=== PATIENT | female | born 1955 | race African-American/Black ===

== ENCOUNTER 2019-01-17 03:26 | Inpatient (IN) | payer MEDICARE, MEDICAID ==
[~2019-01-17] VITALS: Ht 154.9 cm; Wt 86.8 kg
[~2019-01-17 03:26] MED LIST: ATOR-2 PO; CALC667C4 PO; CATATTS2 TD; CINA60 PO; HYDR-4134 PO; ISOS20TA8 PO; METO25TA6 PO; NIFE90TA43 PO; REN400 PO
[2019-01-17] MEDS ORDERED: ONDANSETRON HCL 4MG/2ML INJ IV STA (03:36)
[2019-01-17] MEDS ORDERED: NITROGLYCERIN OINT 1GM/INCH UDPKT TD ONE (03:45)
[2019-01-17] MEDS ORDERED: LABETALOL HCL 20MG/4ML CARPUJECT IV ONE (03:45)
[2019-01-17 04:10] LABS: HEMATOCRIT. 50.3 % (36.0-48.0); HEMOGLOBIN. 15.4 g/dL (12.0-16.0); MEAN CORPUSCULAR HEMOGLOBIN 24.1 pg (28.0-32.0); MEAN CORPUSCULAR VOLUME 78.7 fL (81.0-99.0); MEAN PLATELET VOLUME 8.7 fl (7.4-10.4); PLATELET 201 x1000/uL (130-400); RED BLOOD CELL COUNT 6.39 mill/uL (4.2-5.4); RED CELL DISTRIBUTION WIDTH 19.5 % (11.6-14.6)
[2019-01-17 04:15] LABS: CHLORIDE 96 mEq/L (98-107)
[2019-01-17] MEDS ORDERED: AZITHROMYCIN 500 MG in DEXT 5% WATER 250 ML IV ONE (04:30)
[2019-01-17] MEDS ORDERED: SODIUM BICARBONATE 8.4% 1 MEQ/ML 50ML SYR IV ONE ×2 (04:30→17:00)
[2019-01-17] MEDS ORDERED: CEFTRIAXONE 1 G PREMIX 50 ML IV ONE (04:30)
[2019-01-17] MEDS ORDERED: INSULIN REGULAR (HUMULIN R) 300UNITS/3ML IV ONE (04:30)
[2019-01-17] MEDS ORDERED: ALBUTEROL (0.083%) 2.5MG/3ML NEB HHN ONE (04:30)
[2019-01-17] MEDS ORDERED: DEXTROSE 50% WATER 50ML SYRINGE IV ONE (04:30)
[2019-01-17 04:39] LABS: ATYPICAL LYMPHOCYTES 2; NUCLEATED RED BLOOD CELLS 1 /100 WBC
[2019-01-17 04:40] LABS: PLATELET ESTIMATE NORMAL
[2019-01-17] MEDS ORDERED: ALBUTEROL (0.5%) 2.5MG/0.5ML NEB HHN ONE (06:03)
[2019-01-17] MEDS ORDERED: CLONIDINE 0.1MG TABLET PO PRN ×2 (12:45→17:00)
[2019-01-17] MEDS ORDERED: ACETAMINOPHEN 325MG TABLET PO PRN (12:45)
[2019-01-17] MEDS ORDERED: LABETALOL 5MG/ML SYR 20 MG/4 ML SYRINGE IV NR (12:45)
[2019-01-17] MEDS ORDERED: IPRATROPIUM/ALBUTEROL 0.5-3(2.5)MG/3ML NEB HHN PRN (12:45)
[2019-01-17] MEDS ORDERED: CEFTRIAXONE 1 G PREMIX 50 ML IV SCH (13:00)
[2019-01-17] MEDS: BLOOD SUGAR DIAGNOSTIC STRIP TEST SCH ×3 (13:00→21:00)
[2019-01-17] MEDS: INSULIN LISPRO 100 UNITS/ML SUBCUT SCH ×3 (13:20→21:00)
[2019-01-17 14:34] LABS: HEMATOCRIT. 46.4 % (36.0-48.0); HEMOGLOBIN. 14.1 g/dL (12.0-16.0); MEAN CORPUSCULAR HEMOGLOBIN 24.2 pg (28.0-32.0); MEAN CORPUSCULAR VOLUME 79.5 fL (81.0-99.0); MEAN PLATELET VOLUME 7.8 fl (7.4-10.4); PLATELET 167 x1000/uL (130-400); RED BLOOD CELL COUNT 5.83 mill/uL (4.2-5.4); RED CELL DISTRIBUTION WIDTH 19.3 % (11.6-14.6)
[2019-01-17 14:43] LABS: CHLORIDE 99 mEq/L (98-107)
[2019-01-17 16:15] LABS: PLATELET ESTIMATE NORMAL
[2019-01-17] MEDS ORDERED: DEXTROSE 50% WATER 50ML SYRINGE IV NR (17:26)
[2019-01-17] MEDS ORDERED: INSULIN REGULAR (HUMULIN R) 300UNITS/3ML IV SCH (17:28)
[2019-01-17] MEDS ORDERED: SODIUM POLYSTYRENE SULFONATE 15 G/60 ML BOT PO NR (17:30)
[2019-01-17 20:00] VITALS: BP_SYST 111; BP_DIAS 73; BP_DIAS 77
[2019-01-17] MEDS ORDERED: FAMOTIDINE 20MG TABLET PO SCH (21:00)
[2019-01-17 22:00] VITALS: BP 117/80
[2019-01-17] MEDS: DIVALPROEX SODIUM 250MG DR TABLET PO SCH (23:53)
[2019-01-17] MEDS: LEVETIRACETAM 500MG TABLET PO SCH (23:53)
[2019-01-17] MEDS: ATORVASTATIN CALCIUM 40MG TABLET PO SCH (23:53)
[2019-01-17] MEDS: GABAPENTIN 300MG CAPSULE PO SCH (23:53)
[2019-01-18] VITALS (13 sets, daily range): BP systolic 93–138; BP diastolic 54–85
[2019-01-18] MEDS ORDERED: CEFTRIAXONE 1 G PREMIX 50 ML IV SCH (05:00)
[2019-01-18] MEDS ORDERED: AZITHROMYCIN 500 MG in DEXT 5% WATER 250 ML IV SCH (06:00)
[2019-01-18 07:00] LABS: BASOPHILS % 0.5 % (0.0-2.0); EOSINOPHILS % 0.4 % (0.0-5.0); HEMATOCRIT. 46.3 % (36.0-48.0); HEMOGLOBIN. 13.7 g/dL (12.0-16.0); LYMPHOCYTES % 18.1 % (20.0-50.0); MEAN CORPUSCULAR VOLUME 80.9 fL (81.0-99.0); MEAN PLATELET VOLUME 7.9 fl (7.4-10.4); MONOCYTES % 13.2 % (2.0-8.0); NEUTROPHILS % 67.8 % (40.0-76.0); PLATELET 157 x1000/uL (130-400); RED BLOOD CELL COUNT 5.72 mill/uL (4.2-5.4); RED CELL DISTRIBUTION WIDTH 19.3 % (11.6-14.6)
[2019-01-18] MEDS: DIVALPROEX SODIUM 250MG DR TABLET PO SCH ×3 (07:39→16:05)
[2019-01-18] MEDS: BLOOD SUGAR DIAGNOSTIC STRIP TEST SCH ×4 (07:46→20:19)
[2019-01-18] MEDS: INSULIN LISPRO 100 UNITS/ML SUBCUT SCH ×4 (07:47→20:20)
[2019-01-18] MEDS: ENOXAPARIN 40MG/0.4ML SYR SUBCUT SCH (09:00)
[2019-01-18] MEDS: PREDNISOLONE ACETATE 1% OPHTH DROPS 1ML LEFTEYE SCH ×4 (09:14→20:40)
[2019-01-18] MEDS: ASPIRIN 325MG EC TABLET PO SCH (09:15)
[2019-01-18] MEDS: CALCIUM ACETATE 667MG CAPSULE PO SCH ×3 (09:25→18:00)
[2019-01-18] MEDS: METHIMAZOLE 5MG TABLET PO SCH (09:25)
[2019-01-18] MEDS: LEVETIRACETAM 500MG TABLET PO SCH ×2 (09:25→20:41)
[2019-01-18] MEDS: CINACALCET HCL 30MG TABLET PO SCH (09:25)
[2019-01-18] MEDS ORDERED: METHYLPREDNISOLONE SOD SUCC 40 MG/ML VIAL IV SCH (11:00)
[2019-01-18] MEDS: IPRATROPIUM/ALBUTEROL 0.5-3(2.5)MG/3ML NEB HHN SCH ×2 (12:00→21:45)
[2019-01-18] MEDS ORDERED: TERBUTALINE SULFATE 1MG/ML VIAL SUBCUT NR (13:00)
[2019-01-18] MEDS ORDERED: DIPHENHYDRAMINE 50MG/ML VIAL IV PRN (13:00)
[2019-01-18 14:19] LABS: T4 FREE 0.77 ng/dL (0.76-1.46)
[2019-01-18] MEDS ORDERED: LEVOFLOXACIN 500MG PREMIX 100 ML IV NR (15:00)
[2019-01-18] MEDS ORDERED: SODIUM CHLORIDE 10% FOR INH 15ML VIAL NEB INH NR (15:00)
[2019-01-18] MEDS: MONTELUKAST SODIUM 10MG TABLET PO SCH (16:05)
[2019-01-18] MEDS: METHYLPREDNISOLONE SOD SUCC 125 MG/2 ML VIAL IV SCH ×2 (16:06→20:40)
[2019-01-18] MEDS: FAMOTIDINE 20MG/2ML VIAL IV SCH (16:06)
[2019-01-18] MEDS: ATORVASTATIN CALCIUM 40MG TABLET PO SCH (20:40)
[2019-01-18] MEDS: GABAPENTIN 300MG CAPSULE PO SCH (20:41)
[2019-01-18] MEDS: LORATADINE 10MG TABLET PO SCH (20:41)
[2019-01-18] MEDS ORDERED: CLONIDINE 0.2MG TABLET PO PRN (21:45)
[2019-01-18] MEDS ORDERED: HYDRALAZINE HCL 50MG TABLET GT SCH (22:00)
[2019-01-18 22:28] LABS: BG BASE EXCESS -1.4 mmol/L (-2.0-2.0); BG CARBOXYHEMOGLOBIN 1.3 % (0.5-1.5); BG DEOXYHEMOGLOBIN 2.4 % (0.0-5.0); BG FRACTION INSPIRED OXYGEN 36; BG METHEMOGLOBIN 0.4 % (0.0-1.5); BG OXYGEN SATURATION 97.6 % (92.0-98.5); BG OXYHEMOGLOBIN 95.9 % (94.0-97.0); BG PCO2 60.8 mmHg (35.0-45.0); BG PH 7.265 (7.350-7.450); BG PO2 107.8 mmHg (75.0-100.0); BG SAMPLE SITE RIGHT RADIAL; BG VENT MODE NASAL CANNULA
[2019-01-18] MEDS ORDERED: CLONIDINE 0.1MG TABLET GT PRN (23:00)
[2019-01-19] VITALS (12 sets, daily range): BP systolic 97–162; BP diastolic 47–98
[2019-01-19] MEDS: METHYLPREDNISOLONE SOD SUCC 125 MG/2 ML VIAL IV SCH ×3 (00:31→13:13)
[2019-01-19] MEDS: IPRATROPIUM/ALBUTEROL 0.5-3(2.5)MG/3ML NEB HHN SCH ×3 (01:05→20:29)
[2019-01-19] MEDS: DIVALPROEX SODIUM 250MG DR TABLET PO SCH ×3 (06:02→22:10)
[2019-01-19] MEDS: AZITHROMYCIN 500 MG in DEXT 5% WATER 250 ML IV SCH (06:03)
[2019-01-19 07:16] LABS: HEMATOCRIT. 48.1 % (36.0-48.0); HEMOGLOBIN. 14.4 g/dL (12.0-16.0); MEAN CORPUSCULAR HEMOGLOBIN 24.2 pg (28.0-32.0); MEAN CORPUSCULAR VOLUME 80.7 fL (81.0-99.0); MEAN PLATELET VOLUME 8.2 fl (7.4-10.4); PLATELET 163 x1000/uL (130-400); RED BLOOD CELL COUNT 5.95 mill/uL (4.2-5.4); RED CELL DISTRIBUTION WIDTH 18.8 % (11.6-14.6)
[2019-01-19] MEDS: BLOOD SUGAR DIAGNOSTIC STRIP TEST SCH ×4 (08:25→20:58)
[2019-01-19] MEDS: ENOXAPARIN 40MG/0.4ML SYR SUBCUT SCH (08:46)
[2019-01-19] MEDS: ASPIRIN 325MG EC TABLET PO SCH (08:46)
[2019-01-19] MEDS: CALCIUM ACETATE 667MG CAPSULE PO SCH ×3 (08:46→17:48)
[2019-01-19] MEDS: LEVETIRACETAM 500MG TABLET PO SCH ×2 (08:46→21:14)
[2019-01-19] MEDS: CINACALCET HCL 30MG TABLET PO SCH (08:46)
[2019-01-19] MEDS: METHIMAZOLE 5MG TABLET PO SCH (08:46)
[2019-01-19] MEDS: FAMOTIDINE 20MG/2ML VIAL IV SCH (08:57)
[2019-01-19] MEDS: PREDNISOLONE ACETATE 1% OPHTH DROPS 1ML LEFTEYE SCH ×4 (08:58→21:13)
[2019-01-19] MEDS: INSULIN LISPRO 100 UNITS/ML SUBCUT SCH ×4 (08:59→21:19)
[2019-01-19 10:40] LABS: PLATELET ESTIMATE NORMAL
[2019-01-19 14:44] LABS: BG BASE EXCESS -3.9 mmol/L (-2.0-2.0); BG CARBOXYHEMOGLOBIN 1.2 % (0.5-1.5); BG DEOXYHEMOGLOBIN 2.7 % (0.0-5.0); BG FRACTION INSPIRED OXYGEN 28; BG HCO3 ACT 25.2 mmol/L (22.0-26.0); BG METHEMOGLOBIN 0.3 % (0.0-1.5); BG OXYGEN SATURATION 97.3 % (92.0-98.5); BG OXYHEMOGLOBIN 95.8 % (94.0-97.0); BG PCO2 63.3 mmHg (35.0-45.0); BG PH 7.217 (7.350-7.450); BG PO2 111.5 mmHg (75.0-100.0); BG SAMPLE SITE RIGHT RADIAL; BG TOTAL HEMOGLOBIN 14.9 g/dL (12.0-18.0); BG VENT MODE NASAL CANNULA
[2019-01-19] MEDS: MONTELUKAST SODIUM 10MG TABLET PO SCH (17:48)
[2019-01-19] MEDS: LORATADINE 10MG TABLET PO SCH (21:13)
[2019-01-19] MEDS: ATORVASTATIN CALCIUM 40MG TABLET PO SCH (21:14)
[2019-01-19] MEDS: GABAPENTIN 300MG CAPSULE PO SCH (21:15)
[2019-01-19] MEDS: METHYLPREDNISOLONE SOD SUCC 40 MG/ML VIAL IV SCH (22:11)
[2019-01-20] VITALS (12 sets, daily range): BP systolic 90–135; BP diastolic 51–83
[2019-01-20] MEDS: IPRATROPIUM/ALBUTEROL 0.5-3(2.5)MG/3ML NEB HHN SCH ×4 (01:44→21:10)
[2019-01-20 06:14] LABS: HEMATOCRIT. 47.5 % (36.0-48.0); HEMOGLOBIN. 14.5 g/dL (12.0-16.0); MEAN CORPUSCULAR HEMOGLOBIN 24.3 pg (28.0-32.0); MEAN CORPUSCULAR VOLUME 79.6 fL (81.0-99.0); MEAN PLATELET VOLUME 8.1 fl (7.4-10.4); PLATELET 209 x1000/uL (130-400); RED BLOOD CELL COUNT 5.96 mill/uL (4.2-5.4); RED CELL DISTRIBUTION WIDTH 18.8 % (11.6-14.6)
[2019-01-20] MEDS: METHYLPREDNISOLONE SOD SUCC 40 MG/ML VIAL IV SCH ×2 (06:14→21:08)
[2019-01-20] MEDS: DIVALPROEX SODIUM 250MG DR TABLET PO SCH ×3 (06:15→22:47)
[2019-01-20] MEDS: AZITHROMYCIN 500 MG in DEXT 5% WATER 250 ML IV SCH (06:18)
[2019-01-20] MEDS: BLOOD SUGAR DIAGNOSTIC STRIP TEST SCH ×4 (07:30→20:52)
[2019-01-20] MEDS: CALCIUM ACETATE 667MG CAPSULE PO SCH ×3 (08:45→18:31)
[2019-01-20] MEDS: ASPIRIN 325MG EC TABLET PO SCH (08:45)
[2019-01-20] MEDS: LEVETIRACETAM 500MG TABLET PO SCH ×2 (08:46→21:12)
[2019-01-20] MEDS: CINACALCET HCL 30MG TABLET PO SCH (08:46)
[2019-01-20] MEDS: FAMOTIDINE 20MG/2ML VIAL IV SCH (08:46)
[2019-01-20] MEDS: METHIMAZOLE 5MG TABLET PO SCH (08:46)
[2019-01-20] MEDS: ENOXAPARIN 40MG/0.4ML SYR SUBCUT SCH (08:46)
[2019-01-20] MEDS: PREDNISOLONE ACETATE 1% OPHTH DROPS 1ML LEFTEYE SCH ×4 (08:47→21:17)
[2019-01-20] MEDS: INSULIN LISPRO 100 UNITS/ML SUBCUT SCH ×4 (08:48→21:16)
[2019-01-20 10:27] LABS: BG BASE EXCESS -7.4 mmol/L (-2.0-2.0); BG CARBOXYHEMOGLOBIN 1.1 % (0.5-1.5); BG DEOXYHEMOGLOBIN 2.7 % (0.0-5.0); BG FRACTION INSPIRED OXYGEN 28; BG HCO3 ACT 21.5 mmol/L (22.0-26.0); BG METHEMOGLOBIN 0.3 % (0.0-1.5); BG OXYGEN SATURATION 97.3 % (92.0-98.5); BG OXYHEMOGLOBIN 95.9 % (94.0-97.0); BG PCO2 57.2 mmHg (35.0-45.0); BG PH 7.192 (7.350-7.450); BG PO2 108.2 mmHg (75.0-100.0); BG SAMPLE SITE RIGHT BRACHIAL; BG TOTAL HEMOGLOBIN 14.8 g/dL (12.0-18.0); BG VENT MODE NASAL CANNULA
[2019-01-20 14:14] LABS: PLATELET ESTIMATE NORMAL
[2019-01-20] MEDS ORDERED: LEVOFLOXACIN 250MG PREMIX 50 ML IV SCH (15:00)
[2019-01-20] MEDS: MONTELUKAST SODIUM 10MG TABLET PO SCH (16:19)
[2019-01-20] MEDS: LEVOFLOXACIN 250MG PREMIX 50 ML IV SCH (16:20)
[2019-01-20] MEDS: LORATADINE 10MG TABLET PO SCH (21:11)
[2019-01-20] MEDS: ATORVASTATIN CALCIUM 40MG TABLET PO SCH (21:13)
[2019-01-20] MEDS: GABAPENTIN 300MG CAPSULE PO SCH (21:13)
[2019-01-21] VITALS (20 sets, daily range): BP systolic 76–148; BP diastolic 30–80
[2019-01-21] MEDS: IPRATROPIUM/ALBUTEROL 0.5-3(2.5)MG/3ML NEB HHN SCH ×4 (02:17→21:30)
[2019-01-21] MEDS: AZITHROMYCIN 500 MG in DEXT 5% WATER 250 ML IV SCH (05:33)
[2019-01-21 06:05] LABS: HEMATOCRIT. 46.8 % (36.0-48.0); HEMOGLOBIN. 14.3 g/dL (12.0-16.0); MEAN CORPUSCULAR VOLUME 78.9 fL (81.0-99.0); MEAN PLATELET VOLUME 7.8 fl (7.4-10.4); PLATELET 203 x1000/uL (130-400); RED BLOOD CELL COUNT 5.94 mill/uL (4.2-5.4); RED CELL DISTRIBUTION WIDTH 18.9 % (11.6-14.6)
[2019-01-21] MEDS: DIVALPROEX SODIUM 250MG DR TABLET PO SCH ×3 (06:19→21:33)
[2019-01-21] MEDS: BLOOD SUGAR DIAGNOSTIC STRIP TEST SCH ×4 (07:30→21:33)
[2019-01-21] MEDS: INSULIN LISPRO 100 UNITS/ML SUBCUT SCH ×4 (08:00→21:43)
[2019-01-21 08:43] LABS: BG BASE EXCESS -2.7 mmol/L (-2.0-2.0); BG BILEVEL POS AIRWAY PRESSURE ST=20/5; BG CARBOXYHEMOGLOBIN 0.9 % (0.5-1.5); BG DEOXYHEMOGLOBIN 3.1 % (0.0-5.0); BG FRACTION INSPIRED OXYGEN 30; BG HCO3 ACT 25.7 mmol/L (22.0-26.0); BG METHEMOGLOBIN 0.2 % (0.0-1.5); BG OXYGEN SATURATION 96.9 % (92.0-98.5); BG OXYHEMOGLOBIN 95.8 % (94.0-97.0); BG PRESSURE SUPPORT 15; BG SAMPLE SITE RIGHT BRACHIAL; BG TOTAL HEMOGLOBIN 14.8 g/dL (12.0-18.0); BG VENT MODE MASK - BIPAP; BG VENT RATE 18 set
[2019-01-21] MEDS: CALCIUM ACETATE 667MG CAPSULE PO SCH ×3 (09:09→18:00)
[2019-01-21] MEDS: ENOXAPARIN 40MG/0.4ML SYR SUBCUT SCH (09:09)
[2019-01-21] MEDS: LEVETIRACETAM 500MG TABLET PO SCH ×2 (09:09→21:32)
[2019-01-21] MEDS: CINACALCET HCL 30MG TABLET PO SCH (09:09)
[2019-01-21] MEDS: METHYLPREDNISOLONE SOD SUCC 40 MG/ML VIAL IV SCH ×2 (09:09→21:33)
[2019-01-21] MEDS: FAMOTIDINE 20MG/2ML VIAL IV SCH (09:09)
[2019-01-21] MEDS: METHIMAZOLE 5MG TABLET PO SCH (09:09)
[2019-01-21] MEDS: ASPIRIN 325MG EC TABLET PO SCH (09:09)
[2019-01-21] MEDS: PREDNISOLONE ACETATE 1% OPHTH DROPS 1ML LEFTEYE SCH ×4 (09:10→21:33)
[2019-01-21 13:44] LABS: PLATELET ESTIMATE NORMAL
[2019-01-21] MEDS ORDERED: SODIUM CHLORIDE 10% FOR INH 15ML VIAL NEB INH SCH (14:00)
[2019-01-21] MEDS: MONTELUKAST SODIUM 10MG TABLET PO SCH (17:00)
[2019-01-21] MEDS: ATORVASTATIN CALCIUM 40MG TABLET PO SCH (21:32)
[2019-01-21] MEDS: GABAPENTIN 300MG CAPSULE PO SCH (21:33)
[2019-01-21] MEDS: LORATADINE 10MG TABLET PO SCH (21:33)
[2019-01-22] VITALS (23 sets, daily range): BP systolic 87–169; BP diastolic 61–94
[2019-01-22] MEDS: IPRATROPIUM/ALBUTEROL 0.5-3(2.5)MG/3ML NEB HHN SCH ×5 (02:09→23:58)
[2019-01-22] MEDS: AZITHROMYCIN 500 MG in DEXT 5% WATER 250 ML IV SCH (06:36)
[2019-01-22] MEDS: BLOOD SUGAR DIAGNOSTIC STRIP TEST SCH ×4 (06:36→20:19)
[2019-01-22] MEDS: DIVALPROEX SODIUM 250MG DR TABLET PO SCH ×3 (06:39→22:09)
[2019-01-22] MEDS: INSULIN LISPRO 100 UNITS/ML SUBCUT SCH ×4 (08:00→20:32)
[2019-01-22] MEDS: ENOXAPARIN 40MG/0.4ML SYR SUBCUT SCH (09:23)
[2019-01-22] MEDS: METHIMAZOLE 5MG TABLET PO SCH (09:24)
[2019-01-22] MEDS: FAMOTIDINE 20MG/2ML VIAL IV SCH (09:24)
[2019-01-22] MEDS: PREDNISOLONE ACETATE 1% OPHTH DROPS 1ML LEFTEYE SCH ×4 (09:24→20:19)
[2019-01-22] MEDS: CALCIUM ACETATE 667MG CAPSULE PO SCH ×3 (09:24→18:26)
[2019-01-22] MEDS: METHYLPREDNISOLONE SOD SUCC 40 MG/ML VIAL IV SCH (09:24)
[2019-01-22] MEDS: CINACALCET HCL 30MG TABLET PO SCH (09:25)
[2019-01-22] MEDS: LEVETIRACETAM 500MG TABLET PO SCH ×2 (09:25→20:19)
[2019-01-22] MEDS: ASPIRIN 325MG EC TABLET PO SCH (09:25)
[2019-01-22] MEDS: LEVOFLOXACIN 250MG PREMIX 50 ML IV SCH (13:57)
[2019-01-22] MEDS: ACETYLCYSTEINE 100MG/ML 10% VIAL 4ML INH SCH ×2 (15:36→23:58)
[2019-01-22] MEDS: PREDNISONE 20MG TABLET PO SCH (17:20)
[2019-01-22] MEDS: MONTELUKAST SODIUM 10MG TABLET PO SCH (17:21)
[2019-01-22] MEDS: ATORVASTATIN CALCIUM 40MG TABLET PO SCH (20:19)
[2019-01-22] MEDS: LORATADINE 10MG TABLET PO SCH (20:19)
[2019-01-22] MEDS: GABAPENTIN 300MG CAPSULE PO SCH (20:19)
[2019-01-23] VITALS (10 sets, daily range): BP systolic 97–142; BP diastolic 49–89
[2019-01-23] MEDS: IPRATROPIUM/ALBUTEROL 0.5-3(2.5)MG/3ML NEB HHN SCH ×5 (04:07→20:57)
[2019-01-23] MEDS: DIVALPROEX SODIUM 250MG DR TABLET PO SCH ×3 (06:12→21:03)
[2019-01-23] MEDS: BLOOD SUGAR DIAGNOSTIC STRIP TEST SCH ×4 (07:30→21:00)
[2019-01-23] MEDS: ASPIRIN 325MG EC TABLET PO SCH (08:03)
[2019-01-23] MEDS: CINACALCET HCL 30MG TABLET PO SCH (08:03)
[2019-01-23] MEDS: ENOXAPARIN 40MG/0.4ML SYR SUBCUT SCH (08:03)
[2019-01-23] MEDS: CALCIUM ACETATE 667MG CAPSULE PO SCH ×3 (08:04→17:30)
[2019-01-23] MEDS: LEVETIRACETAM 500MG TABLET PO SCH ×2 (08:04→21:02)
[2019-01-23] MEDS: AZITHROMYCIN 500 MG TABLET PO SCH (08:04)
[2019-01-23] MEDS: METHIMAZOLE 5MG TABLET PO SCH (08:04)
[2019-01-23] MEDS: INSULIN LISPRO 100 UNITS/ML SUBCUT SCH ×4 (08:21→21:00)
[2019-01-23] MEDS: PREDNISONE 20MG TABLET PO SCH ×2 (09:00→17:05)
[2019-01-23] MEDS: FAMOTIDINE 20MG/2ML VIAL IV SCH (09:00)
[2019-01-23] MEDS: PREDNISOLONE ACETATE 1% OPHTH DROPS 1ML LEFTEYE SCH ×4 (09:00→21:19)
[2019-01-23] MEDS: ACETYLCYSTEINE 100MG/ML 10% VIAL 4ML INH SCH ×2 (09:11→17:06)
[2019-01-23] MEDS: MONTELUKAST SODIUM 10MG TABLET PO SCH (17:28)
[2019-01-23] MEDS: ONDANSETRON HCL 4MG/2ML INJ IV PRN (19:49)
[2019-01-23] MEDS: LORATADINE 10MG TABLET PO SCH (21:02)
[2019-01-23] MEDS: ATORVASTATIN CALCIUM 40MG TABLET PO SCH (21:02)
[2019-01-23] MEDS: GABAPENTIN 300MG CAPSULE PO SCH (21:03)
[2019-01-24] VITALS (13 sets, daily range): BP systolic 119–141; BP diastolic 62–79
[2019-01-24] MEDS: IPRATROPIUM/ALBUTEROL 0.5-3(2.5)MG/3ML NEB HHN SCH ×6 (00:34→20:57)
[2019-01-24] MEDS: ACETYLCYSTEINE 100MG/ML 10% VIAL 4ML INH SCH ×2 (00:34→07:31)
[2019-01-24] MEDS: DIVALPROEX SODIUM 250MG DR TABLET PO SCH ×3 (06:02→21:36)
[2019-01-24 06:09] LABS: HEMATOCRIT. 44.6 % (36.0-48.0); HEMOGLOBIN. 13.8 g/dL (12.0-16.0); MEAN CORPUSCULAR HEMOGLOBIN 24.5 pg (28.0-32.0); MEAN PLATELET VOLUME 7.4 fl (7.4-10.4); PLATELET 182 x1000/uL (130-400); RED BLOOD CELL COUNT 5.65 mill/uL (4.2-5.4); RED CELL DISTRIBUTION WIDTH 18.9 % (11.6-14.6)
[2019-01-24] MEDS: BLOOD SUGAR DIAGNOSTIC STRIP TEST SCH ×4 (07:30→21:38)
[2019-01-24] MEDS: INSULIN LISPRO 100 UNITS/ML SUBCUT SCH ×4 (08:00→21:38)
[2019-01-24] MEDS: CALCIUM ACETATE 667MG CAPSULE PO SCH ×3 (08:00→17:46)
[2019-01-24] MEDS: ASPIRIN 325MG EC TABLET PO SCH ×2 (09:00→10:30)
[2019-01-24] MEDS: AZITHROMYCIN 500 MG TABLET PO SCH (10:30)
[2019-01-24] MEDS: FAMOTIDINE 20MG/2ML VIAL IV SCH (10:30)
[2019-01-24] MEDS: METHIMAZOLE 5MG TABLET PO SCH (10:30)
[2019-01-24] MEDS: LEVETIRACETAM 500MG TABLET PO SCH ×2 (10:31→21:36)
[2019-01-24] MEDS: PREDNISONE 20MG TABLET PO SCH (10:31)
[2019-01-24] MEDS: CINACALCET HCL 30MG TABLET PO SCH (10:31)
[2019-01-24] MEDS: ENOXAPARIN 40MG/0.4ML SYR SUBCUT SCH (10:32)
[2019-01-24] MEDS: PREDNISOLONE ACETATE 1% OPHTH DROPS 1ML LEFTEYE SCH ×4 (10:35→21:00)
[2019-01-24 10:48] LABS: NUCLEATED RED BLOOD CELLS 1 /100 WBC
[2019-01-24 10:49] LABS: PLATELET ESTIMATE NORMAL
[2019-01-24] MEDS: LEVOFLOXACIN 250MG TABLET PO SCH (14:40)
[2019-01-24] MEDS: MONTELUKAST SODIUM 10MG TABLET PO SCH (17:50)
[2019-01-24] MEDS: GABAPENTIN 300MG CAPSULE PO SCH (21:36)
[2019-01-24] MEDS: ATORVASTATIN CALCIUM 40MG TABLET PO SCH (21:36)
[2019-01-24] MEDS: LORATADINE 10MG TABLET PO SCH (21:36)
[2019-01-25] VITALS (12 sets, daily range): BP systolic 119–176; BP diastolic 53–111
[2019-01-25] MEDS: IPRATROPIUM/ALBUTEROL 0.5-3(2.5)MG/3ML NEB HHN SCH ×6 (00:42→21:06)
[2019-01-25] MEDS: DIVALPROEX SODIUM 250MG DR TABLET PO SCH ×3 (06:24→21:05)
[2019-01-25] MEDS: BLOOD SUGAR DIAGNOSTIC STRIP TEST SCH ×4 (06:25→21:00)
[2019-01-25] MEDS: INSULIN LISPRO 100 UNITS/ML SUBCUT SCH ×4 (06:25→21:43)
[2019-01-25 08:16] LABS: CANCER ANTIGEN 125 6.1 U/mL (0.0-38.1)
[2019-01-25] MEDS: CALCIUM ACETATE 667MG CAPSULE PO SCH ×3 (09:10→17:59)
[2019-01-25] MEDS: FAMOTIDINE 20MG/2ML VIAL IV SCH (09:11)
[2019-01-25] MEDS: ENOXAPARIN 40MG/0.4ML SYR SUBCUT SCH (09:11)
[2019-01-25] MEDS: PREDNISONE 20MG TABLET PO SCH (09:11)
[2019-01-25] MEDS: ASPIRIN 325MG EC TABLET PO SCH (09:12)
[2019-01-25] MEDS: LEVETIRACETAM 500MG TABLET PO SCH ×2 (09:12→21:05)
[2019-01-25] MEDS: METHIMAZOLE 5MG TABLET PO SCH (09:12)
[2019-01-25] MEDS: AZITHROMYCIN 500 MG TABLET PO SCH (09:12)
[2019-01-25] MEDS: CINACALCET HCL 30MG TABLET PO SCH (09:12)
[2019-01-25] MEDS: PREDNISOLONE ACETATE 1% OPHTH DROPS 1ML LEFTEYE SCH ×4 (09:14→21:16)
[2019-01-25] MEDS: MONTELUKAST SODIUM 10MG TABLET PO SCH (17:59)
[2019-01-25] MEDS ORDERED: LACTULOSE 20G/30ML UDC PO PRN (19:00)
[2019-01-25] MEDS: ATORVASTATIN CALCIUM 40MG TABLET PO SCH (21:05)
[2019-01-25] MEDS: LORATADINE 10MG TABLET PO SCH (21:05)
[2019-01-25] MEDS: GABAPENTIN 300MG CAPSULE PO SCH (21:05)
[2019-01-26] VITALS (11 sets, daily range): BP systolic 127–174; BP diastolic 69–94
[2019-01-26] MEDS: IPRATROPIUM/ALBUTEROL 0.5-3(2.5)MG/3ML NEB HHN SCH ×7 (00:22→23:47)
[2019-01-26] MEDS: DIVALPROEX SODIUM 250MG DR TABLET PO SCH ×3 (06:37→21:51)
[2019-01-26] MEDS: BLOOD SUGAR DIAGNOSTIC STRIP TEST SCH ×4 (07:30→21:51)
[2019-01-26] MEDS: INSULIN LISPRO 100 UNITS/ML SUBCUT SCH ×4 (08:00→21:52)
[2019-01-26] MEDS: FAMOTIDINE 20MG/2ML VIAL IV SCH (08:41)
[2019-01-26] MEDS: PREDNISONE 20MG TABLET PO SCH (08:41)
[2019-01-26] MEDS: LEVETIRACETAM 500MG TABLET PO SCH ×2 (08:41→21:51)
[2019-01-26] MEDS: METHIMAZOLE 5MG TABLET PO SCH (08:41)
[2019-01-26] MEDS: CALCIUM ACETATE 667MG CAPSULE PO SCH ×3 (08:41→17:17)
[2019-01-26] MEDS: CINACALCET HCL 30MG TABLET PO SCH (08:41)
[2019-01-26] MEDS: ENOXAPARIN 40MG/0.4ML SYR SUBCUT SCH (08:52)
[2019-01-26] MEDS: PREDNISOLONE ACETATE 1% OPHTH DROPS 1ML LEFTEYE SCH ×4 (08:53→21:51)
[2019-01-26] MEDS: LEVOFLOXACIN 250MG TABLET PO SCH (14:29)
[2019-01-26] MEDS: MONTELUKAST SODIUM 10MG TABLET PO SCH (17:17)
[2019-01-26] MEDS: ATORVASTATIN CALCIUM 40MG TABLET PO SCH (21:51)
[2019-01-26] MEDS: LORATADINE 10MG TABLET PO SCH (21:51)
[2019-01-26] MEDS: GABAPENTIN 300MG CAPSULE PO SCH (21:51)
[2019-01-27] VITALS (15 sets, daily range): BP systolic 130–191; BP diastolic 65–128
[2019-01-27] MEDS: IPRATROPIUM/ALBUTEROL 0.5-3(2.5)MG/3ML NEB HHN SCH ×5 (04:02→21:19)
[2019-01-27] MEDS: DIVALPROEX SODIUM 250MG DR TABLET PO SCH (05:45)
[2019-01-27] MEDS: INSULIN LISPRO 100 UNITS/ML SUBCUT SCH ×4 (08:00→20:38)
[2019-01-27] MEDS: BLOOD SUGAR DIAGNOSTIC STRIP TEST SCH ×4 (08:32→20:38)
[2019-01-27] MEDS: FAMOTIDINE 20MG/2ML VIAL IV SCH (08:32)
[2019-01-27] MEDS: METHIMAZOLE 5MG TABLET PO SCH (08:33)
[2019-01-27] MEDS: ENOXAPARIN 40MG/0.4ML SYR SUBCUT SCH (08:33)
[2019-01-27] MEDS: CINACALCET HCL 30MG TABLET PO SCH (08:33)
[2019-01-27] MEDS: PREDNISONE 20MG TABLET PO SCH (08:33)
[2019-01-27] MEDS: CALCIUM ACETATE 667MG CAPSULE PO SCH ×3 (08:33→17:37)
[2019-01-27] MEDS: ASPIRIN 325MG EC TABLET PO SCH (08:33)
[2019-01-27] MEDS: LEVETIRACETAM 500MG TABLET PO SCH (08:35)
[2019-01-27] MEDS: PREDNISOLONE ACETATE 1% OPHTH DROPS 1ML LEFTEYE SCH ×4 (08:53→20:38)
[2019-01-27 11:25] LABS: BG BASE EXCESS -5.5 mmol/L (-2.0-2.0); BG CARBOXYHEMOGLOBIN 1.1 % (0.5-1.5); BG DEOXYHEMOGLOBIN 10.2 % (0.0-5.0); BG HCO3 ACT 23.2 mmol/L (22.0-26.0); BG METHEMOGLOBIN 0.3 % (0.0-1.5); BG OXYGEN SATURATION 89.7 % (92.0-98.5); BG OXYHEMOGLOBIN 88.4 % (94.0-97.0); BG PH 7.213 (7.350-7.450); BG PO2 67.5 mmHg (75.0-100.0); BG SAMPLE SITE RIGHT RADIAL; BG TOTAL HEMOGLOBIN 14.2 g/dL (12.0-18.0); BG VENT MODE ROOM AIR
[2019-01-27] MEDS ORDERED: ASPI-986 PO (12:57)
[2019-01-27] MEDS ORDERED: CINA30 MT (12:57)
[2019-01-27] MEDS ORDERED: TAP5 MT (12:57)
[2019-01-27] MEDS ORDERED: GABA-531 MT (12:57)
[2019-01-27] MEDS ORDERED: ONDA8TAB59 MT (12:57)
[2019-01-27] MEDS ORDERED: FAMO-135 MT (12:57)
[2019-01-27] MEDS ORDERED: DOCU250C69 MT (12:57)
[2019-01-27] MEDS ORDERED: HYDR-4135 MT (12:57)
[2019-01-27] MEDS ORDERED: KEPP500 MT (12:57)
[2019-01-27] MEDS ORDERED: SUCR500T PO (12:57)
[2019-01-27] MEDS ORDERED: HYDR-4001 PO (12:57)
[2019-01-27] MEDS ORDERED: SENN-170 MT (12:57)
[2019-01-27] MEDS: CLONIDINE 0.1MG TABLET PO PRN (14:29)
[2019-01-27] MEDS ORDERED: SODIUM CHLORIDE 0.9% 10ML VIAL ONE (16:22)
[2019-01-27] MEDS ORDERED: VECURONIUM BROMIDE 10 MG/VIAL IV ONE (16:22)
[2019-01-27] MEDS ORDERED: ETOMIDATE 2MG/ML 10ML VIAL IV ONE (16:22)
[2019-01-27] MEDS: MONTELUKAST SODIUM 10MG TABLET PO SCH (17:37)
[2019-01-27] MEDS: HYDRALAZINE HCL 50MG TABLET PO SCH (18:50)
[2019-01-27] MEDS: LORATADINE 10MG TABLET PO SCH (20:38)
[2019-01-27] MEDS: ATORVASTATIN CALCIUM 40MG TABLET PO SCH (20:38)
[2019-01-27] MEDS: GABAPENTIN 300MG CAPSULE PO SCH (20:38)
[2019-01-28] VITALS (68 sets, daily range): BP systolic 61–226; BP diastolic 34–116
[2019-01-28] MEDS: IPRATROPIUM/ALBUTEROL 0.5-3(2.5)MG/3ML NEB HHN SCH ×3 (01:52→16:50)
[2019-01-28] MEDS: BLOOD SUGAR DIAGNOSTIC STRIP TEST SCH ×4 (06:24→21:36)
[2019-01-28] MEDS: INSULIN LISPRO 100 UNITS/ML SUBCUT SCH ×4 (08:00→21:36)
[2019-01-28] MEDS: ONDANSETRON HCL 4MG/2ML INJ IV PRN (08:30)
[2019-01-28 08:49] LABS: BG BASE EXCESS -9.6 mmol/L (-2.0-2.0); BG CARBOXYHEMOGLOBIN 0.8 % (0.5-1.5); BG DEOXYHEMOGLOBIN 2.6 % (0.0-5.0); BG FRACTION INSPIRED OXYGEN 28; BG HCO3 ACT 19.9 mmol/L (22.0-26.0); BG METHEMOGLOBIN 0.5 % (0.0-1.5); BG OXYGEN SATURATION 97.4 % (92.0-98.5); BG OXYHEMOGLOBIN 96.1 % (94.0-97.0); BG PCO2 58.1 mmHg (35.0-45.0); BG PH 7.153 (7.350-7.450); BG PO2 117.5 mmHg (75.0-100.0); BG SAMPLE SITE RIGHT RADIAL; BG TOTAL HEMOGLOBIN 15.2 g/dL (12.0-18.0); BG VENT MODE NASAL CANNULA
[2019-01-28] MEDS: METHIMAZOLE 5MG TABLET PO SCH ×2 (09:00→13:09)
[2019-01-28] MEDS: HYDRALAZINE HCL 50MG TABLET PO SCH ×2 (09:00→21:00)
[2019-01-28] MEDS: LEVETIRACETAM 500MG TABLET PO SCH ×2 (10:00→13:08)
[2019-01-28] MEDS: CINACALCET HCL 30MG TABLET PO SCH (10:00)
[2019-01-28] MEDS: ASPIRIN 325MG EC TABLET PO SCH (10:00)
[2019-01-28] MEDS: CALCIUM ACETATE 667MG CAPSULE PO SCH ×5 (10:00→18:22)
[2019-01-28] MEDS: PROPOFOL 10MG/ML 100ML 100 ML IV PRN ×2 (11:01→17:39)
[2019-01-28 11:23] LABS: BG BASE EXCESS -6.7 mmol/L (-2.0-2.0); BG CARBOXYHEMOGLOBIN 0.9 % (0.5-1.5); BG DEOXYHEMOGLOBIN 1.8 % (0.0-5.0); BG FRACTION INSPIRED OXYGEN 50; BG HCO3 ACT 17.7 mmol/L (22.0-26.0); BG METHEMOGLOBIN 0.4 % (0.0-1.5); BG OXYGEN SATURATION 98.2 % (92.0-98.5); BG OXYHEMOGLOBIN 96.9 % (94.0-97.0); BG PCO2 32.6 mmHg (35.0-45.0); BG PH 7.353 (7.350-7.450); BG PO2 117.8 mmHg (75.0-100.0); BG SAMPLE SITE RIGHT RADIAL; BG TIDAL VOLUME(mL) 500 mL; BG TOTAL HEMOGLOBIN 15.3 g/dL (12.0-18.0); BG VENT MODE VENT - A/C; BG VENT RATE 18 set
[2019-01-28] MEDS: DEXTROSE 50% WATER 50ML SYRINGE IV PRN ×2 (12:27→19:19)
[2019-01-28] MEDS: PREDNISOLONE ACETATE 1% OPHTH DROPS 1ML LEFTEYE SCH ×3 (13:00→21:38)
[2019-01-28] MEDS: FAMOTIDINE 20MG/2ML VIAL IV SCH (13:08)
[2019-01-28] MEDS: METHYLPREDNISOLONE SOD SUCC 40 MG/ML VIAL IV SCH ×2 (13:08→18:22)
[2019-01-28] MEDS: ENOXAPARIN 40MG/0.4ML SYR SUBCUT SCH (13:09)
[2019-01-28 13:23] LABS: BASOPHILS % 0.1 % (0.0-2.0); EOSINOPHILS % 1.2 % (0.0-5.0); HEMATOCRIT. 42.6 % (36.0-48.0); HEMOGLOBIN. 13.4 g/dL (12.0-16.0); LYMPHOCYTES % 8.4 % (20.0-50.0); MEAN CORPUSCULAR HEMOGLOBIN 24.2 pg (28.0-32.0); MEAN PLATELET VOLUME 7.6 fl (7.4-10.4); MONOCYTES % 4.9 % (2.0-8.0); NEUTROPHILS % 85.4 % (40.0-76.0); PLATELET 138 x1000/uL (130-400); RED BLOOD CELL COUNT 5.53 mill/uL (4.2-5.4); RED CELL DISTRIBUTION WIDTH 18.8 % (11.6-14.6)
[2019-01-28] MEDS ORDERED: ALBUMIN HUMAN 25GM/100ML (25%) IV NR (16:45)
[2019-01-28] MEDS ORDERED: NOREPINEPHRINE 32 MG in DEXT 5% WATER 468 ML IV PRN (16:45)
[2019-01-28] MEDS: MONTELUKAST SODIUM 10MG TABLET PO SCH ×2 (18:00→18:22)
[2019-01-28] MEDS ORDERED: DEXTROSE 50% WATER 50ML SYRINGE IV ONE (18:52)
[2019-01-28] MEDS ORDERED: EPINEPHRINE 0.1MG/ML (1:10,000) 10ML SYR ONE (18:52)
[2019-01-28 20:07] LABS: BG CARBOXYHEMOGLOBIN 1.1 % (0.5-1.5); BG DEOXYHEMOGLOBIN 0.6 % (0.0-5.0); BG FRACTION INSPIRED OXYGEN 100; BG HCO3 ACT 19.7 mmol/L (22.0-26.0); BG METHEMOGLOBIN 0.4 % (0.0-1.5); BG OXYGEN SATURATION 99.4 % (92.0-98.5); BG OXYHEMOGLOBIN 97.9 % (94.0-97.0); BG PCO2 32.3 mmHg (35.0-45.0); BG PH 7.403 (7.350-7.450); BG PO2 259.9 mmHg (75.0-100.0); BG SAMPLE SITE RIGHT RADIAL; BG TIDAL VOLUME(mL) 500 mL; BG TOTAL HEMOGLOBIN 14.7 g/dL (12.0-18.0); BG VENT MODE VENT - A/C; BG VENT RATE 16 set
[2019-01-28 20:35] LABS: HEMOGLOBIN. 14.1 g/dL (12.0-16.0); MEAN CORPUSCULAR VOLUME 76.4 fL (81.0-99.0); MEAN PLATELET VOLUME 7.4 fl (7.4-10.4); PLATELET 163 x1000/uL (130-400); RED BLOOD CELL COUNT 5.89 mill/uL (4.2-5.4); RED CELL DISTRIBUTION WIDTH 19.2 % (11.6-14.6)
[2019-01-28] MEDS: LORATADINE 10MG TABLET PO SCH (21:00)
[2019-01-28] MEDS: ATORVASTATIN CALCIUM 40MG TABLET PO SCH (21:00)
[2019-01-28] MEDS: GABAPENTIN 300MG CAPSULE PO SCH (21:00)
[2019-01-28 22:15] LABS: NUCLEATED RED BLOOD CELLS 3 /100 WBC
[2019-01-28 22:16] LABS: PLATELET ESTIMATE NORMAL
[2019-01-29] VITALS (96 sets, daily range): BP systolic 65–165; BP diastolic 33–99
[2019-01-29] MEDS: IPRATROPIUM/ALBUTEROL 0.5-3(2.5)MG/3ML NEB HHN SCH ×7 (00:37→23:47)
[2019-01-29] MEDS: METHYLPREDNISOLONE SOD SUCC 40 MG/ML VIAL IV SCH ×3 (03:21→18:45)
[2019-01-29] MEDS: BLOOD SUGAR DIAGNOSTIC STRIP TEST SCH ×4 (06:02→20:58)
[2019-01-29] MEDS: INSULIN LISPRO 100 UNITS/ML SUBCUT SCH ×4 (06:07→21:10)
[2019-01-29] MEDS: CALCIUM ACETATE 667MG CAPSULE PO SCH ×3 (06:08→17:00)
[2019-01-29 07:44] LABS: BG BASE EXCESS -2.6 mmol/L (-2.0-2.0); BG DEOXYHEMOGLOBIN 0.4 % (0.0-5.0); BG METHEMOGLOBIN 0.6 % (0.0-1.5); BG OXYGEN SATURATION 99.6 % (92.0-98.5); BG PCO2 33.5 mmHg (35.0-45.0); BG PH 7.416 (7.350-7.450); BG PO2 339.2 mmHg (75.0-100.0); BG SAMPLE SITE RIGHT RADIAL; BG TIDAL VOLUME(mL) 500 mL; BG TOTAL HEMOGLOBIN 14.7 g/dL (12.0-18.0); BG VENT MODE VENT - A/C; BG VENT RATE 16 set
[2019-01-29 08:30] LABS: HEMOGLOBIN. 13.8 g/dL (12.0-16.0); MEAN CORPUSCULAR HEMOGLOBIN 23.9 pg (28.0-32.0); MEAN CORPUSCULAR VOLUME 76.2 fL (81.0-99.0); MEAN PLATELET VOLUME 8.5 fl (7.4-10.4); PLATELET 147 x1000/uL (130-400); RED BLOOD CELL COUNT 5.77 mill/uL (4.2-5.4); RED CELL DISTRIBUTION WIDTH 19.3 % (11.6-14.6)
[2019-01-29 08:34] LABS: PHOSPHORUS 5.9 mg/dL (2.5-4.9)
[2019-01-29] MEDS: ASPIRIN 325MG EC TABLET PO SCH (09:00)
[2019-01-29] MEDS: ENOXAPARIN 40MG/0.4ML SYR SUBCUT SCH (09:00)
[2019-01-29] MEDS: METHIMAZOLE 5MG TABLET PO SCH (09:00)
[2019-01-29] MEDS: CINACALCET HCL 30MG TABLET PO SCH (09:00)
[2019-01-29] MEDS: HYDRALAZINE HCL 50MG TABLET PO SCH ×2 (09:00→20:57)
[2019-01-29 09:34] LABS: PLATELET ESTIMATE NORMAL
[2019-01-29] MEDS: FAMOTIDINE 20MG/2ML VIAL IV SCH (09:44)
[2019-01-29] MEDS: PREDNISOLONE ACETATE 1% OPHTH DROPS 1ML LEFTEYE SCH ×4 (09:44→20:56)
[2019-01-29] MEDS ORDERED: PIPERACILLIN/TAZ 3.375G PREMIX 50 ML IV SCH (14:30)
[2019-01-29] MEDS: LEVETIRACETAM 500 MG in SODIUM CHLORIDE 0.9% 100 ML IV SCH (14:49)
[2019-01-29] MEDS ORDERED: VANCOMYCIN 1500MG in DEXTROSE 5% WATER 250ML IV NR (16:00)
[2019-01-29] MEDS: PROPOFOL 10MG/ML 100ML 100 ML IV PRN (16:02)
[2019-01-29] MEDS: PIPERACILLIN/TAZ 2.25G PREMIX 50 ML IV SCH ×2 (16:22→21:00)
[2019-01-29] MEDS: MONTELUKAST SODIUM 10MG TABLET PO SCH (17:00)
[2019-01-29] MEDS: GABAPENTIN 300MG CAPSULE PO SCH (20:57)
[2019-01-29] MEDS: LORATADINE 10MG TABLET PO SCH (20:57)
[2019-01-29] MEDS: ATORVASTATIN CALCIUM 40MG TABLET PO SCH (20:57)
[2019-01-30] VITALS (93 sets, daily range): BP systolic 82–162; BP diastolic 47–121
[2019-01-30] MEDS: PROPOFOL 10MG/ML 100ML 100 ML IV PRN ×3 (01:15→18:31)
[2019-01-30] MEDS: METHYLPREDNISOLONE SOD SUCC 40 MG/ML VIAL IV SCH ×3 (02:50→18:35)
[2019-01-30] MEDS: IPRATROPIUM/ALBUTEROL 0.5-3(2.5)MG/3ML NEB HHN SCH ×5 (03:50→20:40)
[2019-01-30] MEDS: CALCIUM ACETATE 667MG CAPSULE PO SCH ×3 (06:20→16:42)
[2019-01-30] MEDS: BLOOD SUGAR DIAGNOSTIC STRIP TEST SCH ×4 (06:21→21:59)
[2019-01-30] MEDS: PIPERACILLIN/TAZ 2.25G PREMIX 50 ML IV SCH ×3 (06:21→21:59)
[2019-01-30] MEDS: INSULIN LISPRO 100 UNITS/ML SUBCUT SCH ×4 (06:21→21:00)
[2019-01-30 07:21] LABS: BG BASE EXCESS -4.3 mmol/L (-2.0-2.0); BG CARBOXYHEMOGLOBIN 0.2 % (0.5-1.5); BG DEOXYHEMOGLOBIN 1.3 % (0.0-5.0); BG HCO3 ACT 18.4 mmol/L (22.0-26.0); BG METHEMOGLOBIN 0.3 % (0.0-1.5); BG OXYGEN SATURATION 98.7 % (92.0-98.5); BG OXYHEMOGLOBIN 98.2 % (94.0-97.0); BG PCO2 27.9 mmHg (35.0-45.0); BG PH 7.438 (7.350-7.450); BG PO2 150.2 mmHg (75.0-100.0); BG SAMPLE SITE RIGHT BRACHIAL; BG TIDAL VOLUME(mL) 500 mL; BG VENT MODE VENT - A/C; BG VENT RATE 16 set
[2019-01-30] MEDS: LEVETIRACETAM 500 MG in SODIUM CHLORIDE 0.9% 100 ML IV SCH (08:55)
[2019-01-30] MEDS: ENOXAPARIN 40MG/0.4ML SYR SUBCUT SCH (08:55)
[2019-01-30] MEDS: FAMOTIDINE 20MG/2ML VIAL IV SCH (08:56)
[2019-01-30] MEDS: PREDNISOLONE ACETATE 1% OPHTH DROPS 1ML LEFTEYE SCH ×4 (08:56→21:59)
[2019-01-30] MEDS: CINACALCET HCL 30MG TABLET PO SCH (09:00)
[2019-01-30] MEDS: ASPIRIN 325MG EC TABLET PO SCH (09:00)
[2019-01-30] MEDS: HYDRALAZINE HCL 50MG TABLET PO SCH ×2 (09:00→20:44)
[2019-01-30] MEDS: METHIMAZOLE 5MG TABLET PO SCH (09:00)
[2019-01-30 12:49] LABS: HEMATOCRIT. 40.6 % (36.0-48.0); HEMOGLOBIN. 12.8 g/dL (12.0-16.0); MEAN CORPUSCULAR HEMOGLOBIN 23.9 pg (28.0-32.0); MEAN CORPUSCULAR VOLUME 76.2 fL (81.0-99.0); PLATELET 106 x1000/uL (130-400); RED BLOOD CELL COUNT 5.33 mill/uL (4.2-5.4); RED CELL DISTRIBUTION WIDTH 19.5 % (11.6-14.6)
[2019-01-30 13:21] LABS: PLATELET ESTIMATE DECREASED
[2019-01-30] MEDS: MONTELUKAST SODIUM 10MG TABLET PO SCH (16:41)
[2019-01-30] MEDS: GABAPENTIN 300MG CAPSULE PO SCH (20:44)
[2019-01-30] MEDS: LORATADINE 10MG TABLET PO SCH (20:44)
[2019-01-30] MEDS: ATORVASTATIN CALCIUM 40MG TABLET PO SCH (20:44)
[2019-01-31] VITALS (102 sets, daily range): BP systolic 79–155; BP diastolic 41–92
[2019-01-31] MEDS: IPRATROPIUM/ALBUTEROL 0.5-3(2.5)MG/3ML NEB HHN SCH ×6 (00:27→21:08)
[2019-01-31] MEDS: METHYLPREDNISOLONE SOD SUCC 40 MG/ML VIAL IV SCH ×3 (03:23→21:51)
[2019-01-31] MEDS: PROPOFOL 10MG/ML 100ML 100 ML IV PRN ×3 (04:45→19:47)
[2019-01-31 05:30] LABS: HEMATOCRIT. 39.1 % (36.0-48.0); HEMOGLOBIN. 12.2 g/dL (12.0-16.0); MEAN CORPUSCULAR HEMOGLOBIN 23.7 pg (28.0-32.0); PLATELET 112 x1000/uL (130-400); RED BLOOD CELL COUNT 5.15 mill/uL (4.2-5.4)
[2019-01-31] MEDS: PIPERACILLIN/TAZ 2.25G PREMIX 50 ML IV SCH ×3 (06:41→22:33)
[2019-01-31] MEDS: CALCIUM ACETATE 667MG CAPSULE PO SCH ×3 (07:00→17:00)
[2019-01-31 07:50] LABS: NUCLEATED RED BLOOD CELLS 1 /100 WBC; PLATELET ESTIMATE DECREASED
[2019-01-31] MEDS ORDERED: LIDOCAINE HCL 1% 20ML VIAL (Pyxis) INJ ONE (08:23)
[2019-01-31] MEDS ORDERED: IODIXANOL 320MG/ML 100 ML BOTTLE IV ONE (08:23)
[2019-01-31 08:37] LABS: BG BASE EXCESS -3.6 mmol/L (-2.0-2.0); BG CARBOXYHEMOGLOBIN 0.2 % (0.5-1.5); BG DEOXYHEMOGLOBIN 0.8 % (0.0-5.0); BG FRACTION INSPIRED OXYGEN 60; BG HCO3 ACT 18.6 mmol/L (22.0-26.0); BG METHEMOGLOBIN 0.1 % (0.0-1.5); BG OXYGEN SATURATION 99.2 % (92.0-98.5); BG OXYHEMOGLOBIN 98.9 % (94.0-97.0); BG PCO2 26.3 mmHg (35.0-45.0); BG PH 7.468 (7.350-7.450); BG PO2 213.4 mmHg (75.0-100.0); BG SAMPLE SITE RIGHT RADIAL; BG TIDAL VOLUME(mL) 500 mL; BG TOTAL HEMOGLOBIN 12.8 g/dL (12.0-18.0); BG VENT MODE VENT - A/C; BG VENT RATE 16 set
[2019-01-31] MEDS: PREDNISOLONE ACETATE 1% OPHTH DROPS 1ML LEFTEYE SCH ×4 (08:44→21:52)
[2019-01-31] MEDS: HYDRALAZINE HCL 50MG TABLET PO SCH ×2 (08:44→21:00)
[2019-01-31] MEDS: FAMOTIDINE 20MG/2ML VIAL IV SCH (08:44)
[2019-01-31] MEDS: ENOXAPARIN 40MG/0.4ML SYR SUBCUT SCH (08:45)
[2019-01-31] MEDS: METHIMAZOLE 5MG TABLET PO SCH (08:45)
[2019-01-31] MEDS: ASPIRIN 325MG EC TABLET PO SCH (08:45)
[2019-01-31] MEDS: CINACALCET HCL 30MG TABLET PO SCH (08:45)
[2019-01-31] MEDS ORDERED: ATROPINE SULFATE 1MG/10ML SYR IV PRN (09:00)
[2019-01-31] MEDS ORDERED: ACETAMINOPHEN 325MG TABLET PO PRN (09:00)
[2019-01-31] MEDS: LEVETIRACETAM 500 MG in SODIUM CHLORIDE 0.9% 100 ML IV SCH (09:52)
[2019-01-31] MEDS: INSULIN LISPRO 100 UNITS/ML SUBCUT SCH ×3 (12:00→23:17)
[2019-01-31] MEDS: BLOOD SUGAR DIAGNOSTIC STRIP TEST SCH ×3 (12:26→23:13)
[2019-01-31] MEDS ORDERED: VANCOMYCIN 1 G PREMIX 200 ML IV SCH (14:00)
[2019-01-31] MEDS: MONTELUKAST SODIUM 10MG TABLET PO SCH (17:00)
[2019-01-31] MEDS: LORATADINE 10MG TABLET PO SCH (21:00)
[2019-01-31] MEDS: GABAPENTIN 300MG CAPSULE PO SCH (21:00)
[2019-01-31] MEDS: ATORVASTATIN CALCIUM 40MG TABLET PO SCH (21:00)
[2019-02-01] VITALS (79 sets, daily range): BP systolic 99–146; BP diastolic 51–86
[2019-02-01] MEDS: IPRATROPIUM/ALBUTEROL 0.5-3(2.5)MG/3ML NEB HHN SCH ×6 (00:45→20:40)
[2019-02-01] MEDS: PIPERACILLIN/TAZ 2.25G PREMIX 50 ML IV SCH ×3 (05:32→22:01)
[2019-02-01] MEDS: BLOOD SUGAR DIAGNOSTIC STRIP TEST SCH ×4 (05:37→23:37)
[2019-02-01] MEDS: INSULIN LISPRO 100 UNITS/ML SUBCUT SCH ×4 (05:37→23:38)
[2019-02-01 05:51] LABS: HEMATOCRIT. 38.9 % (36.0-48.0); HEMOGLOBIN. 12.3 g/dL (12.0-16.0); MEAN CORPUSCULAR VOLUME 75.9 fL (81.0-99.0); MEAN PLATELET VOLUME 9.2 fl (7.4-10.4); PLATELET 99 x1000/uL (130-400); RED BLOOD CELL COUNT 5.12 mill/uL (4.2-5.4); RED CELL DISTRIBUTION WIDTH 18.9 % (11.6-14.6)
[2019-02-01] MEDS: CALCIUM ACETATE 667MG CAPSULE PO SCH ×3 (06:26→17:53)
[2019-02-01] MEDS: PROPOFOL 10MG/ML 100ML 100 ML IV PRN (06:35)
[2019-02-01] MEDS: CINACALCET HCL 30MG TABLET PO SCH (09:00)
[2019-02-01] MEDS: LEVETIRACETAM 500 MG in SODIUM CHLORIDE 0.9% 100 ML IV SCH (09:34)
[2019-02-01] MEDS: METHIMAZOLE 5MG TABLET PO SCH (09:35)
[2019-02-01] MEDS: FAMOTIDINE 20MG/2ML VIAL IV SCH (09:35)
[2019-02-01] MEDS: METHYLPREDNISOLONE SOD SUCC 40 MG/ML VIAL IV SCH ×2 (09:35→20:58)
[2019-02-01] MEDS: PREDNISOLONE ACETATE 1% OPHTH DROPS 1ML LEFTEYE SCH ×4 (09:35→20:58)
[2019-02-01] MEDS: HYDRALAZINE HCL 50MG TABLET PO SCH ×2 (09:35→20:57)
[2019-02-01] MEDS: ASPIRIN 325MG EC TABLET PO SCH (09:35)
[2019-02-01] MEDS: ENOXAPARIN 40MG/0.4ML SYR SUBCUT SCH (09:36)
[2019-02-01] MEDS: FENTANYL CITRATE/PF 500 MCG in SODIUM CHLORIDE 0.9% 40 ML IV PRN (11:56)
[2019-02-01 12:16] LABS: PLATELET ESTIMATE SLIGHTLY DECREASED
[2019-02-01] MEDS: MONTELUKAST SODIUM 10MG TABLET PO SCH (17:53)
[2019-02-01] MEDS: GABAPENTIN 300MG CAPSULE PO SCH (20:57)
[2019-02-01] MEDS: ATORVASTATIN CALCIUM 40MG TABLET PO SCH (20:57)
[2019-02-01] MEDS: LORATADINE 10MG TABLET PO SCH (20:58)
[2019-02-02] VITALS (91 sets, daily range): BP systolic 92–145; BP diastolic 45–83
[2019-02-02] MEDS: IPRATROPIUM/ALBUTEROL 0.5-3(2.5)MG/3ML NEB HHN SCH ×6 (00:30→20:45)
[2019-02-02] MEDS: BLOOD SUGAR DIAGNOSTIC STRIP TEST SCH ×4 (05:23→23:26)
[2019-02-02] MEDS: INSULIN LISPRO 100 UNITS/ML SUBCUT SCH ×4 (05:23→23:57)
[2019-02-02] MEDS: FENTANYL CITRATE/PF 500 MCG in SODIUM CHLORIDE 0.9% 40 ML IV PRN (05:28)
[2019-02-02] MEDS: PIPERACILLIN/TAZ 2.25G PREMIX 50 ML IV SCH ×3 (05:28→21:02)
[2019-02-02] MEDS: CALCIUM ACETATE 667MG CAPSULE PO SCH ×3 (06:31→18:24)
[2019-02-02] MEDS: HYDRALAZINE HCL 50MG TABLET PO SCH ×2 (08:16→21:02)
[2019-02-02] MEDS: METHYLPREDNISOLONE SOD SUCC 40 MG/ML VIAL IV SCH ×2 (08:16→21:04)
[2019-02-02] MEDS: CINACALCET HCL 30MG TABLET PO SCH (08:17)
[2019-02-02] MEDS: ASPIRIN 325MG EC TABLET PO SCH (08:17)
[2019-02-02] MEDS: METHIMAZOLE 5MG TABLET PO SCH (08:17)
[2019-02-02] MEDS: PREDNISOLONE ACETATE 1% OPHTH DROPS 1ML LEFTEYE SCH ×4 (08:59→21:02)
[2019-02-02] MEDS: FAMOTIDINE 20MG/2ML VIAL IV SCH (08:59)
[2019-02-02] MEDS: LEVETIRACETAM 500 MG in SODIUM CHLORIDE 0.9% 100 ML IV SCH (09:34)
[2019-02-02 12:01] LABS: HEMATOCRIT 38.1 % (36.0-48.0); HEMOGLOBIN 11.8 g/dL (12.0-16.0); MEAN CORPUSCULAR HEMOGLOBIN 23.8 pg (28.0-32.0); MEAN CORPUSCULAR VOLUME 77.1 fL (81.0-99.0); RED BLOOD CELL COUNT 4.95 mill/uL (4.2-5.4); RED CELL DISTRIBUTION WIDTH 19.5 % (11.6-14.6)
[2019-02-02 12:06] LABS: CHLORIDE 95 mEq/L (98-107)
[2019-02-02 12:20] LABS: PHOSPHORUS 8.1 mg/dL (2.5-4.9)
[2019-02-02 12:35] LABS: PLATELET 86 x1000/uL (130-400)
[2019-02-02 15:41] LABS: BG BASE EXCESS 0.8 mmol/L (-2.0-2.0); BG CARBOXYHEMOGLOBIN 1.2 % (0.5-1.5); BG FRACTION INSPIRED OXYGEN 40; BG HCO3 ACT 26.2 mmol/L (22.0-26.0); BG METHEMOGLOBIN 0.5 % (0.0-1.5); BG OXYHEMOGLOBIN 96.3 % (94.0-97.0); BG PH 7.383 (7.350-7.450); BG PO2 118.1 mmHg (75.0-100.0); BG PRESSURE SUPPORT 8; BG SAMPLE SITE RIGHT RADIAL; BG TOTAL HEMOGLOBIN 13.8 g/dL (12.0-18.0); BG VENT MODE VENT - CPAP
[2019-02-02] MEDS ORDERED: VANCOMYCIN 1 G PREMIX 200 ML IV NR (16:00)
[2019-02-02] MEDS: MONTELUKAST SODIUM 10MG TABLET PO SCH (18:24)
[2019-02-02] MEDS: GABAPENTIN 300MG CAPSULE PO SCH (21:02)
[2019-02-02] MEDS: LORATADINE 10MG TABLET PO SCH (21:04)
[2019-02-02] MEDS: ATORVASTATIN CALCIUM 40MG TABLET PO SCH (21:04)
[2019-02-03] VITALS (92 sets, daily range): BP systolic 86–140; BP diastolic 35–78
[2019-02-03] MEDS: IPRATROPIUM/ALBUTEROL 0.5-3(2.5)MG/3ML NEB HHN SCH ×6 (00:21→20:24)
[2019-02-03] MEDS: BLOOD SUGAR DIAGNOSTIC STRIP TEST SCH ×2 (05:57→12:00)
[2019-02-03] MEDS: CALCIUM ACETATE 667MG CAPSULE PO SCH ×3 (05:58→16:58)
[2019-02-03] MEDS: INSULIN LISPRO 100 UNITS/ML SUBCUT SCH ×2 (05:59→12:00)
[2019-02-03] MEDS: PIPERACILLIN/TAZ 2.25G PREMIX 50 ML IV SCH ×3 (06:05→22:17)
[2019-02-03] MEDS: HYDRALAZINE HCL 50MG TABLET PO SCH ×2 (09:00→21:00)
[2019-02-03] MEDS: FAMOTIDINE 20MG/2ML VIAL IV SCH (09:00)
[2019-02-03] MEDS: METHIMAZOLE 5MG TABLET PO SCH (09:00)
[2019-02-03] MEDS: CINACALCET HCL 30MG TABLET PO SCH (09:00)
[2019-02-03] MEDS: METHYLPREDNISOLONE SOD SUCC 40 MG/ML VIAL IV SCH ×2 (09:42→22:17)
[2019-02-03] MEDS: LEVETIRACETAM 500 MG in SODIUM CHLORIDE 0.9% 100 ML IV SCH (09:43)
[2019-02-03] MEDS: PREDNISOLONE ACETATE 1% OPHTH DROPS 1ML LEFTEYE SCH ×4 (09:44→21:00)
[2019-02-03 10:46] LABS: HEMATOCRIT. 38.9 % (36.0-48.0); HEMOGLOBIN. 11.8 g/dL (12.0-16.0); MEAN CORPUSCULAR HEMOGLOBIN 23.8 pg (28.0-32.0); MEAN CORPUSCULAR VOLUME 78.5 fL (81.0-99.0); MEAN PLATELET VOLUME 9.5 fl (7.4-10.4); PLATELET 138 x1000/uL (130-400); RED BLOOD CELL COUNT 4.95 mill/uL (4.2-5.4)
[2019-02-03 10:53] LABS: PARTIAL THROMBOPLASTIN TIME 25.4 sec (23.4-31.0); PROTHROMBIN TIME 10.6 sec (9.6-11.0)
[2019-02-03 11:11] LABS: PHOSPHORUS 7.7 mg/dL (2.5-4.9)
[2019-02-03 11:12] LABS: NUCLEATED RED BLOOD CELLS 1 /100 WBC; PLATELET ESTIMATE NORMAL
[2019-02-03] MEDS ORDERED: IOHEXOL-300 100 ML BOTTLE ONE (12:35)
[2019-02-03] MEDS ORDERED: CEFAZOLIN 1000MG PREMIX 50 ML IV ONE ×2 (12:40→13:00)
[2019-02-03] MEDS ORDERED: LIDOCAINE HCL 1% 20ML VIAL (Pyxis) INJ ONE (12:54)
[2019-02-03] MEDS ORDERED: DIPHENHYDRAMINE 50MG/ML VIAL ONE (13:24)
[2019-02-03] MEDS ORDERED: FENTANYL CITRATE/PF 50MCG/ML 2ML VIAL ONE (13:24)
[2019-02-03] MEDS ORDERED: GENTAMICIN SULF 40MG/ML 2ML VIAL ONE (14:49)
[2019-02-03] MEDS ORDERED: SODIUM CHLORIDE 0.9% 1000ML BAG (SEPSIS BOLUS) IV ONE (16:15)
[2019-02-03] MEDS ORDERED: SODIUM CHLORIDE 0.9% 500ML IV NR (16:45)
[2019-02-03] MEDS: MONTELUKAST SODIUM 10MG TABLET PO SCH (16:58)
[2019-02-03] MEDS: PHENYLEPHRINE 20 MG in DEXT 5% WATER 248 ML IV PRN ×2 (17:30→22:17)
[2019-02-03] MEDS: GABAPENTIN 300MG CAPSULE PO SCH (22:17)
[2019-02-03] MEDS: ATORVASTATIN CALCIUM 40MG TABLET PO SCH (22:17)
[2019-02-03] MEDS: LORATADINE 10MG TABLET PO SCH (22:17)
[2019-02-04] VITALS (90 sets, daily range): BP systolic 68–138; BP diastolic 33–77
[2019-02-04] MEDS: IPRATROPIUM/ALBUTEROL 0.5-3(2.5)MG/3ML NEB HHN SCH ×6 (00:11→20:33)
[2019-02-04] MEDS: BLOOD SUGAR DIAGNOSTIC STRIP TEST SCH ×5 (00:21→23:52)
[2019-02-04] MEDS: INSULIN LISPRO 100 UNITS/ML SUBCUT SCH ×5 (05:11→23:52)
[2019-02-04 05:23] LABS: HEMOGLOBIN. 11.1 g/dL (12.0-16.0); MEAN CORPUSCULAR HEMOGLOBIN 24.1 pg (28.0-32.0); MEAN CORPUSCULAR VOLUME 76.2 fL (81.0-99.0); MEAN PLATELET VOLUME 9.2 fl (7.4-10.4); PLATELET 192 x1000/uL (130-400); RED BLOOD CELL COUNT 4.59 mill/uL (4.2-5.4); RED CELL DISTRIBUTION WIDTH 19.6 % (11.6-14.6)
[2019-02-04] MEDS: PIPERACILLIN/TAZ 2.25G PREMIX 50 ML IV SCH ×3 (06:26→20:56)
[2019-02-04] MEDS: CALCIUM ACETATE 667MG CAPSULE PO SCH ×3 (06:26→17:00)
[2019-02-04 07:32] LABS: PLATELET ESTIMATE NORMAL
[2019-02-04] MEDS: FAMOTIDINE 20MG/2ML VIAL IV SCH (08:48)
[2019-02-04] MEDS: CINACALCET HCL 30MG TABLET PO SCH (08:48)
[2019-02-04] MEDS: METHIMAZOLE 5MG TABLET PO SCH (08:48)
[2019-02-04] MEDS: METHYLPREDNISOLONE SOD SUCC 40 MG/ML VIAL IV SCH ×2 (08:48→15:02)
[2019-02-04] MEDS: LEVETIRACETAM 500 MG in SODIUM CHLORIDE 0.9% 100 ML IV SCH ×2 (08:48→12:13)
[2019-02-04] MEDS: HYDRALAZINE HCL 50MG TABLET PO SCH ×2 (08:48→20:50)
[2019-02-04] MEDS: PHENYLEPHRINE 20 MG in DEXT 5% WATER 248 ML IV PRN ×2 (08:54→22:09)
[2019-02-04] MEDS: PREDNISOLONE ACETATE 1% OPHTH DROPS 1ML LEFTEYE SCH ×4 (08:54→20:55)
[2019-02-04] MEDS: ASPIRIN 325MG EC TABLET PO SCH (09:00)
[2019-02-04 12:36] LABS: BG BASE EXCESS 1.3 mmol/L (-2.0-2.0); BG CARBOXYHEMOGLOBIN 0.7 % (0.5-1.5); BG CPAP (cmH2O) 0 cm(H2O); BG DEOXYHEMOGLOBIN 4.4 % (0.0-5.0); BG HCO3 ACT 26.5 mmol/L (22.0-26.0); BG METHEMOGLOBIN 0.3 % (0.0-1.5); BG OXYGEN SATURATION 95.6 % (92.0-98.5); BG OXYHEMOGLOBIN 94.6 % (94.0-97.0); BG PH 7.397 (7.350-7.450); BG PO2 84.9 mmHg (75.0-100.0); BG SAMPLE SITE RIGHT RADIAL; BG VENT MODE VENT - CPAP
[2019-02-04] MEDS ORDERED: RACEPINEPHRINE 2.25% 0.5ML NEB VIAL HHN NR (13:15)
[2019-02-04] MEDS: MONTELUKAST SODIUM 10MG TABLET PO SCH (17:00)
[2019-02-04] MEDS: LORATADINE 10MG TABLET PO SCH (20:51)
[2019-02-04] MEDS: GABAPENTIN 300MG CAPSULE PO SCH (20:51)
[2019-02-04] MEDS: ATORVASTATIN CALCIUM 40MG TABLET PO SCH (20:51)
[2019-02-05] VITALS (90 sets, daily range): BP systolic 74–157; BP diastolic 36–86
[2019-02-05] MEDS: IPRATROPIUM/ALBUTEROL 0.5-3(2.5)MG/3ML NEB HHN SCH ×6 (00:59→20:50)
[2019-02-05] MEDS: PHENYLEPHRINE 40 MG in DEXT 5% WATER 246 ML IV PRN ×3 (02:28→19:42)
[2019-02-05] MEDS: INSULIN LISPRO 100 UNITS/ML SUBCUT SCH ×3 (06:00→17:17)
[2019-02-05] MEDS: BLOOD SUGAR DIAGNOSTIC STRIP TEST SCH ×4 (06:02→23:24)
[2019-02-05] MEDS: CALCIUM ACETATE 667MG CAPSULE PO SCH ×3 (06:02→17:16)
[2019-02-05] MEDS: PIPERACILLIN/TAZ 2.25G PREMIX 50 ML IV SCH ×2 (06:13→14:43)
[2019-02-05 07:49] LABS: BG BASE EXCESS 0.1 mmol/L (-2.0-2.0); BG BILEVEL POS AIRWAY PRESSURE 15/5; BG CARBOXYHEMOGLOBIN 0.5 % (0.5-1.5); BG DEOXYHEMOGLOBIN 1.4 % (0.0-5.0); BG FRACTION INSPIRED OXYGEN 40; BG HCO3 ACT 27.3 mmol/L (22.0-26.0); BG METHEMOGLOBIN 0.2 % (0.0-1.5); BG OXYGEN SATURATION 98.6 % (92.0-98.5); BG OXYHEMOGLOBIN 97.9 % (94.0-97.0); BG PCO2 55.4 mmHg (35.0-45.0); BG PO2 141.4 mmHg (75.0-100.0); BG SAMPLE SITE RIGHT BRACHIAL; BG TOTAL HEMOGLOBIN 12.4 g/dL (12.0-18.0); BG VENT MODE MASK - BIPAP
[2019-02-05] MEDS ORDERED: ONDANSETRON HCL 4MG/2ML INJ IV PRN (08:00)
[2019-02-05] MEDS ORDERED: METHYLPREDNISOLONE SOD SUCC 40 MG/ML VIAL IV SCH (09:00)
[2019-02-05] MEDS: HYDRALAZINE HCL 50MG TABLET PO SCH ×2 (09:00→20:53)
[2019-02-05] MEDS: PREDNISOLONE ACETATE 1% OPHTH DROPS 1ML LEFTEYE SCH ×4 (09:10→20:58)
[2019-02-05] MEDS: LEVETIRACETAM 500 MG in SODIUM CHLORIDE 0.9% 100 ML IV SCH (09:11)
[2019-02-05] MEDS: FAMOTIDINE 20MG/2ML VIAL IV SCH (09:11)
[2019-02-05] MEDS: METHYLPREDNISOLONE SOD SUCC 40 MG/ML VIAL IV SCH (09:11)
[2019-02-05] MEDS: ASPIRIN 81MG EC TABLET PO SCH (11:47)
[2019-02-05] MEDS: CINACALCET HCL 30MG TABLET PO SCH (11:47)
[2019-02-05] MEDS: METHIMAZOLE 5MG TABLET PO SCH (11:47)
[2019-02-05] MEDS: ENOXAPARIN 40MG/0.4ML SYR SUBCUT SCH (11:48)
[2019-02-05] MEDS: THIAMINE HCL 100MG TABLET PO SCH (11:50)
[2019-02-05 15:37] LABS: CREATINE KINASE MB FRACTION 1.3 ng/mL (0.5-3.6)
[2019-02-05] MEDS: MONTELUKAST SODIUM 10MG TABLET PO SCH (17:16)
[2019-02-05] MEDS: ATORVASTATIN CALCIUM 40MG TABLET PO SCH (20:57)
[2019-02-05] MEDS: LORATADINE 10MG TABLET PO SCH (20:57)
[2019-02-05] MEDS: GABAPENTIN 300MG CAPSULE PO SCH (20:57)
[2019-02-05 23:32] LABS: CREATINE KINASE MB FRACTION 1.2 ng/mL (0.5-3.6)
[2019-02-06] VITALS (89 sets, daily range): BP systolic 85–147; BP diastolic 41–79
[2019-02-06] MEDS: IPRATROPIUM/ALBUTEROL 0.5-3(2.5)MG/3ML NEB HHN SCH ×6 (01:02→20:23)
[2019-02-06 04:45] LABS: HEMOGLOBIN. 11.4 g/dL (12.0-16.0); MEAN CORPUSCULAR HEMOGLOBIN 24.2 pg (28.0-32.0); MEAN CORPUSCULAR VOLUME 78.4 fL (81.0-99.0); MEAN PLATELET VOLUME 7.9 fl (7.4-10.4); PLATELET 196 x1000/uL (130-400); RED BLOOD CELL COUNT 4.72 mill/uL (4.2-5.4); RED CELL DISTRIBUTION WIDTH 19.7 % (11.6-14.6)
[2019-02-06] MEDS: PHENYLEPHRINE 40 MG in DEXT 5% WATER 246 ML IV PRN ×3 (04:55→18:45)
[2019-02-06] MEDS: BLOOD SUGAR DIAGNOSTIC STRIP TEST SCH ×3 (05:01→18:15)
[2019-02-06] MEDS: INSULIN LISPRO 100 UNITS/ML SUBCUT SCH ×4 (05:04→18:15)
[2019-02-06] MEDS: CALCIUM ACETATE 667MG CAPSULE PO SCH ×3 (06:24→18:15)
[2019-02-06 08:09] LABS: BG BASE EXCESS -2.4 mmol/L (-2.0-2.0); BG CARBOXYHEMOGLOBIN 0.3 % (0.5-1.5); BG FRACTION INSPIRED OXYGEN 30; BG HCO3 ACT 24.8 mmol/L (22.0-26.0); BG METHEMOGLOBIN 0.5 % (0.0-1.5); BG OXYHEMOGLOBIN 96.2 % (94.0-97.0); BG PCO2 53.6 mmHg (35.0-45.0); BG PH 7.284 (7.350-7.450); BG PO2 115.3 mmHg (75.0-100.0); BG SAMPLE SITE RIGHT BRACHIAL; BG TOTAL HEMOGLOBIN 12.1 g/dL (12.0-18.0); BG VENT MODE NASAL CANNULA
[2019-02-06] MEDS: FAMOTIDINE 20MG/2ML VIAL IV SCH (09:00)
[2019-02-06] MEDS: HYDRALAZINE HCL 50MG TABLET PO SCH ×2 (09:00→21:47)
[2019-02-06] MEDS: METHYLPREDNISOLONE SOD SUCC 40 MG/ML VIAL IV SCH (09:00)
[2019-02-06] MEDS: LEVETIRACETAM 500 MG in SODIUM CHLORIDE 0.9% 100 ML IV SCH (09:00)
[2019-02-06] MEDS: PREDNISOLONE ACETATE 1% OPHTH DROPS 1ML LEFTEYE SCH ×4 (09:00→21:47)
[2019-02-06] MEDS: ENOXAPARIN 40MG/0.4ML SYR SUBCUT SCH (09:45)
[2019-02-06] MEDS: CINACALCET HCL 30MG TABLET PO SCH (09:45)
[2019-02-06] MEDS: THIAMINE HCL 100MG TABLET PO SCH (09:45)
[2019-02-06] MEDS: ASPIRIN 81MG EC TABLET PO SCH (09:45)
[2019-02-06 14:22] LABS: PLATELET ESTIMATE NORMAL
[2019-02-06] MEDS: METHIMAZOLE 5MG TABLET PO SCH (15:03)
[2019-02-06] MEDS: MONTELUKAST SODIUM 10MG TABLET PO SCH (18:14)
[2019-02-06] MEDS: LORATADINE 10MG TABLET PO SCH (21:46)
[2019-02-06] MEDS: GABAPENTIN 300MG CAPSULE PO SCH (21:46)
[2019-02-06] MEDS: ATORVASTATIN CALCIUM 40MG TABLET PO SCH (21:46)
[2019-02-07] VITALS (95 sets, daily range): BP systolic 76–196; BP diastolic 32–137
[2019-02-07] MEDS: IPRATROPIUM/ALBUTEROL 0.5-3(2.5)MG/3ML NEB HHN SCH ×6 (00:19→20:01)
[2019-02-07] MEDS: PHENYLEPHRINE 40 MG in DEXT 5% WATER 246 ML IV PRN ×3 (02:56→17:44)
[2019-02-07] MEDS: BLOOD SUGAR DIAGNOSTIC STRIP TEST SCH ×5 (05:22→23:47)
[2019-02-07] MEDS: INSULIN LISPRO 100 UNITS/ML SUBCUT SCH ×5 (05:23→23:47)
[2019-02-07 05:48] LABS: HEMATOCRIT. 37.6 % (36.0-48.0); HEMOGLOBIN. 11.5 g/dL (12.0-16.0); MEAN CORPUSCULAR VOLUME 78.1 fL (81.0-99.0); PLATELET 182 x1000/uL (130-400); RED BLOOD CELL COUNT 4.81 mill/uL (4.2-5.4)
[2019-02-07] MEDS: LEVETIRACETAM 500 MG in SODIUM CHLORIDE 0.9% 100 ML IV SCH (08:52)
[2019-02-07] MEDS: FAMOTIDINE 20MG/2ML VIAL IV SCH (08:52)
[2019-02-07] MEDS: PREDNISOLONE ACETATE 1% OPHTH DROPS 1ML LEFTEYE SCH ×4 (08:52→20:28)
[2019-02-07] MEDS: CALCIUM ACETATE 667MG CAPSULE PO SCH ×3 (08:53→17:41)
[2019-02-07] MEDS: THIAMINE HCL 100MG TABLET PO SCH (08:53)
[2019-02-07] MEDS: ASPIRIN 81MG EC TABLET PO SCH (08:53)
[2019-02-07] MEDS: METHYLPREDNISOLONE SOD SUCC 40 MG/ML VIAL IV SCH (08:53)
[2019-02-07] MEDS: CINACALCET HCL 30MG TABLET PO SCH (08:53)
[2019-02-07] MEDS: METHIMAZOLE 5MG TABLET PO SCH (08:54)
[2019-02-07] MEDS: ENOXAPARIN 40MG/0.4ML SYR SUBCUT SCH (08:55)
[2019-02-07] MEDS: HYDRALAZINE HCL 50MG TABLET PO SCH (09:00)
[2019-02-07 09:06] LABS: NUCLEATED RED BLOOD CELLS 1 /100 WBC
[2019-02-07 09:08] LABS: PLATELET ESTIMATE NORMAL
[2019-02-07] MEDS: MIDODRINE HCL 5MG TABLET PO SCH ×3 (10:25→17:41)
[2019-02-07] MEDS: ACETYLCYSTEINE 100MG/ML 10% VIAL 4ML INH SCH (15:15)
[2019-02-07] MEDS: MONTELUKAST SODIUM 10MG TABLET PO SCH (17:41)
[2019-02-07] MEDS: ATORVASTATIN CALCIUM 40MG TABLET PO SCH (20:28)
[2019-02-07] MEDS: LORATADINE 10MG TABLET PO SCH (20:28)
[2019-02-07] MEDS: GABAPENTIN 300MG CAPSULE PO SCH (20:28)
[2019-02-08] VITALS (97 sets, daily range): BP systolic 77–135; BP diastolic 42–70
[2019-02-08] MEDS: ACETYLCYSTEINE 100MG/ML 10% VIAL 4ML INH SCH ×4 (01:20→16:02)
[2019-02-08] MEDS: IPRATROPIUM/ALBUTEROL 0.5-3(2.5)MG/3ML NEB HHN SCH ×6 (01:20→20:28)
[2019-02-08 05:23] LABS: BASOPHILS % 0.3 % (0.0-2.0); EOSINOPHILS % 3.7 % (0.0-5.0); HEMATOCRIT. 34.7 % (36.0-48.0); HEMOGLOBIN. 10.6 g/dL (12.0-16.0); LYMPHOCYTES % 12.5 % (20.0-50.0); MEAN CORPUSCULAR HEMOGLOBIN 24.3 pg (28.0-32.0); MEAN CORPUSCULAR VOLUME 79.2 fL (81.0-99.0); MEAN PLATELET VOLUME 8.1 fl (7.4-10.4); MONOCYTES % 10.7 % (2.0-8.0); NEUTROPHILS % 72.8 % (40.0-76.0); PLATELET 140 x1000/uL (130-400); RED BLOOD CELL COUNT 4.38 mill/uL (4.2-5.4); RED CELL DISTRIBUTION WIDTH 19.7 % (11.6-14.6)
[2019-02-08] MEDS: INSULIN LISPRO 100 UNITS/ML SUBCUT SCH ×4 (06:00→23:25)
[2019-02-08] MEDS: BLOOD SUGAR DIAGNOSTIC STRIP TEST SCH ×4 (06:35→23:25)
[2019-02-08] MEDS: CALCIUM ACETATE 667MG CAPSULE PO SCH ×3 (06:38→17:42)
[2019-02-08] MEDS: LEVETIRACETAM 500 MG in SODIUM CHLORIDE 0.9% 100 ML IV SCH (08:57)
[2019-02-08] MEDS: FAMOTIDINE 20MG/2ML VIAL IV SCH (08:57)
[2019-02-08] MEDS: METHYLPREDNISOLONE SOD SUCC 40 MG/ML VIAL IV SCH (08:57)
[2019-02-08] MEDS: ASPIRIN 81MG EC TABLET PO SCH (08:58)
[2019-02-08] MEDS: METHIMAZOLE 5MG TABLET PO SCH (08:58)
[2019-02-08] MEDS: ENOXAPARIN 40MG/0.4ML SYR SUBCUT SCH (08:58)
[2019-02-08] MEDS: THIAMINE HCL 100MG TABLET PO SCH (08:58)
[2019-02-08] MEDS: PREDNISOLONE ACETATE 1% OPHTH DROPS 1ML LEFTEYE SCH ×4 (08:58→20:32)
[2019-02-08] MEDS: CINACALCET HCL 30MG TABLET PO SCH (08:58)
[2019-02-08] MEDS: MIDODRINE HCL 5MG TABLET PO SCH ×3 (08:58→17:43)
[2019-02-08] MEDS: MONTELUKAST SODIUM 10MG TABLET PO SCH (17:42)
[2019-02-08] MEDS: GABAPENTIN 300MG CAPSULE PO SCH (20:32)
[2019-02-08] MEDS: LORATADINE 10MG TABLET PO SCH (20:32)
[2019-02-08] MEDS: ATORVASTATIN CALCIUM 40MG TABLET PO SCH (20:32)
[2019-02-09] VITALS (52 sets, daily range): BP systolic 88–141; BP diastolic 47–81
[2019-02-09] MEDS: ACETYLCYSTEINE 100MG/ML 10% VIAL 4ML INH SCH ×3 (00:02→15:40)
[2019-02-09] MEDS: IPRATROPIUM/ALBUTEROL 0.5-3(2.5)MG/3ML NEB HHN SCH ×6 (00:03→20:45)
[2019-02-09] MEDS: INSULIN LISPRO 100 UNITS/ML SUBCUT SCH ×3 (05:50→18:05)
[2019-02-09] MEDS: BLOOD SUGAR DIAGNOSTIC STRIP TEST SCH ×3 (05:50→18:06)
[2019-02-09] MEDS: CALCIUM ACETATE 667MG CAPSULE PO SCH ×3 (06:09→18:03)
[2019-02-09 08:46] LABS: BG BASE EXCESS -3.1 mmol/L (-2.0-2.0); BG CARBOXYHEMOGLOBIN 0.3 % (0.5-1.5); BG DEOXYHEMOGLOBIN 2.3 % (0.0-5.0); BG FRACTION INSPIRED OXYGEN 28; BG HCO3 ACT 24.3 mmol/L (22.0-26.0); BG METHEMOGLOBIN 0.2 % (0.0-1.5); BG OXYGEN SATURATION 97.7 % (92.0-98.5); BG OXYHEMOGLOBIN 97.2 % (94.0-97.0); BG PCO2 54.2 mmHg (35.0-45.0); BG PH 7.269 (7.350-7.450); BG PO2 115.2 mmHg (75.0-100.0); BG SAMPLE SITE RIGHT BRACHIAL; BG TOTAL HEMOGLOBIN 11.4 g/dL (12.0-18.0); BG VENT MODE NASAL CANNULA
[2019-02-09] MEDS: LEVETIRACETAM 500 MG in SODIUM CHLORIDE 0.9% 100 ML IV SCH (09:26)
[2019-02-09] MEDS: PREDNISOLONE ACETATE 1% OPHTH DROPS 1ML LEFTEYE SCH ×4 (09:26→20:59)
[2019-02-09] MEDS: ENOXAPARIN 40MG/0.4ML SYR SUBCUT SCH (09:28)
[2019-02-09] MEDS: FAMOTIDINE 20MG/2ML VIAL IV SCH (09:29)
[2019-02-09] MEDS: METHYLPREDNISOLONE SOD SUCC 40 MG/ML VIAL IV SCH (09:29)
[2019-02-09] MEDS: MIDODRINE HCL 5MG TABLET PO SCH ×3 (09:30→18:03)
[2019-02-09] MEDS: CINACALCET HCL 30MG TABLET PO SCH (09:30)
[2019-02-09] MEDS: THIAMINE HCL 100MG TABLET PO SCH (09:31)
[2019-02-09] MEDS: METHIMAZOLE 5MG TABLET PO SCH (09:31)
[2019-02-09] MEDS: ASPIRIN 81MG EC TABLET PO SCH (09:31)
[2019-02-09] MEDS: MONTELUKAST SODIUM 10MG TABLET PO SCH (18:03)
[2019-02-09] MEDS: ATORVASTATIN CALCIUM 40MG TABLET PO SCH (20:59)
[2019-02-09] MEDS: LORATADINE 10MG TABLET PO SCH (20:59)
[2019-02-09] MEDS: GABAPENTIN 300MG CAPSULE PO SCH (20:59)
[2019-02-10] VITALS (14 sets, daily range): BP systolic 103–180; BP diastolic 52–98
[2019-02-10] MEDS: IPRATROPIUM/ALBUTEROL 0.5-3(2.5)MG/3ML NEB HHN SCH ×6 (00:14→20:53)
[2019-02-10] MEDS: INSULIN LISPRO 100 UNITS/ML SUBCUT SCH ×4 (06:00→17:34)
[2019-02-10] MEDS: BLOOD SUGAR DIAGNOSTIC STRIP TEST SCH ×4 (06:05→17:25)
[2019-02-10] MEDS: CALCIUM ACETATE 667MG CAPSULE PO SCH ×3 (06:29→17:24)
[2019-02-10] MEDS: METHIMAZOLE 5MG TABLET PO SCH (08:23)
[2019-02-10] MEDS: ASPIRIN 81MG EC TABLET PO SCH (08:23)
[2019-02-10] MEDS: PREDNISONE 20MG TABLET PO SCH ×2 (08:24→17:24)
[2019-02-10] MEDS: CINACALCET HCL 30MG TABLET PO SCH (08:24)
[2019-02-10] MEDS: FAMOTIDINE 20MG/2ML VIAL IV SCH (08:24)
[2019-02-10] MEDS: MIDODRINE HCL 5MG TABLET PO SCH ×3 (08:24→17:00)
[2019-02-10] MEDS: THIAMINE HCL 100MG TABLET PO SCH (08:24)
[2019-02-10] MEDS: ENOXAPARIN 40MG/0.4ML SYR SUBCUT SCH (08:25)
[2019-02-10] MEDS: PREDNISOLONE ACETATE 1% OPHTH DROPS 1ML LEFTEYE SCH ×4 (08:25→21:07)
[2019-02-10] MEDS: LEVETIRACETAM 500 MG in SODIUM CHLORIDE 0.9% 100 ML IV SCH (09:29)
[2019-02-10] MEDS: ACETYLCYSTEINE 100MG/ML 10% VIAL 4ML INH SCH ×2 (09:35→17:39)
[2019-02-10 11:41] LABS: BG BASE EXCESS -6.7 mmol/L (-2.0-2.0); BG CARBOXYHEMOGLOBIN 0.6 % (0.5-1.5); BG DEOXYHEMOGLOBIN 9.4 % (0.0-5.0); BG HCO3 ACT 20.1 mmol/L (22.0-26.0); BG METHEMOGLOBIN 0.3 % (0.0-1.5); BG OXYGEN SATURATION 90.5 % (92.0-98.5); BG OXYHEMOGLOBIN 89.7 % (94.0-97.0); BG PCO2 45.6 mmHg (35.0-45.0); BG PH 7.262 (7.350-7.450); BG PO2 66.1 mmHg (75.0-100.0); BG SAMPLE SITE RIGHT RADIAL; BG TOTAL HEMOGLOBIN 11.6 g/dL (12.0-18.0); BG VENT MODE ROOM AIR
[2019-02-10] MEDS: MONTELUKAST SODIUM 10MG TABLET PO SCH (17:24)
[2019-02-10] MEDS: GABAPENTIN 300MG CAPSULE PO SCH (21:06)
[2019-02-10] MEDS: LORATADINE 10MG TABLET PO SCH (21:06)
[2019-02-10] MEDS: ATORVASTATIN CALCIUM 40MG TABLET PO SCH (21:06)
[2019-02-10] MEDS: CLONIDINE 0.1MG TABLET PO PRN (22:14)
[2019-02-11] VITALS (18 sets, daily range): BP systolic 97–136; BP diastolic 52–96
[2019-02-11] MEDS: BLOOD SUGAR DIAGNOSTIC STRIP TEST SCH ×4 (00:14→17:41)
[2019-02-11] MEDS: INSULIN LISPRO 100 UNITS/ML SUBCUT SCH ×4 (00:16→17:49)
[2019-02-11] MEDS: IPRATROPIUM/ALBUTEROL 0.5-3(2.5)MG/3ML NEB HHN SCH ×6 (00:38→20:32)
[2019-02-11] MEDS: ACETYLCYSTEINE 100MG/ML 10% VIAL 4ML INH SCH ×3 (00:39→15:07)
[2019-02-11] MEDS: THIAMINE HCL 100MG TABLET PO SCH (08:56)
[2019-02-11] MEDS: CALCIUM ACETATE 667MG CAPSULE PO SCH ×3 (08:56→17:20)
[2019-02-11] MEDS: ASPIRIN 81MG EC TABLET PO SCH (08:56)
[2019-02-11] MEDS: MIDODRINE HCL 5MG TABLET PO SCH ×3 (08:57→21:04)
[2019-02-11] MEDS: METHIMAZOLE 5MG TABLET PO SCH (08:57)
[2019-02-11] MEDS: PREDNISONE 20MG TABLET PO SCH ×2 (08:57→17:00)
[2019-02-11] MEDS: ENOXAPARIN 40MG/0.4ML SYR SUBCUT SCH (08:58)
[2019-02-11] MEDS: LEVETIRACETAM 500 MG in SODIUM CHLORIDE 0.9% 100 ML IV SCH (08:58)
[2019-02-11] MEDS: CINACALCET HCL 30MG TABLET PO SCH (08:59)
[2019-02-11] MEDS: PREDNISOLONE ACETATE 1% OPHTH DROPS 1ML LEFTEYE SCH ×4 (09:12→21:05)
[2019-02-11] MEDS: FAMOTIDINE 20MG/2ML VIAL IV SCH (09:12)
[2019-02-11] MEDS: MONTELUKAST SODIUM 10MG TABLET PO SCH (17:00)
[2019-02-11] MEDS: GABAPENTIN 300MG CAPSULE PO SCH (21:02)
[2019-02-11] MEDS: ATORVASTATIN CALCIUM 40MG TABLET PO SCH (21:02)
[2019-02-11] MEDS: LORATADINE 10MG TABLET PO SCH (21:02)
[2019-02-12] VITALS (16 sets, daily range): BP systolic 94–135; BP diastolic 53–90
[2019-02-12] MEDS: IPRATROPIUM/ALBUTEROL 0.5-3(2.5)MG/3ML NEB HHN SCH ×6 (00:25→20:41)
[2019-02-12] MEDS: ACETYLCYSTEINE 100MG/ML 10% VIAL 4ML INH SCH ×3 (00:26→14:00)
[2019-02-12] MEDS: BLOOD SUGAR DIAGNOSTIC STRIP TEST SCH ×5 (00:41→21:26)
[2019-02-12] MEDS: INSULIN LISPRO 100 UNITS/ML SUBCUT SCH ×5 (00:46→21:24)
[2019-02-12] MEDS: MIDODRINE HCL 5MG TABLET PO SCH ×3 (05:17→21:25)
[2019-02-12] MEDS: PREDNISONE 20MG TABLET PO SCH ×2 (08:13→17:25)
[2019-02-12] MEDS: THIAMINE HCL 100MG TABLET PO SCH (08:13)
[2019-02-12] MEDS: CALCIUM ACETATE 667MG CAPSULE PO SCH ×3 (08:13→17:25)
[2019-02-12] MEDS: FAMOTIDINE 20MG/2ML VIAL IV SCH (08:14)
[2019-02-12] MEDS: ASPIRIN 81MG EC TABLET PO SCH (08:14)
[2019-02-12] MEDS: METHIMAZOLE 5MG TABLET PO SCH (08:14)
[2019-02-12] MEDS: PREDNISOLONE ACETATE 1% OPHTH DROPS 1ML LEFTEYE SCH ×4 (08:14→21:26)
[2019-02-12] MEDS: CINACALCET HCL 30MG TABLET PO SCH (08:14)
[2019-02-12] MEDS: LEVETIRACETAM 500 MG in SODIUM CHLORIDE 0.9% 100 ML IV SCH (11:17)
[2019-02-12 12:00] LABS: EOSINOPHILS % 3.1 % (0.0-5.0); HEMATOCRIT. 34.8 % (36.0-48.0); HEMOGLOBIN. 10.6 g/dL (12.0-16.0); LYMPHOCYTES % 9.3 % (20.0-50.0); MEAN CORPUSCULAR HEMOGLOBIN 24.4 pg (28.0-32.0); MEAN CORPUSCULAR VOLUME 80.3 fL (81.0-99.0); MEAN PLATELET VOLUME 7.8 fl (7.4-10.4); MONOCYTES % 5.4 % (2.0-8.0); NEUTROPHILS % 82.2 % (40.0-76.0); PLATELET 109 x1000/uL (130-400); RED BLOOD CELL COUNT 4.33 mill/uL (4.2-5.4); RED CELL DISTRIBUTION WIDTH 20.2 % (11.6-14.6)
[2019-02-12] MEDS: ENOXAPARIN 40MG/0.4ML SYR SUBCUT SCH (12:00)
[2019-02-12] MEDS: MONTELUKAST SODIUM 10MG TABLET PO SCH (17:25)
[2019-02-12] MEDS: LORATADINE 10MG TABLET PO SCH (21:25)
[2019-02-12] MEDS: GABAPENTIN 300MG CAPSULE PO SCH (21:25)
[2019-02-12] MEDS: ATORVASTATIN CALCIUM 40MG TABLET PO SCH (21:25)
[2019-02-13] VITALS (12 sets, daily range): BP systolic 100–149; BP diastolic 56–83
[2019-02-13] MEDS: IPRATROPIUM/ALBUTEROL 0.5-3(2.5)MG/3ML NEB HHN SCH ×6 (00:53→21:41)
[2019-02-13] MEDS: BLOOD SUGAR DIAGNOSTIC STRIP TEST SCH ×4 (06:02→21:00)
[2019-02-13] MEDS: INSULIN LISPRO 100 UNITS/ML SUBCUT SCH ×4 (06:06→21:05)
[2019-02-13] MEDS: MIDODRINE HCL 5MG TABLET PO SCH ×3 (06:07→21:06)
[2019-02-13] MEDS: PREDNISOLONE ACETATE 1% OPHTH DROPS 1ML LEFTEYE SCH ×4 (08:20→20:32)
[2019-02-13] MEDS: METHIMAZOLE 5MG TABLET PO SCH (08:21)
[2019-02-13] MEDS: CALCIUM ACETATE 667MG CAPSULE PO SCH ×3 (08:21→17:24)
[2019-02-13] MEDS: FAMOTIDINE 20MG/2ML VIAL IV SCH (08:21)
[2019-02-13] MEDS: PREDNISONE 20MG TABLET PO SCH (08:21)
[2019-02-13] MEDS: CINACALCET HCL 30MG TABLET PO SCH (08:21)
[2019-02-13] MEDS: THIAMINE HCL 100MG TABLET PO SCH (08:21)
[2019-02-13] MEDS: ASPIRIN 81MG EC TABLET PO SCH (08:21)
[2019-02-13] MEDS: LEVETIRACETAM 500 MG in SODIUM CHLORIDE 0.9% 100 ML IV SCH (10:10)
[2019-02-13 15:25] LABS: BASOPHILS % 0.7 % (0.0-2.0); EOSINOPHILS % 1.3 % (0.0-5.0); HEMATOCRIT. 34.1 % (36.0-48.0); HEMOGLOBIN. 10.2 g/dL (12.0-16.0); LYMPHOCYTES % 9.9 % (20.0-50.0); MEAN CORPUSCULAR HEMOGLOBIN 24.2 pg (28.0-32.0); MEAN CORPUSCULAR VOLUME 80.6 fL (81.0-99.0); MEAN PLATELET VOLUME 7.7 fl (7.4-10.4); MONOCYTES % 4.2 % (2.0-8.0); NEUTROPHILS % 83.9 % (40.0-76.0); PLATELET 99 x1000/uL (130-400); RED BLOOD CELL COUNT 4.23 mill/uL (4.2-5.4)
[2019-02-13] MEDS: MONTELUKAST SODIUM 10MG TABLET PO SCH (17:24)
[2019-02-13] MEDS: GABAPENTIN 300MG CAPSULE PO SCH (20:32)
[2019-02-13] MEDS: ATORVASTATIN CALCIUM 40MG TABLET PO SCH (20:32)
[2019-02-13] MEDS: LORATADINE 10MG TABLET PO SCH (20:32)
[2019-02-14] VITALS (13 sets, daily range): BP systolic 98–156; BP diastolic 57–92
[2019-02-14] MEDS: IPRATROPIUM/ALBUTEROL 0.5-3(2.5)MG/3ML NEB HHN SCH ×6 (00:46→20:32)
[2019-02-14] MEDS: INSULIN LISPRO 100 UNITS/ML SUBCUT SCH ×4 (06:16→20:50)
[2019-02-14] MEDS: BLOOD SUGAR DIAGNOSTIC STRIP TEST SCH ×4 (06:16→20:49)
[2019-02-14] MEDS: MIDODRINE HCL 5MG TABLET PO SCH (06:17)
[2019-02-14] MEDS: PREDNISOLONE ACETATE 1% OPHTH DROPS 1ML LEFTEYE SCH ×4 (09:00→20:52)
[2019-02-14] MEDS: CALCIUM ACETATE 667MG CAPSULE PO SCH ×3 (09:39→18:27)
[2019-02-14] MEDS: PREDNISONE 20MG TABLET PO SCH (09:39)
[2019-02-14] MEDS: THIAMINE HCL 100MG TABLET PO SCH (09:39)
[2019-02-14] MEDS: METHIMAZOLE 5MG TABLET PO SCH (09:39)
[2019-02-14] MEDS: ASPIRIN 81MG EC TABLET PO SCH (09:40)
[2019-02-14] MEDS: CINACALCET HCL 30MG TABLET PO SCH (09:40)
[2019-02-14] MEDS: ENOXAPARIN 30MG/0.3ML SYR SUBCUT SCH (09:40)
[2019-02-14] MEDS: MONTELUKAST SODIUM 10MG TABLET PO SCH (18:19)
[2019-02-14] MEDS: GABAPENTIN 300MG CAPSULE PO SCH (20:49)
[2019-02-14] MEDS: ATORVASTATIN CALCIUM 40MG TABLET PO SCH (20:49)
[2019-02-14] MEDS: LORATADINE 10MG TABLET PO SCH (20:49)
[2019-02-14] MEDS ORDERED: BLOOD SUGAR DIAGNOSTIC STRIP TEST SCH (21:00)
[2019-02-15] VITALS (12 sets, daily range): BP systolic 98–161; BP diastolic 48–81
[2019-02-15] MEDS: IPRATROPIUM/ALBUTEROL 0.5-3(2.5)MG/3ML NEB HHN SCH ×6 (00:27→20:21)
[2019-02-15] MEDS: ENOXAPARIN 30MG/0.3ML SYR SUBCUT SCH (08:56)
[2019-02-15] MEDS: THIAMINE HCL 100MG TABLET PO SCH (08:56)
[2019-02-15] MEDS: PREDNISOLONE ACETATE 1% OPHTH DROPS 1ML LEFTEYE SCH (08:56)
[2019-02-15] MEDS: METHIMAZOLE 5MG TABLET PO SCH (08:57)
[2019-02-15] MEDS: ASPIRIN 81MG EC TABLET PO SCH (08:57)
[2019-02-15] MEDS: CALCIUM ACETATE 667MG CAPSULE PO SCH (08:57)
[2019-02-15] MEDS: CINACALCET HCL 30MG TABLET PO SCH (08:57)
[2019-02-15] MEDS: PREDNISONE 20MG TABLET PO SCH (08:58)
[2019-02-15 11:47] LABS: BASOPHILS % 0.4 % (0.0-2.0); EOSINOPHILS % 0.5 % (0.0-5.0); HEMATOCRIT. 33.6 % (36.0-48.0); HEMOGLOBIN. 10.1 g/dL (12.0-16.0); MEAN CORPUSCULAR HEMOGLOBIN 24.5 pg (28.0-32.0); MEAN CORPUSCULAR VOLUME 81.9 fL (81.0-99.0); MEAN PLATELET VOLUME 7.1 fl (7.4-10.4); MONOCYTES % 7.3 % (2.0-8.0); NEUTROPHILS % 80.8 % (40.0-76.0); PLATELET 89 x1000/uL (130-400); RED CELL DISTRIBUTION WIDTH 21.6 % (11.6-14.6)
[2019-02-15] MEDS: MONTELUKAST SODIUM 10MG TABLET PO SCH (17:04)
[2019-02-15] MEDS: LORATADINE 10MG TABLET PO SCH (21:26)
[2019-02-15] MEDS: CLONIDINE 0.1MG TABLET PO PRN (21:37)
[2019-02-16] VITALS (9 sets, daily range): BP systolic 103–136; BP diastolic 56–74
[2019-02-16] MEDS: IPRATROPIUM/ALBUTEROL 0.5-3(2.5)MG/3ML NEB HHN SCH ×2 (01:15→04:52)
[2019-02-16] MEDS: ENOXAPARIN 30MG/0.3ML SYR SUBCUT SCH (09:00)
[2019-02-16] MEDS ORDERED: MUPIROCIN 2% OINT 22GM NS SCH (11:00)
[2019-02-16] MEDS: THIAMINE HCL 100MG TABLET PO SCH (11:37)
[2019-02-16] MEDS: PREDNISONE 20MG TABLET PO SCH (11:37)
[2019-02-16] MEDS: ASPIRIN 81MG EC TABLET PO SCH (11:37)
== END 2019-02-16 16:12 | DRG 710 ==
LOC: ER 04:05 → 5EST 05:07 → EDBEDREQTM 05:29 → EDBEDREQ 05:29 → EDBEDREQSVC 05:33 → ENRESERV 18:43 → MICUSO 01-28 09:54 → 3WST 02-09 12:52
PROVIDERS: ADMIT Internal Medicine Nephrology; ATTEND Internal Medicine Nephrology
PROC: 5A09357 Assistance with Respiratory Ventilation, Less than 24 Consecutive Hours, Continuous Positive Airway Pressure (ICD-10-PCS; 2019-01-17)
PROC: 5A1D70Z Performance of Urinary Filtration, Intermittent, Less than 6 Hours Per Day (ICD-10-PCS; 2019-01-17)
PROC: 5A09357 Assistance with Respiratory Ventilation, Less than 24 Consecutive Hours, Continuous Positive Airway Pressure (ICD-10-PCS; 2019-01-18)
PROC: 5A1D70Z Performance of Urinary Filtration, Intermittent, Less than 6 Hours Per Day (ICD-10-PCS; 2019-01-18)
PROC: 5A09357 Assistance with Respiratory Ventilation, Less than 24 Consecutive Hours, Continuous Positive Airway Pressure (ICD-10-PCS; 2019-01-19)
PROC: 5A09357 Assistance with Respiratory Ventilation, Less than 24 Consecutive Hours, Continuous Positive Airway Pressure (ICD-10-PCS; 2019-01-20)
PROC: 5A1D70Z Performance of Urinary Filtration, Intermittent, Less than 6 Hours Per Day (ICD-10-PCS; 2019-01-20)
PROC: 5A09357 Assistance with Respiratory Ventilation, Less than 24 Consecutive Hours, Continuous Positive Airway Pressure (ICD-10-PCS; 2019-01-21)
PROC: 5A1D70Z Performance of Urinary Filtration, Intermittent, Less than 6 Hours Per Day (ICD-10-PCS; 2019-01-21)
PROC: 5A09357 Assistance with Respiratory Ventilation, Less than 24 Consecutive Hours, Continuous Positive Airway Pressure (ICD-10-PCS; 2019-01-22)
PROC: 5A09357 Assistance with Respiratory Ventilation, Less than 24 Consecutive Hours, Continuous Positive Airway Pressure (ICD-10-PCS; 2019-01-23)
PROC: 5A1D70Z Performance of Urinary Filtration, Intermittent, Less than 6 Hours Per Day (ICD-10-PCS; 2019-01-23)
PROC: 5A09357 Assistance with Respiratory Ventilation, Less than 24 Consecutive Hours, Continuous Positive Airway Pressure (ICD-10-PCS; 2019-01-24)
PROC: 5A09357 Assistance with Respiratory Ventilation, Less than 24 Consecutive Hours, Continuous Positive Airway Pressure (ICD-10-PCS; 2019-01-25)
PROC: 5A1D70Z Performance of Urinary Filtration, Intermittent, Less than 6 Hours Per Day (ICD-10-PCS; 2019-01-25)
PROC: 5A09357 Assistance with Respiratory Ventilation, Less than 24 Consecutive Hours, Continuous Positive Airway Pressure (ICD-10-PCS; 2019-01-26)
PROC: 5A09357 Assistance with Respiratory Ventilation, Less than 24 Consecutive Hours, Continuous Positive Airway Pressure (ICD-10-PCS; 2019-01-27)
PROC: 5A1D70Z Performance of Urinary Filtration, Intermittent, Less than 6 Hours Per Day (ICD-10-PCS; 2019-01-27)
PROC: 5A1955Z Respiratory Ventilation, Greater than 96 Consecutive Hours (ICD-10-PCS; principal; 2019-01-28)
PROC: 0BH17EZ Insertion of Endotracheal Airway into Trachea, Via Natural or Artificial Opening (ICD-10-PCS; 2019-01-28)
PROC: 05H533Z Insertion of Infusion Device into Right Subclavian Vein, Percutaneous Approach (ICD-10-PCS; 2019-01-28)
PROC: B546ZZA Ultrasonography of Right Subclavian Vein, Guidance (ICD-10-PCS; 2019-01-28)
PROC: 5A12012 Performance of Cardiac Output, Single, Manual (ICD-10-PCS; 2019-01-28)
PROC: 5A09357 Assistance with Respiratory Ventilation, Less than 24 Consecutive Hours, Continuous Positive Airway Pressure (ICD-10-PCS; 2019-01-28)
PROC: 5A1D70Z Performance of Urinary Filtration, Intermittent, Less than 6 Hours Per Day (ICD-10-PCS; 2019-01-28)
PROC: 5A1D70Z Performance of Urinary Filtration, Intermittent, Less than 6 Hours Per Day (ICD-10-PCS; 2019-01-29)
PROC: 5A1D70Z Performance of Urinary Filtration, Intermittent, Less than 6 Hours Per Day (ICD-10-PCS; 2019-01-30)
PROC: 4A023N7 Measurement of Cardiac Sampling and Pressure, Left Heart, Percutaneous Approach (ICD-10-PCS; 2019-01-31)
PROC: B2111ZZ Fluoroscopy of Multiple Coronary Arteries using Low Osmolar Contrast (ICD-10-PCS; 2019-01-31)
PROC: B2151ZZ Fluoroscopy of Left Heart using Low Osmolar Contrast (ICD-10-PCS; 2019-01-31)
PROC: B41G1ZZ Fluoroscopy of Left Lower Extremity Arteries using Low Osmolar Contrast (ICD-10-PCS; 2019-01-31)
PROC: 5A1D70Z Performance of Urinary Filtration, Intermittent, Less than 6 Hours Per Day (ICD-10-PCS; 2019-02-01)
PROC: 5A1D70Z Performance of Urinary Filtration, Intermittent, Less than 6 Hours Per Day (ICD-10-PCS; 2019-02-03)
PROC: 0JH608Z Insertion of Defibrillator Generator into Chest Subcutaneous Tissue and Fascia, Open Approach (ICD-10-PCS; 2019-02-03)
PROC: 0JH60PZ Insertion of Cardiac Rhythm Related Device into Chest Subcutaneous Tissue and Fascia, Open Approach (ICD-10-PCS; 2019-02-03)
PROC: 5A09357 Assistance with Respiratory Ventilation, Less than 24 Consecutive Hours, Continuous Positive Airway Pressure (ICD-10-PCS; 2019-02-05)
PROC: 5A09357 Assistance with Respiratory Ventilation, Less than 24 Consecutive Hours, Continuous Positive Airway Pressure (ICD-10-PCS; 2019-02-06)
PROC: 5A1D70Z Performance of Urinary Filtration, Intermittent, Less than 6 Hours Per Day (ICD-10-PCS; 2019-02-06)
PROC: 5A09357 Assistance with Respiratory Ventilation, Less than 24 Consecutive Hours, Continuous Positive Airway Pressure (ICD-10-PCS; 2019-02-07)
PROC: 5A1D70Z Performance of Urinary Filtration, Intermittent, Less than 6 Hours Per Day (ICD-10-PCS; 2019-02-07)
PROC: 5A09357 Assistance with Respiratory Ventilation, Less than 24 Consecutive Hours, Continuous Positive Airway Pressure (ICD-10-PCS; 2019-02-08)
PROC: 5A09357 Assistance with Respiratory Ventilation, Less than 24 Consecutive Hours, Continuous Positive Airway Pressure (ICD-10-PCS; 2019-02-09)
PROC: 5A09357 Assistance with Respiratory Ventilation, Less than 24 Consecutive Hours, Continuous Positive Airway Pressure (ICD-10-PCS; 2019-02-10)
PROC: 5A1D70Z Performance of Urinary Filtration, Intermittent, Less than 6 Hours Per Day (ICD-10-PCS; 2019-02-10)
PROC: 5A09357 Assistance with Respiratory Ventilation, Less than 24 Consecutive Hours, Continuous Positive Airway Pressure (ICD-10-PCS; 2019-02-11)
PROC: 5A09357 Assistance with Respiratory Ventilation, Less than 24 Consecutive Hours, Continuous Positive Airway Pressure (ICD-10-PCS; 2019-02-12)
PROC: 5A09357 Assistance with Respiratory Ventilation, Less than 24 Consecutive Hours, Continuous Positive Airway Pressure (ICD-10-PCS; 2019-02-13)
PROC: 5A1D70Z Performance of Urinary Filtration, Intermittent, Less than 6 Hours Per Day (ICD-10-PCS; 2019-02-13)
PROC: 5A09357 Assistance with Respiratory Ventilation, Less than 24 Consecutive Hours, Continuous Positive Airway Pressure (ICD-10-PCS; 2019-02-14)
PROC: 5A09357 Assistance with Respiratory Ventilation, Less than 24 Consecutive Hours, Continuous Positive Airway Pressure (ICD-10-PCS; 2019-02-15)
PROC: 5A1D70Z Performance of Urinary Filtration, Intermittent, Less than 6 Hours Per Day (ICD-10-PCS; 2019-02-15)
PROC: 5A09357 Assistance with Respiratory Ventilation, Less than 24 Consecutive Hours, Continuous Positive Airway Pressure (ICD-10-PCS; 2019-02-16)
DX: A41.9 Sepsis, unspecified organism (principal); I49.01 Ventricular fibrillation; I21.9 Acute myocardial infarction, unspecified; J69.0 Pneumonitis due to inhalation of food and vomit; G92 Toxic encephalopathy; E43 Unspecified severe protein-calorie malnutrition; R65.21 Severe sepsis with septic shock; J96.01 Acute respiratory failure with hypoxia; J96.02 Acute respiratory failure with hypercapnia; J84.9 Interstitial pulmonary disease, unspecified; I13.2 Hypertensive heart and chronic kidney disease with heart failure and with stage 5 chronic kidney disease, or end stage renal disease; L89.219 Pressure ulcer of right hip, unspecified stage; L89.329 Pressure ulcer of left buttock, unspecified stage; J44.1 Chronic obstructive pulmonary disease with (acute) exacerbation; E87.2 Acidosis; N18.6 End stage renal disease; I50.43 Acute on chronic combined systolic (congestive) and diastolic (congestive) heart failure; E11.622 Type 2 diabetes mellitus with other skin ulcer; E11.40 Type 2 diabetes mellitus with diabetic neuropathy, unspecified; E87.5 Hyperkalemia; E87.8 Other disorders of electrolyte and fluid balance, not elsewhere classified; E78.5 Hyperlipidemia, unspecified; E44.1 Mild protein-calorie malnutrition; E05.00 Thyrotoxicosis with diffuse goiter without thyrotoxic crisis or storm; E11.21 Type 2 diabetes mellitus with diabetic nephropathy; E11.22 Type 2 diabetes mellitus with diabetic chronic kidney disease; E66.01 Morbid (severe) obesity due to excess calories; G89.29 Other chronic pain; I48.0 Paroxysmal atrial fibrillation; I46.2 Cardiac arrest due to underlying cardiac condition; T17.990A Other foreign object in respiratory tract, part unspecified in causing asphyxiation, initial encounter; I49.3 Ventricular premature depolarization; M48.061 Spinal stenosis, lumbar region without neurogenic claudication; M48.56XA Collapsed vertebra, not elsewhere classified, lumbar region, initial encounter for fracture; M51.26 Other intervertebral disc displacement, lumbar region; M85.88 Other specified disorders of bone density and structure, other site; I25.5 Ischemic cardiomyopathy; E87.70 Fluid overload, unspecified; L89.899 Pressure ulcer of other site, unspecified stage; X58.XXXA Exposure to other specified factors, initial encounter; G40.909 Epilepsy, unspecified, not intractable, without status epilepticus; I35.0 Nonrheumatic aortic (valve) stenosis; L97.919 Non-pressure chronic ulcer of unspecified part of right lower leg with unspecified severity; R47.01 Aphasia; Z99.2 Dependence on renal dialysis; Z22.322 Carrier or suspected carrier of Methicillin resistant Staphylococcus aureus; Z86.73 Personal history of transient ischemic attack (TIA), and cerebral infarction without residual deficits; Z95.810 Presence of automatic (implantable) cardiac defibrillator; Z68.36 Body mass index [BMI] 36.0-36.9, adult; Z79.899 Other long term (current) drug therapy; Z79.82 Long term (current) use of aspirin; Y93.89 Activity, other specified; Y92.89 Other specified places as the place of occurrence of the external cause; Y99.8 Other external cause status; I25.2 Old myocardial infarction; T38.0X5A Adverse effect of glucocorticoids and synthetic analogues, initial encounter; Z93.0 Tracheostomy status
CPT/HCPCS: 31500; 33249; 36415; 36569; 36600; 71045; 71250; 72141; 72148; 75820; 76937; 78580; 80048; 80202; 82105; 82375; 82378; 82550; 82553; 82805; 82962; 83605; 83735; 84100; 84134; 84145; 84439; 84443; 84478; 84481; 84484; 85027; 85379; 86300; 86301; 86304; 87070; 87804; 92610; 93005; 93306; 93454; 93640; 93970; 94003; 94640; 94660; 96365; 96366; 96375; 97110; 97162; 97164; 97166; 97168; 97530; 97535; 99291; A4565; A6261; C1722; C1725; C1760; C1769; C1887; C1892; C1893; C1899; J0456; J0690; J0696; J1200; J1580; J1644; J1650; J1815; J1953; J1956; J2370; J2405; J2543; J2704; J2920; J2930; J3010; J3105; J3370; J3490; J7050; J7060; J7131; J7512; J7608; J7611; J7620; P9047; Q9967

== ENCOUNTER → 2019-07-15 | Outpatient (CLI) | payer MEDICARE, MEDICAID ==
[~2019-07-15] MED LIST changes: +ASPI-986 PO; -ATOR-2 PO; -CATATTS2 TD; +CINA30 MT; -CINA60 PO; +DOCU250C69 MT; +FAMO-135 MT; +GABA-531 MT; +HYDR-4001 PO; -HYDR-4134 PO; +HYDR-4135 MT; -ISOS20TA8 PO; +KEPP500 MT; -METO25TA6 PO; -NIFE90TA43 PO; +ONDA8TAB59 MT; -REN400 PO; +SENN-170 MT; +SUCR500T PO; +TAP5 MT
== END | disposition home or self-care (01) ==
LOC: RAD 10:48
PROVIDERS: ATTEND Specialist
DX: A15.9 Respiratory tuberculosis unspecified (principal)
CPT/HCPCS: 71046

== ENCOUNTER 2020-08-27 12:12 | Inpatient (IN) | payer MEDICARE, MEDICAID ==
[~2020-08-27] VITALS: Ht 157.5 cm; Wt 107.0 kg
[2020-08-27] MEDS ORDERED: SODIUM CHLORIDE 0.9% 1,000 ML IV ONE (12:45)
[2020-08-27 13:21] LABS: BASOPHILS % 0.7 % (0.0-2.0); HEMATOCRIT. 53.7 % (36.0-48.0); HEMOGLOBIN. 16.1 g/dL (12.0-16.0); LYMPHOCYTES % 9.5 % (20.0-50.0); MEAN CORPUSCULAR HEMOGLOBIN 24.3 pg (28.0-32.0); MEAN CORPUSCULAR VOLUME 80.8 fL (81.0-99.0); MONOCYTES % 7.8 % (2.0-8.0); RED BLOOD CELL COUNT 6.64 mill/uL (4.2-5.4); RED CELL DISTRIBUTION WIDTH 18.9 % (11.6-14.6)
[2020-08-27 13:27] LABS: CHLORIDE 92 mEq/L (98-107)
[2020-08-27 13:31] LABS: PROTHROMBIN TIME 10.8 sec (9.6-11.0)
[2020-08-27 13:50] LABS: MEAN PLATELET VOLUME 7.1 fl (7.4-10.4); PLATELET 171 x1000/uL (130-400)
[2020-08-27 15:15] LABS: BG BASE EXCESS 2.6 mmol/L (-2.0-2.0); BG CARBOXYHEMOGLOBIN 1.3 % (0.5-1.5); BG DEOXYHEMOGLOBIN 6.8 % (0.0-5.0); BG FRACTION INSPIRED OXYGEN 21; BG HCO3 ACT 29.5 mmol/L (22.0-26.0); BG METHEMOGLOBIN 0.3 % (0.0-1.5); BG OXYGEN SATURATION 93.1 % (92.0-98.5); BG OXYHEMOGLOBIN 91.6 % (94.0-97.0); BG PCO2 53.5 mmHg (35.0-45.0); BG PO2 71.3 mmHg (75.0-100.0); BG SAMPLE SITE RIGHT BRACHIAL; BG TOTAL HEMOGLOBIN 17.5 g/dL (12.0-18.0); BG VENT MODE ROOM AIR
[2020-08-27] MEDS ORDERED: IPRATROPIUM/ALBUTEROL 0.5-3(2.5)MG/3ML NEB NEB PRN (17:15)
[2020-08-27] MEDS ORDERED: ONDANSETRON HCL 4MG/2ML INJ IV PRN (17:15)
[2020-08-27] MEDS ORDERED: PIPERACILLIN/TAZ 3.375G PREMIX 50 ML IV SCH (17:15)
[2020-08-27] MEDS ORDERED: ACETAMINOPHEN 325MG TABLET PO PRN ×2 (17:15)
[2020-08-27] MEDS ORDERED: NITROGLYCERIN 0.4MG TABLET SL SL PRN (17:15)
[2020-08-27] MEDS ORDERED: GUAIFENESIN 200MG/10ML SUGAR FREE UDC PO PRN (17:15)
[2020-08-27] MEDS ORDERED: DEXTROSE 50% WATER 50ML SYRINGE IV PRN (17:15)
[2020-08-27] MEDS ORDERED: TRAMADOL 50MG TABLET PO PRN (17:15)
[2020-08-27] MEDS ORDERED: DOCUSATE SODIUM 100MG CAPSULE PO PRN (17:15)
[2020-08-27] MEDS ORDERED: MAGNESIUM/ALUMINUM HYDROXIDE/SIMETHICONE 30ML UDC PO PRN (17:15)
[2020-08-27] MEDS ORDERED: CLONIDINE 0.1MG TABLET PO PRN (17:15)
[2020-08-27] MEDS ORDERED: PIPERACILLIN/TAZ 3.375G PREMIX 50 ML IV NR (17:45)
[2020-08-27] MEDS ORDERED: DEXT 5% IV NR (17:45)
[2020-08-27] MEDS ORDERED: VANCOMYCIN IV NR (17:45)
[2020-08-27] MEDS ORDERED: WATER IV NR (17:45)
[2020-08-27] MEDS ORDERED: VANCOMYCIN 2,000 MG in DEXT 5% WATER 500 ML IV NR (17:52)
[2020-08-27] MEDS: INSULIN LISPRO 100 UNITS/ML SUBCUT SCH ×2 (18:20→21:00)
[2020-08-27] MEDS: BLOOD SUGAR DIAGNOSTIC STRIP TEST SCH ×2 (18:34→21:00)
[2020-08-27] MEDS: ENOXAPARIN 40MG/0.4ML SYR SUBCUT SCH (20:14)
[2020-08-27] MEDS ORDERED: ZOLPIDEM TARTRATE 5MG TABLET PO PRN (21:00)
[2020-08-27] MEDS: ASCORBIC ACID 500 MG TABLET PO SCH (21:00)
[2020-08-27] MEDS: FAMOTIDINE 20MG TABLET PO SCH (21:00)
[2020-08-27 23:10] VITALS: BP 132/66
[2020-08-27 23:53] LABS: CREATINE KINASE 27 IU/L (26-192); CREATINE KINASE MB FRACTION < 1.0 ng/mL (0.5-3.6)
[2020-08-28 01:50] VITALS: BP 132/66
[2020-08-28 04:00] VITALS: BP 98/56
[2020-08-28] MEDS ORDERED: PIPERACILLIN/TAZOBACTAM 3.375 G in DEXT 5% WATER 100 ML IV SCH ×2 (06:00→08:00)
[2020-08-28] MEDS: SEVELAMER CARBONATE 800 MG TABLET PO SCH ×3 (06:45→18:22)
[2020-08-28] MEDS: BLOOD SUGAR DIAGNOSTIC STRIP TEST SCH ×4 (06:45→20:55)
[2020-08-28] MEDS: INSULIN LISPRO 100 UNITS/ML SUBCUT SCH ×4 (06:45→20:54)
[2020-08-28 08:00] VITALS: BP 98/53
[2020-08-28] MEDS: ASPIRIN 81MG EC TABLET PO SCH (08:14)
[2020-08-28] MEDS: ASCORBIC ACID 500 MG TABLET PO SCH ×2 (08:14→20:56)
[2020-08-28] MEDS: ZINC SULFATE 220 MG ( 50 ) CAPSULE PO SCH (08:14)
[2020-08-28 09:00] LABS: CREATINE KINASE 23 IU/L (26-192)
[2020-08-28 09:01] LABS: CREATINE KINASE MB FRACTION < 1.0 ng/mL (0.5-3.6)
[2020-08-28 12:00] VITALS: BP 132/80
[2020-08-28 16:00] VITALS: BP 132/80
[2020-08-28] MEDS: PIPERACILLIN/TAZOBACTAM 2.25 G in DEXTROSE 5% WATER 50 ML IV SCH ×2 (16:36→23:17)
[2020-08-28] MEDS: ENOXAPARIN 40MG/0.4ML SYR SUBCUT SCH (18:22)
[2020-08-28 20:00] VITALS: BP 105/61
[2020-08-28] MEDS: FAMOTIDINE 20MG TABLET PO SCH (20:56)
[2020-08-29] VITALS: BP 103/50
[2020-08-29 04:00] VITALS: BP 137/75
[2020-08-29] MEDS: PIPERACILLIN/TAZOBACTAM 2.25 G in DEXTROSE 5% WATER 50 ML IV SCH ×3 (06:41→21:37)
[2020-08-29] MEDS: SEVELAMER CARBONATE 800 MG TABLET PO SCH ×3 (06:41→18:10)
[2020-08-29] MEDS: INSULIN LISPRO 100 UNITS/ML SUBCUT SCH ×4 (07:15→21:00)
[2020-08-29] MEDS: BLOOD SUGAR DIAGNOSTIC STRIP TEST SCH ×4 (07:35→21:27)
[2020-08-29 08:00] VITALS: BP 117/64
[2020-08-29] MEDS: ASPIRIN 81MG EC TABLET PO SCH (09:19)
[2020-08-29] MEDS: ASCORBIC ACID 500 MG TABLET PO SCH ×2 (09:19→21:30)
[2020-08-29] MEDS: ZINC SULFATE 220 MG ( 50 ) CAPSULE PO SCH (09:19)
[2020-08-29 12:00] VITALS: BP 119/74
[2020-08-29] MEDS ORDERED: VANCOMYCIN 1250MG in DEXTROSE 5% WATER 250ML IV NR (15:00)
[2020-08-29 16:00] VITALS: BP 104/56
[2020-08-29] MEDS: ENOXAPARIN 40MG/0.4ML SYR SUBCUT SCH (18:10)
[2020-08-29 20:00] VITALS: BP 109/67
[2020-08-29] MEDS: FAMOTIDINE 20MG TABLET PO SCH (21:37)
[2020-08-30] VITALS (7 sets, daily range): BP systolic 93–115; BP diastolic 47–73
[2020-08-30] MEDS: BLOOD SUGAR DIAGNOSTIC STRIP TEST SCH ×4 (07:12→20:18)
[2020-08-30] MEDS: INSULIN LISPRO 100 UNITS/ML SUBCUT SCH ×4 (07:12→20:31)
[2020-08-30] MEDS: PIPERACILLIN/TAZOBACTAM 2.25 G in DEXTROSE 5% WATER 50 ML IV SCH ×3 (07:12→22:00)
[2020-08-30] MEDS: ASCORBIC ACID 500 MG TABLET PO SCH ×2 (08:10→20:24)
[2020-08-30] MEDS: SEVELAMER CARBONATE 800 MG TABLET PO SCH ×3 (08:10→17:59)
[2020-08-30] MEDS: ZINC SULFATE 220 MG ( 50 ) CAPSULE PO SCH (08:10)
[2020-08-30] MEDS: ASPIRIN 81MG EC TABLET PO SCH (08:12)
[2020-08-30 11:35] LABS: EOSINOPHILS % 2.2 % (0.0-5.0); LYMPHOCYTES % 17.4 % (20.0-50.0); MEAN CORPUSCULAR HEMOGLOBIN 24.7 pg (28.0-32.0); MEAN CORPUSCULAR VOLUME 80.6 fL (81.0-99.0); MEAN PLATELET VOLUME 7.2 fl (7.4-10.4); MONOCYTES % 7.8 % (2.0-8.0); NEUTROPHILS % 71.6 % (40.0-76.0); PLATELET 168 x1000/uL (130-400); RED BLOOD CELL COUNT 6.08 mill/uL (4.2-5.4); RED CELL DISTRIBUTION WIDTH 18.1 % (11.6-14.6)
[2020-08-30] MEDS: ENOXAPARIN 40MG/0.4ML SYR SUBCUT SCH (18:00)
[2020-08-30] MEDS: FAMOTIDINE 20MG TABLET PO SCH (20:24)
[2020-08-31 04:00] VITALS: BP 143/92
[2020-08-31] MEDS: PIPERACILLIN/TAZOBACTAM 2.25 G in DEXTROSE 5% WATER 50 ML IV SCH ×3 (06:33→21:34)
[2020-08-31] MEDS: BLOOD SUGAR DIAGNOSTIC STRIP TEST SCH ×4 (06:48→20:59)
[2020-08-31] MEDS: INSULIN LISPRO 100 UNITS/ML SUBCUT SCH ×4 (06:51→21:00)
[2020-08-31 08:00] VITALS: BP 103/94
[2020-08-31] MEDS: SEVELAMER CARBONATE 800 MG TABLET PO SCH ×3 (08:01→17:52)
[2020-08-31] MEDS: ASCORBIC ACID 500 MG TABLET PO SCH ×2 (08:01→21:35)
[2020-08-31] MEDS: ZINC SULFATE 220 MG ( 50 ) CAPSULE PO SCH (08:01)
[2020-08-31] MEDS: ASPIRIN 81MG EC TABLET PO SCH (08:01)
[2020-08-31 12:00] VITALS: BP 123/81
[2020-08-31 16:00] VITALS: BP 125/63
[2020-08-31] MEDS: ENOXAPARIN 40MG/0.4ML SYR SUBCUT SCH (17:52)
[2020-08-31 19:04] VITALS: BP 91/61
[2020-08-31 20:00] VITALS: BP 110/51
[2020-08-31] MEDS: FAMOTIDINE 20MG TABLET PO SCH (21:34)
[2020-09-01] VITALS: BP 115/66
[2020-09-01 04:00] VITALS: BP 119/69
[2020-09-01] MEDS: PIPERACILLIN/TAZOBACTAM 2.25 G in DEXTROSE 5% WATER 50 ML IV SCH (05:58)
[2020-09-01] MEDS: BLOOD SUGAR DIAGNOSTIC STRIP TEST SCH ×2 (05:58→12:22)
[2020-09-01] MEDS: INSULIN LISPRO 100 UNITS/ML SUBCUT SCH ×2 (05:58→12:15)
[2020-09-01 08:00] VITALS: BP 107/55
[2020-09-01] MEDS ORDERED: VANCOMYCIN 1 G PREMIX 200 ML IV NR (08:00)
[2020-09-01] MEDS: SEVELAMER CARBONATE 800 MG TABLET PO SCH ×2 (09:00→12:35)
[2020-09-01] MEDS: ASPIRIN 81MG EC TABLET PO SCH (09:00)
[2020-09-01] MEDS: ZINC SULFATE 220 MG ( 50 ) CAPSULE PO SCH (09:00)
[2020-09-01] MEDS: ASCORBIC ACID 500 MG TABLET PO SCH (09:00)
[2020-09-01 11:16] VITALS: BP 140/90
[2020-09-01 12:00] VITALS: BP 140/90
== END 2020-09-01 14:06 | disposition home or self-care (01) | DRG 720 ==
LOC: ER 12:12 → 5WST 16:52 → SUPCPDRO 16:57 → EDBEDREQ 16:58 → EDBEDREQTM 16:58 → ENRESERV 22:11 → CANRESERV 22:11 → ENRESERV 22:24
PROVIDERS: ADMIT Internal Medicine; ATTEND Internal Medicine
PROC: 5A1D70Z Performance of Urinary Filtration, Intermittent, Less than 6 Hours Per Day (ICD-10-PCS; principal; 2020-08-29)
PROC: 5A1D70Z Performance of Urinary Filtration, Intermittent, Less than 6 Hours Per Day (ICD-10-PCS; 2020-08-31)
DX: A41.9 Sepsis, unspecified organism (principal); N18.6 End stage renal disease; E11.22 Type 2 diabetes mellitus with diabetic chronic kidney disease; I13.2 Hypertensive heart and chronic kidney disease with heart failure and with stage 5 chronic kidney disease, or end stage renal disease; E87.1 Hypo-osmolality and hyponatremia; E44.0 Moderate protein-calorie malnutrition; E83.51 Hypocalcemia; R09.02 Hypoxemia; I95.9 Hypotension, unspecified; E66.01 Morbid (severe) obesity due to excess calories; I48.91 Unspecified atrial fibrillation; D64.9 Anemia, unspecified; E11.21 Type 2 diabetes mellitus with diabetic nephropathy; E11.40 Type 2 diabetes mellitus with diabetic neuropathy, unspecified; I49.01 Ventricular fibrillation; G40.909 Epilepsy, unspecified, not intractable, without status epilepticus; E11.622 Type 2 diabetes mellitus with other skin ulcer; L97.911 Non-pressure chronic ulcer of unspecified part of right lower leg limited to breakdown of skin; E04.9 Nontoxic goiter, unspecified; I50.9 Heart failure, unspecified; Z99.2 Dependence on renal dialysis; Z79.891 Long term (current) use of opiate analgesic; Z79.82 Long term (current) use of aspirin; Z79.899 Other long term (current) drug therapy; Z68.41 Body mass index [BMI] 40.0-44.9, adult; Z95.810 Presence of automatic (implantable) cardiac defibrillator; I48.0 Paroxysmal atrial fibrillation
CPT/HCPCS: 36415; 36600; 71045; 80048; 80053; 80061; 80202; 82270; 82375; 82550; 82553; 82805; 82962; 83036; 83605; 84484; 85025; 93005; 93306; 93880; 93970; 96365; 97162; 97166; 97530; 97535; 99291; J1650; J1815; J2405; J2543; J3370; J7030; J7040; J7060

== ENCOUNTER 2021-10-16 16:06 | Inpatient (IN) | payer MEDICARE, MEDICAID ==
[~2021-10-16] VITALS: Ht 162.6 cm; Wt 136.1 kg
[2021-10-16 00:39] VITALS: BP 97/57
[~2021-10-16 16:06] MED LIST changes: -GABA-531 MT; +GABA-532 MT; -SENN-170 MT; +SENN-257 MT
[2021-10-16 17:27] LABS: HEMATOCRIT. 45.4 % (36.0-48.0); HEMOGLOBIN. 13.4 g/dL (12.0-16.0); MEAN PLATELET VOLUME 9.1 fl (7.4-10.4); PLATELET 60 x1000/uL (130-400); RED BLOOD CELL COUNT 5.61 mill/uL (4.2-5.4); RED CELL DISTRIBUTION WIDTH 17.3 % (11.6-14.6)
[2021-10-16 17:32] LABS: CHLORIDE 104 mEq/L (98-107)
[2021-10-16 18:12] LABS: PLATELET ESTIMATE DECREASED
[2021-10-17 00:39] VITALS: BP 97/57
[2021-10-17] MEDS ORDERED: METO-385 MT (02:09)
[2021-10-17] MEDS ORDERED: CLONIDINE 0.1MG TABLET PO PRN (03:00)
[2021-10-17 04:00] VITALS: BP 100/60
[2021-10-17] MEDS: DEXTROSE 50% WATER 50ML SYRINGE IV PRN ×2 (05:45→16:53)
[2021-10-17] MEDS: GABAPENTIN 100MG CAPSULE PO SCH ×3 (06:32→21:41)
[2021-10-17] MEDS: BLOOD SUGAR DIAGNOSTIC STRIP TEST SCH ×4 (06:32→21:00)
[2021-10-17] MEDS: INSULIN LISPRO 100 UNITS/ML SUBCUT SCH ×4 (06:44→21:00)
[2021-10-17 08:00] VITALS: BP 90/51
[2021-10-17 08:40] LABS: EOSINOPHILS % 2.4 % (0.0-5.0); HEMATOCRIT. 41.5 % (36.0-48.0); HEMOGLOBIN. 12.7 g/dL (12.0-16.0); LYMPHOCYTES % 11.7 % (20.0-50.0); MEAN CORPUSCULAR HEMOGLOBIN 24.4 pg (28.0-32.0); MEAN CORPUSCULAR VOLUME 79.8 fL (81.0-99.0); MEAN PLATELET VOLUME 8.6 fl (7.4-10.4); MONOCYTES % 8.4 % (2.0-8.0); NEUTROPHILS % 76.5 % (40.0-76.0); RED BLOOD CELL COUNT 5.21 mill/uL (4.2-5.4); RED CELL DISTRIBUTION WIDTH 17.3 % (11.6-14.6)
[2021-10-17 08:59] LABS: PHOSPHORUS 1.9 mg/dL (2.5-4.9)
[2021-10-17] MEDS ORDERED: LEVETIRACETAM 250MG TABLET PO SCH (09:00)
[2021-10-17] MEDS: METHIMAZOLE 5MG TABLET PO SCH (10:08)
[2021-10-17] MEDS: CINACALCET HCL 30MG TABLET PO SCH (10:08)
[2021-10-17] MEDS: LEVETIRACETAM 500MG TABLET PO SCH ×2 (10:08→21:41)
[2021-10-17 12:00] VITALS: BP 90/57
[2021-10-17 16:00] VITALS: BP 101/70
[2021-10-17 17:06] LABS: HEPATITIS B SURFACE ANTIGEN NEGATIVE
[2021-10-17 20:00] VITALS: BP 107/63
[2021-10-17] MEDS: FAMOTIDINE 20MG TABLET PO SCH (21:41)
[2021-10-18] VITALS: BP 110/69
[2021-10-18 04:00] VITALS: BP 104/63
[2021-10-18] MEDS: GABAPENTIN 100MG CAPSULE PO SCH ×3 (05:55→22:44)
[2021-10-18] MEDS: BLOOD SUGAR DIAGNOSTIC STRIP TEST SCH ×4 (06:28→21:00)
[2021-10-18] MEDS: INSULIN LISPRO 100 UNITS/ML SUBCUT SCH ×4 (06:28→21:00)
[2021-10-18 07:34] LABS: BASOPHILS % 1.5 % (0.0-2.0); EOSINOPHILS % 4.4 % (0.0-5.0); HEMOGLOBIN. 13.1 g/dL (12.0-16.0); LYMPHOCYTES % 18.7 % (20.0-50.0); MEAN CORPUSCULAR HEMOGLOBIN 24.4 pg (28.0-32.0); MEAN CORPUSCULAR VOLUME 81.8 fL (81.0-99.0); MEAN PLATELET VOLUME 8.9 fl (7.4-10.4); NEUTROPHILS % 69.4 % (40.0-76.0); RED BLOOD CELL COUNT 5.37 mill/uL (4.2-5.4); RED CELL DISTRIBUTION WIDTH 17.8 % (11.6-14.6)
[2021-10-18 08:00] VITALS: BP 92/46
[2021-10-18] MEDS: CINACALCET HCL 30MG TABLET PO SCH (08:33)
[2021-10-18] MEDS: METHIMAZOLE 5MG TABLET PO SCH (08:33)
[2021-10-18] MEDS: LEVETIRACETAM 500MG TABLET PO SCH ×2 (08:33→22:44)
[2021-10-18 12:00] VITALS: BP 76/42
[2021-10-18] MEDS ORDERED: ALTEPLASE 2MG/VIAL ITC NR (13:00)
[2021-10-18 13:29] LABS: PLATELET ESTIMATE MARKEDLY DECREASED
[2021-10-18 13:30] LABS: PLATELET 48 x1000/uL (130-400)
[2021-10-18 16:00] VITALS: BP 124/73
[2021-10-18] MEDS: DEXT 5%/0.45% NACL 1000ML 1,000 ML IV SCH (18:03)
[2021-10-18] MEDS: CEFTRIAXONE 1,000 MG in DEXTROSE 5% WATER 50 ML IV SCH (18:04)
[2021-10-18 20:00] VITALS: BP 98/40
[2021-10-18] MEDS: FAMOTIDINE 20MG TABLET PO SCH (22:45)
[2021-10-19] VITALS (15 sets, daily range): BP systolic 67–149; BP diastolic 34–100
[2021-10-19] MEDS: BLOOD SUGAR DIAGNOSTIC STRIP TEST SCH ×4 (06:03→21:01)
[2021-10-19] MEDS: GABAPENTIN 100MG CAPSULE PO SCH ×3 (06:11→22:00)
[2021-10-19 06:55] LABS: BASOPHILS % 0.7 % (0.0-2.0); HEMATOCRIT. 42.6 % (36.0-48.0); HEMOGLOBIN. 12.8 g/dL (12.0-16.0); LYMPHOCYTES % 7.7 % (20.0-50.0); MEAN CORPUSCULAR VOLUME 80.1 fL (81.0-99.0); MEAN PLATELET VOLUME 8.4 fl (7.4-10.4); MONOCYTES % 5.9 % (2.0-8.0); NEUTROPHILS % 82.7 % (40.0-76.0); RED BLOOD CELL COUNT 5.32 mill/uL (4.2-5.4); RED CELL DISTRIBUTION WIDTH 17.5 % (11.6-14.6)
[2021-10-19 07:03] LABS: PLATELET 33 x1000/uL (130-400)
[2021-10-19] MEDS: INSULIN LISPRO 100 UNITS/ML SUBCUT SCH ×4 (07:10→21:00)
[2021-10-19] MEDS: CINACALCET HCL 30MG TABLET PO SCH (09:00)
[2021-10-19] MEDS: LEVETIRACETAM 500MG TABLET PO SCH ×2 (09:00→21:00)
[2021-10-19] MEDS: METHIMAZOLE 5MG TABLET PO SCH (09:00)
[2021-10-19] MEDS ORDERED: SODIUM CHLORIDE 0.9% 500 ML IV NR (09:11)
[2021-10-19] MEDS ORDERED: MIDODRINE HCL 5MG TABLET PO SCH (10:15)
[2021-10-19] MEDS: MIDODRINE HCL 5MG TABLET PO SCH ×3 (10:21→17:14)
[2021-10-19] MEDS: DEXT 5%/0.45% NACL 1000ML 1,000 ML IV SCH (10:33)
[2021-10-19] MEDS: CEFTRIAXONE 1,000 MG in DEXTROSE 5% WATER 50 ML IV SCH (13:54)
[2021-10-19] MEDS ORDERED: ALTEPLASE 2MG/VIAL ITC NR (14:00)
[2021-10-19] MEDS: FAMOTIDINE 20MG TABLET PO SCH (21:00)
[2021-10-19] MEDS ORDERED: DOPAMINE 800MG PREMIX (DOUBLE) 250 ML IV PRN (21:45)
[2021-10-20] VITALS (100 sets, daily range): BP systolic 50–175; BP diastolic 17–108
[2021-10-20] MEDS: NOREPINEPHRINE 32 MG in DEXT 5% WATER 218 ML IV PRN (01:23)
[2021-10-20 06:14] LABS: HEMOGLOBIN. 13.1 g/dL (12.0-16.0); MEAN CORPUSCULAR HEMOGLOBIN 24.4 pg (28.0-32.0); RED BLOOD CELL COUNT 5.36 mill/uL (4.2-5.4); RED CELL DISTRIBUTION WIDTH 17.9 % (11.6-14.6)
[2021-10-20] MEDS: INSULIN LISPRO 100 UNITS/ML SUBCUT SCH ×4 (07:00→21:00)
[2021-10-20 07:03] LABS: PLATELET 35 x1000/uL (130-400)
[2021-10-20] MEDS: BLOOD SUGAR DIAGNOSTIC STRIP TEST SCH ×4 (07:10→21:42)
[2021-10-20] MEDS: GABAPENTIN 100MG CAPSULE PO SCH ×3 (08:14→21:22)
[2021-10-20] MEDS: CINACALCET HCL 30MG TABLET PO SCH (08:15)
[2021-10-20] MEDS: MIDODRINE HCL 5MG TABLET PO SCH ×3 (08:15→18:39)
[2021-10-20] MEDS: METHIMAZOLE 5MG TABLET PO SCH (09:00)
[2021-10-20] MEDS: LEVETIRACETAM 500MG TABLET PO SCH ×2 (09:46→21:22)
[2021-10-20 13:34] LABS: PLATELET ESTIMATE MARKEDLY DECREASED
[2021-10-20] MEDS: DEXT 5%/0.45% NACL 1000ML 1,000 ML IV SCH (13:52)
[2021-10-20] MEDS: FAMOTIDINE 20MG TABLET PO SCH (21:22)
[2021-10-21] VITALS (100 sets, daily range): BP systolic 52–168; BP diastolic 19–120
[2021-10-21] MEDS: BLOOD SUGAR DIAGNOSTIC STRIP TEST SCH ×4 (05:31→21:50)
[2021-10-21] MEDS: GABAPENTIN 100MG CAPSULE PO SCH ×4 (05:31→22:03)
[2021-10-21] MEDS: INSULIN LISPRO 100 UNITS/ML SUBCUT SCH ×4 (05:31→21:00)
[2021-10-21 09:07] LABS: BG BASE EXCESS -6.6 mmol/L (-2.0-2.0); BG CARBOXYHEMOGLOBIN 0.3 % (0.5-1.5); BG DEOXYHEMOGLOBIN 0.7 % (0.0-5.0); BG FRACTION INSPIRED OXYGEN 40; BG HCO3 ACT 25.5 mmol/L (22.0-26.0); BG OXYGEN SATURATION 99.3 % (92.0-98.5); BG PCO2 87.3 mmHg (35.0-45.0); BG PH 7.083 (7.350-7.450); BG PO2 202.6 mmHg (75.0-100.0); BG SAMPLE SITE RIGHT RADIAL; BG TOTAL HEMOGLOBIN 14.5 g/dL (12.0-18.0); BG VENT MODE NASAL CANNULA
[2021-10-21] MEDS: CINACALCET HCL 30MG TABLET PO SCH (09:07)
[2021-10-21] MEDS: DEXT 5%/0.45% NACL 1000ML 1,000 ML IV SCH ×2 (09:07→22:02)
[2021-10-21] MEDS: LEVETIRACETAM 500MG TABLET PO SCH ×2 (09:08→21:51)
[2021-10-21] MEDS: MIDODRINE HCL 5MG TABLET PO SCH ×3 (09:08→17:00)
[2021-10-21] MEDS: METHIMAZOLE 5MG TABLET PO SCH (09:08)
[2021-10-21 09:31] LABS: HEMATOCRIT. 44.8 % (36.0-48.0); HEMOGLOBIN. 13.5 g/dL (12.0-16.0); MEAN CORPUSCULAR HEMOGLOBIN 24.8 pg (28.0-32.0); MEAN CORPUSCULAR VOLUME 82.1 fL (81.0-99.0); MEAN PLATELET VOLUME 8.8 fl (7.4-10.4); RED BLOOD CELL COUNT 5.45 mill/uL (4.2-5.4); RED CELL DISTRIBUTION WIDTH 17.1 % (11.6-14.6)
[2021-10-21 09:44] LABS: PHOSPHORUS 3.8 mg/dL (2.5-4.9)
[2021-10-21 10:22] LABS: PLATELET ESTIMATE MARKEDLY DECREASED
[2021-10-21 10:23] LABS: PLATELET 28 x1000/uL (130-400)
[2021-10-21] MEDS ORDERED: IPRATROPIUM/ALBUTEROL 0.5-3(2.5)MG/3ML NEB HHN PRN (10:45)
[2021-10-21 11:17] LABS: BG CARBOXYHEMOGLOBIN 0.9 % (0.5-1.5); BG DEOXYHEMOGLOBIN 0.9 % (0.0-5.0); BG FRACTION INSPIRED OXYGEN 50; BG HCO3 ACT 27.5 mmol/L (22.0-26.0); BG METHEMOGLOBIN 0.4 % (0.0-1.5); BG OXYGEN SATURATION 99.1 % (92.0-98.5); BG OXYHEMOGLOBIN 97.8 % (94.0-97.0); BG PCO2 69.4 mmHg (35.0-45.0); BG PH 7.216 (7.350-7.450); BG PO2 150.1 mmHg (75.0-100.0); BG SAMPLE SITE RIGHT RADIAL; BG TOTAL HEMOGLOBIN 14.6 g/dL (12.0-18.0); BG TOTAL RESPIRATORY RATE 27 b/min; BG VENT MODE MASK - BIPAP
[2021-10-21 13:08] LABS: T4 FREE 1.17 ng/dL (0.76-1.46)
[2021-10-21 13:50] LABS: HEPATITIS B SURFACE ANTIGEN NEGATIVE
[2021-10-21] MEDS: IPRATROPIUM/ALBUTEROL 0.5-3(2.5)MG/3ML NEB HHN SCH ×2 (14:32→20:25)
[2021-10-21 16:11] LABS: BG BASE EXCESS -2.7 mmol/L (-2.0-2.0); BG CARBOXYHEMOGLOBIN 0.8 % (0.5-1.5); BG DEOXYHEMOGLOBIN 1.9 % (0.0-5.0); BG FRACTION INSPIRED OXYGEN 40; BG HCO3 ACT 27.4 mmol/L (22.0-26.0); BG METHEMOGLOBIN 0.5 % (0.0-1.5); BG OXYGEN SATURATION 98.1 % (92.0-98.5); BG OXYHEMOGLOBIN 96.8 % (94.0-97.0); BG PCO2 73.2 mmHg (35.0-45.0); BG PH 7.191 (7.350-7.450); BG SAMPLE SITE RIGHT RADIAL; BG TOTAL HEMOGLOBIN 14.6 g/dL (12.0-18.0); BG TOTAL RESPIRATORY RATE 24 b/min; BG VENT MODE MASK - BIPAP
[2021-10-21] MEDS ORDERED: SODIUM BICARBONATE 8.4% 1 MEQ/ML 50ML SYR IV NR (17:15)
[2021-10-21] MEDS: FAMOTIDINE 20MG TABLET PO SCH (21:51)
[2021-10-21] MEDS ORDERED: SODIUM BICARBONATE 8.4% 1 MEQ/ML 50ML SYR IV SCH (22:00)
[2021-10-21] MEDS: NOREPINEPHRINE 32 MG in DEXT 5% WATER 218 ML IV PRN (23:27)
[2021-10-22] VITALS (91 sets, daily range): BP systolic 49–190; BP diastolic 15–152
[2021-10-22] MEDS: IPRATROPIUM/ALBUTEROL 0.5-3(2.5)MG/3ML NEB HHN SCH ×4 (00:30→20:11)
[2021-10-22] MEDS: GABAPENTIN 100MG CAPSULE PO SCH ×3 (05:55→21:00)
[2021-10-22 06:12] LABS: EOSINOPHILS % 0.8 % (0.0-5.0); HEMATOCRIT. 42.5 % (36.0-48.0); HEMOGLOBIN. 13.2 g/dL (12.0-16.0); LYMPHOCYTES % 7.1 % (20.0-50.0); MEAN CORPUSCULAR HEMOGLOBIN 25.1 pg (28.0-32.0); MEAN CORPUSCULAR VOLUME 80.5 fL (81.0-99.0); MEAN PLATELET VOLUME 8.5 fl (7.4-10.4); MONOCYTES % 3.7 % (2.0-8.0); NEUTROPHILS % 87.4 % (40.0-76.0); RED BLOOD CELL COUNT 5.28 mill/uL (4.2-5.4); RED CELL DISTRIBUTION WIDTH 17.6 % (11.6-14.6)
[2021-10-22 06:46] LABS: INR 1.2; PARTIAL THROMBOPLASTIN TIME 29.1 sec (23.4-31.0); PROTHROMBIN TIME 12.3 sec (9.6-11.0)
[2021-10-22] MEDS: BLOOD SUGAR DIAGNOSTIC STRIP TEST SCH ×4 (07:50→20:54)
[2021-10-22] MEDS: INSULIN LISPRO 100 UNITS/ML SUBCUT SCH ×4 (08:20→20:54)
[2021-10-22 09:24] LABS: BG BASE EXCESS -1.6 mmol/L (-2.0-2.0); BG DEOXYHEMOGLOBIN 0.6 % (0.0-5.0); BG HCO3 ACT 22.8 mmol/L (22.0-26.0); BG METHEMOGLOBIN 0.4 % (0.0-1.5); BG OXYGEN SATURATION 99.4 % (92.0-98.5); BG PCO2 37.4 mmHg (35.0-45.0); BG PH 7.402 (7.350-7.450); BG PO2 167.8 mmHg (75.0-100.0); BG SAMPLE SITE RIGHT RADIAL; BG TOTAL HEMOGLOBIN 14.4 g/dL (12.0-18.0); BG VENT MODE MASK - BIPAP
[2021-10-22 11:15] LABS: PLATELET 50 x1000/uL (130-400)
[2021-10-22] MEDS: CINACALCET HCL 30MG TABLET PO SCH (11:17)
[2021-10-22] MEDS: METHIMAZOLE 5MG TABLET PO SCH (11:17)
[2021-10-22] MEDS: LEVETIRACETAM 500MG TABLET PO SCH ×2 (11:17→20:53)
[2021-10-22 12:14] LABS: PLATELET 34 x1000/uL (130-400)
[2021-10-22] MEDS: MIDODRINE HCL 5MG TABLET PO SCH ×2 (13:00→18:30)
[2021-10-22] MEDS: NOREPINEPHRINE 32 MG in DEXT 5% WATER 218 ML IV PRN (16:05)
[2021-10-22] MEDS: DEXT 5%/0.45% NACL 1000ML 1,000 ML IV SCH (20:53)
[2021-10-22] MEDS: FAMOTIDINE 20MG TABLET PO SCH (20:53)
[2021-10-23] VITALS (94 sets, daily range): BP systolic 77–125; BP diastolic 36–92
[2021-10-23] MEDS: IPRATROPIUM/ALBUTEROL 0.5-3(2.5)MG/3ML NEB HHN SCH ×4 (02:15→20:12)
[2021-10-23] MEDS: GABAPENTIN 100MG CAPSULE PO SCH ×3 (05:55→21:02)
[2021-10-23 06:04] LABS: BASOPHILS % 1.1 % (0.0-2.0); HEMATOCRIT. 41.6 % (36.0-48.0); HEMOGLOBIN. 12.6 g/dL (12.0-16.0); LYMPHOCYTES % 13.7 % (20.0-50.0); MEAN CORPUSCULAR HEMOGLOBIN 24.4 pg (28.0-32.0); MEAN CORPUSCULAR VOLUME 80.7 fL (81.0-99.0); MEAN PLATELET VOLUME 8.2 fl (7.4-10.4); MONOCYTES % 6.2 % (2.0-8.0); RED BLOOD CELL COUNT 5.15 mill/uL (4.2-5.4); RED CELL DISTRIBUTION WIDTH 17.1 % (11.6-14.6)
[2021-10-23 06:36] LABS: PLATELET 42 x1000/uL (130-400)
[2021-10-23] MEDS: INSULIN LISPRO 100 UNITS/ML SUBCUT SCH ×4 (08:20→21:00)
[2021-10-23] MEDS: MIDODRINE HCL 5MG TABLET PO SCH ×3 (08:39→17:36)
[2021-10-23] MEDS: METHIMAZOLE 5MG TABLET PO SCH (08:39)
[2021-10-23] MEDS: BLOOD SUGAR DIAGNOSTIC STRIP TEST SCH ×4 (08:39→20:59)
[2021-10-23] MEDS: LEVETIRACETAM 500MG TABLET PO SCH ×2 (08:40→20:59)
[2021-10-23] MEDS: CINACALCET HCL 30MG TABLET PO SCH (08:45)
[2021-10-23 09:28] LABS: BG BASE EXCESS -1.7 mmol/L (-2.0-2.0); BG CARBOXYHEMOGLOBIN 0.9 % (0.5-1.5); BG FRACTION INSPIRED OXYGEN 28; BG METHEMOGLOBIN 0.3 % (0.0-1.5); BG OXYHEMOGLOBIN 97.8 % (94.0-97.0); BG PCO2 57.1 mmHg (35.0-45.0); BG PH 7.277 (7.350-7.450); BG PO2 148.1 mmHg (75.0-100.0); BG TOTAL HEMOGLOBIN 13.7 g/dL (12.0-18.0); BG VENT MODE NASAL CANNULA
[2021-10-23 12:22] LABS: PLATELET ESTIMATE MARKEDLY DECREASED
[2021-10-23] MEDS: DEXT 5%/0.45% NACL 1000ML 1,000 ML IV SCH (14:27)
[2021-10-23] MEDS: FLUDROCORTISONE ACETATE 0.1MG TABLET PO SCH (14:27)
[2021-10-23] MEDS: NOREPINEPHRINE 32 MG in DEXT 5% WATER 218 ML IV PRN (18:47)
[2021-10-23] MEDS: FAMOTIDINE 20MG TABLET PO SCH (20:59)
[2021-10-24] VITALS (91 sets, daily range): BP systolic 60–155; BP diastolic 33–98
[2021-10-24] MEDS: IPRATROPIUM/ALBUTEROL 0.5-3(2.5)MG/3ML NEB HHN SCH ×4 (02:02→20:37)
[2021-10-24] MEDS: GABAPENTIN 100MG CAPSULE PO SCH ×3 (05:28→20:15)
[2021-10-24] MEDS: SENNOSIDES/DOCUSATE SOD 8.6/50MG TABLET PO PRN ×2 (05:31→08:31)
[2021-10-24] MEDS: INSULIN LISPRO 100 UNITS/ML SUBCUT SCH ×4 (08:20→20:15)
[2021-10-24] MEDS: BLOOD SUGAR DIAGNOSTIC STRIP TEST SCH ×4 (08:27→20:15)
[2021-10-24] MEDS: CINACALCET HCL 30MG TABLET PO SCH (08:30)
[2021-10-24] MEDS: MIDODRINE HCL 5MG TABLET PO SCH ×3 (08:30→17:52)
[2021-10-24] MEDS: LEVETIRACETAM 500MG TABLET PO SCH ×2 (08:31→20:15)
[2021-10-24] MEDS: FLUDROCORTISONE ACETATE 0.1MG TABLET PO SCH (08:31)
[2021-10-24] MEDS: METHIMAZOLE 5MG TABLET PO SCH (08:31)
[2021-10-24 09:21] LABS: BASOPHILS % 0.7 % (0.0-2.0); EOSINOPHILS % 2.5 % (0.0-5.0); HEMATOCRIT. 37.6 % (36.0-48.0); HEMOGLOBIN. 11.7 g/dL (12.0-16.0); LYMPHOCYTES % 10.4 % (20.0-50.0); MEAN CORPUSCULAR HEMOGLOBIN 25.4 pg (28.0-32.0); MEAN CORPUSCULAR VOLUME 81.4 fL (81.0-99.0); MEAN PLATELET VOLUME 8.5 fl (7.4-10.4); NEUTROPHILS % 80.4 % (40.0-76.0); RED BLOOD CELL COUNT 4.62 mill/uL (4.2-5.4); RED CELL DISTRIBUTION WIDTH 17.1 % (11.6-14.6)
[2021-10-24 09:36] LABS: PLATELET 37 x1000/uL (130-400)
[2021-10-24] MEDS: DEXT 5%/0.45% NACL 1000ML 1,000 ML IV SCH (10:10)
[2021-10-24] MEDS: CEFEPIME 1,000 MG in DEXTROSE 5% WATER 50 ML IV SCH (14:54)
[2021-10-24] MEDS: FAMOTIDINE 20MG TABLET PO SCH (20:15)
[2021-10-24] MEDS: DEXTROSE 50% WATER 50ML SYRINGE IV PRN (21:14)
[2021-10-25] VITALS (86 sets, daily range): BP systolic 73–145; BP diastolic 34–100
[2021-10-25] MEDS: IPRATROPIUM/ALBUTEROL 0.5-3(2.5)MG/3ML NEB HHN SCH ×4 (01:37→20:44)
[2021-10-25] MEDS: DEXT 5%/0.45% NACL 1000ML 1,000 ML IV SCH (06:00)
[2021-10-25] MEDS: BLOOD SUGAR DIAGNOSTIC STRIP TEST SCH ×4 (07:50→21:00)
[2021-10-25] MEDS: INSULIN LISPRO 100 UNITS/ML SUBCUT SCH ×4 (08:20→21:00)
[2021-10-25] MEDS: CINACALCET HCL 30MG TABLET PO SCH (09:00)
[2021-10-25] MEDS: FLUDROCORTISONE ACETATE 0.1MG TABLET PO SCH (09:00)
[2021-10-25] MEDS: METHIMAZOLE 5MG TABLET PO SCH (09:00)
[2021-10-25] MEDS: MIDODRINE HCL 5MG TABLET PO SCH ×3 (09:11→18:22)
[2021-10-25] MEDS: LEVETIRACETAM 500MG TABLET PO SCH ×2 (09:11→22:07)
[2021-10-25] MEDS: NOREPINEPHRINE 32 MG in DEXT 5% WATER 218 ML IV PRN (11:19)
[2021-10-25 12:55] LABS: BG BASE EXCESS -2.9 mmol/L (-2.0-2.0); BG CARBOXYHEMOGLOBIN 1.3 % (0.5-1.5); BG DEOXYHEMOGLOBIN 5.1 % (0.0-5.0); BG FRACTION INSPIRED OXYGEN 21; BG HCO3 ACT 25.4 mmol/L (22.0-26.0); BG METHEMOGLOBIN 0.3 % (0.0-1.5); BG OXYGEN SATURATION 94.8 % (92.0-98.5); BG OXYHEMOGLOBIN 93.3 % (94.0-97.0); BG PCO2 60.7 mmHg (35.0-45.0); BG PH 7.239 (7.350-7.450); BG PO2 75.2 mmHg (75.0-100.0); BG SAMPLE SITE RIGHT RADIAL; BG TOTAL HEMOGLOBIN 12.5 g/dL (12.0-18.0); BG VENT MODE ROOM AIR
[2021-10-25 13:16] LABS: HEMOGLOBIN. 11.4 g/dL (12.0-16.0); MEAN CORPUSCULAR VOLUME 81.9 fL (81.0-99.0); MEAN PLATELET VOLUME 8.4 fl (7.4-10.4); PLATELET 71 x1000/uL (130-400); RED BLOOD CELL COUNT 4.77 mill/uL (4.2-5.4); RED CELL DISTRIBUTION WIDTH 16.9 % (11.6-14.6)
[2021-10-25 13:44] LABS: NUCLEATED RED BLOOD CELLS 1 /100 WBC; PLATELET ESTIMATE DECREASED
[2021-10-25] MEDS: GABAPENTIN 100MG CAPSULE PO SCH ×3 (14:00→22:07)
[2021-10-25] MEDS: CEFEPIME 1,000 MG in DEXTROSE 5% WATER 50 ML IV SCH (14:27)
[2021-10-25 15:34] LABS: BG BASE EXCESS -5.4 mmol/L (-2.0-2.0); BG CARBOXYHEMOGLOBIN 1.5 % (0.5-1.5); BG DEOXYHEMOGLOBIN 2.1 % (0.0-5.0); BG FRACTION INSPIRED OXYGEN 30; BG HCO3 ACT 22.7 mmol/L (22.0-26.0); BG METHEMOGLOBIN 0.4 % (0.0-1.5); BG OXYGEN SATURATION 97.9 % (92.0-98.5); BG PCO2 55.1 mmHg (35.0-45.0); BG PH 7.232 (7.350-7.450); BG PO2 103.2 mmHg (75.0-100.0); BG SAMPLE SITE RIGHT RADIAL; BG TOTAL RESPIRATORY RATE 23 b/min; BG VENT MODE MASK - BIPAP
[2021-10-25] MEDS: FAMOTIDINE 20MG TABLET PO SCH (22:06)
[2021-10-26] VITALS (81 sets, daily range): BP systolic 52–215; BP diastolic 25–149
[2021-10-26] MEDS: IPRATROPIUM/ALBUTEROL 0.5-3(2.5)MG/3ML NEB HHN SCH ×5 (00:42→20:37)
[2021-10-26] MEDS: DEXT 5%/0.45% NACL 1000ML 1,000 ML IV SCH ×2 (02:00→21:49)
[2021-10-26 02:39] LABS: BG SAMPLE SITE RIGHT RADIAL
[2021-10-26 02:40] LABS: BG BASE EXCESS -11.8 mmol/L (-2.0-2.0); BG CARBOXYHEMOGLOBIN 1.1 % (0.5-1.5); BG DEOXYHEMOGLOBIN 21.1 % (0.0-5.0); BG FRACTION INSPIRED OXYGEN 30; BG METHEMOGLOBIN 0.3 % (0.0-1.5); BG OXYGEN SATURATION 78.6 % (92.0-98.5); BG OXYHEMOGLOBIN 77.5 % (94.0-97.0); BG PCO2 161.2 mmHg (35.0-45.0); BG PH 6.826 (7.350-7.450); BG PO2 66.3 mmHg (75.0-100.0); BG TOTAL HEMOGLOBIN 13.9 g/dL (12.0-18.0); BG VENT MODE MASK - BIPAP
[2021-10-26 04:00] LABS: HEPATITIS B SURFACE ANTIGEN NEGATIVE
[2021-10-26 04:03] LABS: BG BASE EXCESS -9.9 mmol/L (-2.0-2.0); BG DEOXYHEMOGLOBIN 0.3 % (0.0-5.0); BG FRACTION INSPIRED OXYGEN 100; BG HCO3 ACT 20.7 mmol/L (22.0-26.0); BG METHEMOGLOBIN 0.5 % (0.0-1.5); BG OXYGEN SATURATION 99.7 % (92.0-98.5); BG OXYHEMOGLOBIN 98.2 % (94.0-97.0); BG PCO2 69.8 mmHg (35.0-45.0); BG PH 7.089 (7.350-7.450); BG PO2 305.1 mmHg (75.0-100.0); BG SAMPLE SITE RIGHT RADIAL; BG TOTAL HEMOGLOBIN 11.9 g/dL (12.0-18.0); BG VENT MODE MASK - BIPAP
[2021-10-26 05:55] LABS: BG CARBOXYHEMOGLOBIN 1.1 % (0.5-1.5); BG DEOXYHEMOGLOBIN 0.8 % (0.0-5.0); BG FRACTION INSPIRED OXYGEN 60; BG HCO3 ACT 23.4 mmol/L (22.0-26.0); BG METHEMOGLOBIN 0.4 % (0.0-1.5); BG OXYGEN SATURATION 99.2 % (92.0-98.5); BG OXYHEMOGLOBIN 97.7 % (94.0-97.0); BG PCO2 71.6 mmHg (35.0-45.0); BG PH 7.132 (7.350-7.450); BG PO2 178.6 mmHg (75.0-100.0); BG SAMPLE SITE RIGHT RADIAL; BG TOTAL HEMOGLOBIN 13.4 g/dL (12.0-18.0); BG VENT MODE MASK - BIPAP
[2021-10-26] MEDS: GABAPENTIN 100MG CAPSULE PO SCH ×3 (06:31→21:45)
[2021-10-26] MEDS: BLOOD SUGAR DIAGNOSTIC STRIP TEST SCH ×4 (08:10→21:00)
[2021-10-26] MEDS: INSULIN LISPRO 100 UNITS/ML SUBCUT SCH ×5 (08:10→21:45)
[2021-10-26] MEDS: MIDODRINE HCL 5MG TABLET PO SCH ×3 (08:51→16:52)
[2021-10-26] MEDS: CINACALCET HCL 30MG TABLET PO SCH (08:51)
[2021-10-26] MEDS: LEVETIRACETAM 500MG TABLET PO SCH ×2 (08:51→21:45)
[2021-10-26] MEDS: FLUDROCORTISONE ACETATE 0.1MG TABLET PO SCH (08:52)
[2021-10-26] MEDS: METHIMAZOLE 5MG TABLET PO SCH (08:52)
[2021-10-26 10:42] LABS: BG BASE EXCESS -6.7 mmol/L (-2.0-2.0); BG CARBOXYHEMOGLOBIN 0.7 % (0.5-1.5); BG DEOXYHEMOGLOBIN 1.1 % (0.0-5.0); BG FRACTION INSPIRED OXYGEN 40; BG HCO3 ACT 22.9 mmol/L (22.0-26.0); BG METHEMOGLOBIN 0.1 % (0.0-1.5); BG OXYGEN SATURATION 98.9 % (92.0-98.5); BG OXYHEMOGLOBIN 98.1 % (94.0-97.0); BG PCO2 65.7 mmHg (35.0-45.0); BG PH 7.161 (7.350-7.450); BG PO2 160.3 mmHg (75.0-100.0); BG SAMPLE SITE RIGHT RADIAL; BG TOTAL HEMOGLOBIN 13.2 g/dL (12.0-18.0); BG VENT MODE MASK - BIPAP
[2021-10-26] MEDS: CEFEPIME 1,000 MG in DEXTROSE 5% WATER 50 ML IV SCH (14:38)
[2021-10-26 18:42] LABS: BG BASE EXCESS -4.5 mmol/L (-2.0-2.0); BG CARBOXYHEMOGLOBIN 0.9 % (0.5-1.5); BG DEOXYHEMOGLOBIN 1.8 % (0.0-5.0); BG FRACTION INSPIRED OXYGEN 30; BG HCO3 ACT 22.8 mmol/L (22.0-26.0); BG METHEMOGLOBIN 0.1 % (0.0-1.5); BG OXYGEN SATURATION 98.2 % (92.0-98.5); BG OXYHEMOGLOBIN 97.2 % (94.0-97.0); BG PCO2 50.7 mmHg (35.0-45.0); BG PO2 112.6 mmHg (75.0-100.0); BG SAMPLE SITE RIGHT RADIAL; BG TOTAL HEMOGLOBIN 12.9 g/dL (12.0-18.0); BG VENT MODE MASK - BIPAP
[2021-10-26 20:18] LABS: MEAN CORPUSCULAR HEMOGLOBIN 24.6 pg (28.0-32.0); MEAN CORPUSCULAR VOLUME 83.6 fL (81.0-99.0); MEAN PLATELET VOLUME 8.9 fl (7.4-10.4); PLATELET 55 x1000/uL (130-400); RED CELL DISTRIBUTION WIDTH 17.2 % (11.6-14.6)
[2021-10-26] MEDS: FAMOTIDINE 20MG TABLET PO SCH (21:44)
[2021-10-26] MEDS ORDERED: BLOOD SUGAR DIAGNOSTIC STRIP TEST SCH (21:45)
[2021-10-26] MEDS: NOREPINEPHRINE 32 MG in DEXT 5% WATER 218 ML IV PRN (21:51)
[2021-10-26 23:17] LABS: PLATELET ESTIMATE DECREASED
[2021-10-27] VITALS (104 sets, daily range): BP systolic 67–202; BP diastolic 35–149
[2021-10-27] MEDS: IPRATROPIUM/ALBUTEROL 0.5-3(2.5)MG/3ML NEB HHN SCH ×6 (00:47→23:41)
[2021-10-27] MEDS: INSULIN LISPRO 100 UNITS/ML SUBCUT SCH ×5 (01:56→18:00)
[2021-10-27 05:11] LABS: HEMATOCRIT. 39.2 % (36.0-48.0); MEAN CORPUSCULAR HEMOGLOBIN 24.8 pg (28.0-32.0); MEAN CORPUSCULAR VOLUME 81.3 fL (81.0-99.0); MEAN PLATELET VOLUME 9.3 fl (7.4-10.4); PLATELET 80 x1000/uL (130-400); RED BLOOD CELL COUNT 4.82 mill/uL (4.2-5.4); RED CELL DISTRIBUTION WIDTH 16.8 % (11.6-14.6)
[2021-10-27] MEDS: GABAPENTIN 100MG CAPSULE PO SCH ×3 (06:37→21:10)
[2021-10-27] MEDS: BLOOD SUGAR DIAGNOSTIC STRIP TEST SCH ×4 (06:37→18:27)
[2021-10-27 08:16] LABS: BG BASE EXCESS -3.4 mmol/L (-2.0-2.0); BG CARBOXYHEMOGLOBIN 0.7 % (0.5-1.5); BG DEOXYHEMOGLOBIN 1.8 % (0.0-5.0); BG FRACTION INSPIRED OXYGEN 30; BG HCO3 ACT 24.9 mmol/L (22.0-26.0); BG METHEMOGLOBIN 0.3 % (0.0-1.5); BG OXYGEN SATURATION 98.2 % (92.0-98.5); BG OXYHEMOGLOBIN 97.2 % (94.0-97.0); BG PCO2 60.2 mmHg (35.0-45.0); BG PH 7.235 (7.350-7.450); BG PO2 122.2 mmHg (75.0-100.0); BG SAMPLE SITE RIGHT RADIAL; BG TOTAL RESPIRATORY RATE 30 b/min; BG VENT MODE MASK - BIPAP
[2021-10-27] MEDS: LEVETIRACETAM 500MG TABLET PO SCH ×2 (08:35→21:12)
[2021-10-27] MEDS: CINACALCET HCL 30MG TABLET PO SCH (08:35)
[2021-10-27] MEDS: FLUDROCORTISONE ACETATE 0.1MG TABLET PO SCH (08:35)
[2021-10-27] MEDS: METHIMAZOLE 5MG TABLET PO SCH (08:35)
[2021-10-27] MEDS: MIDODRINE HCL 5MG TABLET PO SCH ×3 (08:36→17:06)
[2021-10-27] MEDS: CEFEPIME 1,000 MG in DEXTROSE 5% WATER 50 ML IV SCH (14:48)
[2021-10-27 17:51] LABS: PLATELET ESTIMATE DECREASED
[2021-10-27] MEDS: DEXT 5%/0.45% NACL 1000ML 1,000 ML IV SCH (18:38)
[2021-10-27] MEDS: FAMOTIDINE 20MG TABLET PO SCH (21:12)
[2021-10-27 22:48] LABS: BG BASE EXCESS -1.7 mmol/L (-2.0-2.0); BG CARBOXYHEMOGLOBIN 0.9 % (0.5-1.5); BG DEOXYHEMOGLOBIN 1.9 % (0.0-5.0); BG FRACTION INSPIRED OXYGEN 28; BG HCO3 ACT 25.4 mmol/L (22.0-26.0); BG METHEMOGLOBIN 0.3 % (0.0-1.5); BG OXYGEN SATURATION 98.1 % (92.0-98.5); BG OXYHEMOGLOBIN 96.9 % (94.0-97.0); BG PCO2 52.8 mmHg (35.0-45.0); BG PO2 105.9 mmHg (75.0-100.0); BG SAMPLE SITE RIGHT RADIAL; BG TOTAL HEMOGLOBIN 13.1 g/dL (12.0-18.0); BG VENT MODE MASK - NRB
[2021-10-28] VITALS (96 sets, daily range): BP systolic 79–162; BP diastolic 42–122
[2021-10-28] MEDS: BLOOD SUGAR DIAGNOSTIC STRIP TEST SCH ×5 (05:15→23:50)
[2021-10-28] MEDS: GABAPENTIN 100MG CAPSULE PO SCH ×3 (06:00→21:47)
[2021-10-28] MEDS: INSULIN LISPRO 100 UNITS/ML SUBCUT SCH ×5 (06:00→23:50)
[2021-10-28 06:23] LABS: HEMATOCRIT. 39.5 % (36.0-48.0); HEMOGLOBIN. 11.8 g/dL (12.0-16.0); MEAN CORPUSCULAR HEMOGLOBIN 23.9 pg (28.0-32.0); MEAN CORPUSCULAR VOLUME 79.8 fL (81.0-99.0); MEAN PLATELET VOLUME 8.6 fl (7.4-10.4); PLATELET 122 x1000/uL (130-400); RED BLOOD CELL COUNT 4.94 mill/uL (4.2-5.4); RED CELL DISTRIBUTION WIDTH 16.8 % (11.6-14.6)
[2021-10-28] MEDS: IPRATROPIUM/ALBUTEROL 0.5-3(2.5)MG/3ML NEB HHN SCH ×4 (08:50→20:43)
[2021-10-28] MEDS: LEVETIRACETAM 500MG TABLET PO SCH ×2 (09:23→21:47)
[2021-10-28] MEDS: FLUDROCORTISONE ACETATE 0.1MG TABLET PO SCH (09:23)
[2021-10-28] MEDS: METHIMAZOLE 5MG TABLET PO SCH (09:24)
[2021-10-28] MEDS: MIDODRINE HCL 5MG TABLET PO SCH ×3 (09:24→16:44)
[2021-10-28] MEDS: CINACALCET HCL 30MG TABLET PO SCH (09:24)
[2021-10-28] MEDS ORDERED: PROPOFOL 10MG/ML 100ML 100 ML IV PRN (10:00)
[2021-10-28 10:31] LABS: BG CARBOXYHEMOGLOBIN 0.7 % (0.5-1.5); BG DEOXYHEMOGLOBIN 1.3 % (0.0-5.0); BG FRACTION INSPIRED OXYGEN 28; BG HCO3 ACT 27.3 mmol/L (22.0-26.0); BG METHEMOGLOBIN 0.4 % (0.0-1.5); BG OXYGEN SATURATION 98.7 % (92.0-98.5); BG OXYHEMOGLOBIN 97.6 % (94.0-97.0); BG PCO2 56.2 mmHg (35.0-45.0); BG PH 7.304 (7.350-7.450); BG SAMPLE SITE RIGHT RADIAL; BG TOTAL HEMOGLOBIN 13.1 g/dL (12.0-18.0); BG TOTAL RESPIRATORY RATE 33 b/min; BG VENT MODE MASK - BIPAP
[2021-10-28 11:15] LABS: BG BASE EXCESS -1.4 mmol/L (-2.0-2.0); BG CARBOXYHEMOGLOBIN 0.2 % (0.5-1.5); BG DEOXYHEMOGLOBIN 0.7 % (0.0-5.0); BG FRACTION INSPIRED OXYGEN 50; BG HCO3 ACT 21.1 mmol/L (22.0-26.0); BG METHEMOGLOBIN 0.2 % (0.0-1.5); BG OXYGEN SATURATION 99.3 % (92.0-98.5); BG OXYHEMOGLOBIN 98.9 % (94.0-97.0); BG PO2 197.9 mmHg (75.0-100.0); BG SAMPLE SITE RIGHT RADIAL; BG VENT MODE VENT - AC
[2021-10-28] MEDS: DEXT 5%/0.45% NACL 1000ML 1,000 ML IV SCH (13:49)
[2021-10-28] MEDS: CEFEPIME 1,000 MG in DEXTROSE 5% WATER 50 ML IV SCH (14:01)
[2021-10-28 14:02] LABS: PLATELET ESTIMATE SLIGHTLY DECREASED
[2021-10-28] MEDS: FAMOTIDINE 20MG TABLET PO SCH (21:47)
[2021-10-28] MEDS: FENTANYL CITRATE/PF 2,500 MCG in SODIUM CHLORIDE 0.9% 200 ML IV PRN (22:06)
[2021-10-29] VITALS (95 sets, daily range): BP systolic 77–154; BP diastolic 50–109
[2021-10-29] MEDS: IPRATROPIUM/ALBUTEROL 0.5-3(2.5)MG/3ML NEB HHN SCH ×6 (00:22→20:40)
[2021-10-29] MEDS: BLOOD SUGAR DIAGNOSTIC STRIP TEST SCH ×3 (05:13→17:20)
[2021-10-29] MEDS: INSULIN LISPRO 100 UNITS/ML SUBCUT SCH ×3 (05:14→17:20)
[2021-10-29] MEDS: GABAPENTIN 100MG CAPSULE PO SCH ×3 (05:14→22:33)
[2021-10-29] MEDS: SENNOSIDES/DOCUSATE SOD 8.6/50MG TABLET PO PRN ×2 (05:14→22:33)
[2021-10-29] MEDS: FLUDROCORTISONE ACETATE 0.1MG TABLET PO SCH (08:29)
[2021-10-29] MEDS: METHIMAZOLE 5MG TABLET PO SCH (08:29)
[2021-10-29] MEDS: MIDODRINE HCL 5MG TABLET PO SCH ×3 (08:30→17:39)
[2021-10-29] MEDS: CINACALCET HCL 30MG TABLET PO SCH (08:30)
[2021-10-29] MEDS: LEVETIRACETAM 500MG TABLET PO SCH ×2 (08:32→22:33)
[2021-10-29 08:52] LABS: BASOPHILS % 0.6 % (0.0-2.0); EOSINOPHILS % 2.5 % (0.0-5.0); HEMATOCRIT. 36.4 % (36.0-48.0); HEMOGLOBIN. 11.4 g/dL (12.0-16.0); LYMPHOCYTES % 7.5 % (20.0-50.0); MEAN CORPUSCULAR HEMOGLOBIN 24.8 pg (28.0-32.0); MEAN CORPUSCULAR VOLUME 79.1 fL (81.0-99.0); MEAN PLATELET VOLUME 8.4 fl (7.4-10.4); MONOCYTES % 5.1 % (2.0-8.0); NEUTROPHILS % 84.3 % (40.0-76.0); PLATELET 143 x1000/uL (130-400); RED CELL DISTRIBUTION WIDTH 16.6 % (11.6-14.6)
[2021-10-29 09:26] LABS: BG BASE EXCESS 1.1 mmol/L (-2.0-2.0); BG CARBOXYHEMOGLOBIN 0.2 % (0.5-1.5); BG DEOXYHEMOGLOBIN 6.2 % (0.0-5.0); BG FRACTION INSPIRED OXYGEN 35; BG HCO3 ACT 24.3 mmol/L (22.0-26.0); BG OXYGEN SATURATION 93.8 % (92.0-98.5); BG OXYHEMOGLOBIN 93.6 % (94.0-97.0); BG PCO2 33.8 mmHg (35.0-45.0); BG PH 7.474 (7.350-7.450); BG PO2 68.8 mmHg (75.0-100.0); BG SAMPLE SITE RIGHT RADIAL; BG TOTAL HEMOGLOBIN 12.3 g/dL (12.0-18.0); BG VENT MODE VENT - AC/VC
[2021-10-29] MEDS: DEXT 5%/0.45% NACL 1000ML 1,000 ML IV SCH (11:22)
[2021-10-29] MEDS: NOREPINEPHRINE 32 MG in DEXT 5% WATER 218 ML IV PRN (12:57)
[2021-10-29 13:50] LABS: HEPATITIS B SURFACE ANTIGEN NEGATIVE
[2021-10-29] MEDS: CEFEPIME 1,000 MG in DEXTROSE 5% WATER 50 ML IV SCH (15:10)
[2021-10-29] MEDS: FAMOTIDINE 20MG TABLET PO SCH (22:33)
[2021-10-30] VITALS (88 sets, daily range): BP systolic 80–127; BP diastolic 47–81
[2021-10-30] MEDS: IPRATROPIUM/ALBUTEROL 0.5-3(2.5)MG/3ML NEB HHN SCH ×6 (00:45→20:18)
[2021-10-30] MEDS: INSULIN LISPRO 100 UNITS/ML SUBCUT SCH ×4 (06:00→18:00)
[2021-10-30 06:02] LABS: HEMATOCRIT. 35.9 % (36.0-48.0); HEMOGLOBIN. 11.1 g/dL (12.0-16.0); MEAN CORPUSCULAR HEMOGLOBIN 24.3 pg (28.0-32.0); MEAN CORPUSCULAR VOLUME 78.4 fL (81.0-99.0); MEAN PLATELET VOLUME 8.1 fl (7.4-10.4); PLATELET 143 x1000/uL (130-400); RED BLOOD CELL COUNT 4.58 mill/uL (4.2-5.4); RED CELL DISTRIBUTION WIDTH 16.4 % (11.6-14.6)
[2021-10-30] MEDS: GABAPENTIN 100MG CAPSULE PO SCH ×3 (06:34→22:36)
[2021-10-30] MEDS: BLOOD SUGAR DIAGNOSTIC STRIP TEST SCH ×4 (06:34→18:45)
[2021-10-30] MEDS: DEXT 5%/0.45% NACL 1000ML 1,000 ML IV SCH (06:34)
[2021-10-30] MEDS: LEVETIRACETAM 500MG TABLET PO SCH ×2 (08:06→22:36)
[2021-10-30] MEDS: CINACALCET HCL 30MG TABLET PO SCH (08:07)
[2021-10-30] MEDS: MIDODRINE HCL 5MG TABLET PO SCH ×3 (08:07→18:53)
[2021-10-30] MEDS: FLUDROCORTISONE ACETATE 0.1MG TABLET PO SCH (08:08)
[2021-10-30] MEDS: METHIMAZOLE 5MG TABLET PO SCH (08:13)
[2021-10-30 09:01] LABS: BG BASE EXCESS 3.8 mmol/L (-2.0-2.0); BG CARBOXYHEMOGLOBIN 0.9 % (0.5-1.5); BG DEOXYHEMOGLOBIN 1.4 % (0.0-5.0); BG FRACTION INSPIRED OXYGEN 35; BG HCO3 ACT 24.1 mmol/L (22.0-26.0); BG METHEMOGLOBIN 0.3 % (0.0-1.5); BG OXYGEN SATURATION 98.6 % (92.0-98.5); BG OXYHEMOGLOBIN 97.4 % (94.0-97.0); BG PCO2 24.5 mmHg (35.0-45.0); BG PH 7.611 (7.350-7.450); BG PO2 104.8 mmHg (75.0-100.0); BG SAMPLE SITE RIGHT RADIAL; BG TOTAL HEMOGLOBIN 11.8 g/dL (12.0-18.0); BG TOTAL RESPIRATORY RATE 20 b/min; BG VENT MODE VENT - AC
[2021-10-30] MEDS ORDERED: POTASSIUM CHLORIDE 20MEQ/PACKET PO NR (10:00)
[2021-10-30 15:28] LABS: PLATELET ESTIMATE NORMAL
[2021-10-30] MEDS: FAMOTIDINE 20MG TABLET PO SCH (22:36)
[2021-10-30] MEDS: SENNOSIDES/DOCUSATE SOD 8.6/50MG TABLET PO PRN (22:36)
[2021-10-31] VITALS (102 sets, daily range): BP systolic 70–239; BP diastolic 43–151
[2021-10-31] MEDS: IPRATROPIUM/ALBUTEROL 0.5-3(2.5)MG/3ML NEB HHN SCH ×6 (00:09→20:29)
[2021-10-31] MEDS: BLOOD SUGAR DIAGNOSTIC STRIP TEST SCH ×4 (00:30→17:59)
[2021-10-31] MEDS: DEXT 5%/0.45% NACL 1000ML 1,000 ML IV SCH ×2 (01:59→21:37)
[2021-10-31] MEDS: INSULIN LISPRO 100 UNITS/ML SUBCUT SCH ×4 (06:00→18:00)
[2021-10-31] MEDS: GABAPENTIN 100MG CAPSULE PO SCH ×3 (06:13→21:36)
[2021-10-31 06:47] LABS: BASOPHILS % 0.7 % (0.0-2.0); EOSINOPHILS % 2.7 % (0.0-5.0); HEMATOCRIT. 35.9 % (36.0-48.0); HEMOGLOBIN. 11.1 g/dL (12.0-16.0); LYMPHOCYTES % 8.9 % (20.0-50.0); MEAN CORPUSCULAR HEMOGLOBIN 24.1 pg (28.0-32.0); MEAN CORPUSCULAR VOLUME 78.1 fL (81.0-99.0); MONOCYTES % 6.1 % (2.0-8.0); NEUTROPHILS % 81.6 % (40.0-76.0); PLATELET 151 x1000/uL (130-400); RED CELL DISTRIBUTION WIDTH 16.8 % (11.6-14.6)
[2021-10-31] MEDS: METHIMAZOLE 5MG TABLET PO SCH (08:58)
[2021-10-31] MEDS: MIDODRINE HCL 5MG TABLET PO SCH ×3 (08:58→18:18)
[2021-10-31] MEDS: LEVETIRACETAM 500MG TABLET PO SCH ×2 (08:58→21:36)
[2021-10-31] MEDS: CINACALCET HCL 30MG TABLET PO SCH (08:58)
[2021-10-31] MEDS: FLUDROCORTISONE ACETATE 0.1MG TABLET PO SCH (08:58)
[2021-10-31 09:02] LABS: BG BASE EXCESS 2.9 mmol/L (-2.0-2.0); BG CARBOXYHEMOGLOBIN 0.6 % (0.5-1.5); BG DEOXYHEMOGLOBIN 1.3 % (0.0-5.0); BG FRACTION INSPIRED OXYGEN 35; BG METHEMOGLOBIN 0.3 % (0.0-1.5); BG OXYGEN SATURATION 98.7 % (92.0-98.5); BG OXYHEMOGLOBIN 97.8 % (94.0-97.0); BG PCO2 34.7 mmHg (35.0-45.0); BG PH 7.492 (7.350-7.450); BG PO2 131.3 mmHg (75.0-100.0); BG SAMPLE SITE RIGHT RADIAL; BG TOTAL HEMOGLOBIN 11.9 g/dL (12.0-18.0); BG VENT MODE VENT - AC
[2021-10-31] MEDS: NOREPINEPHRINE 32 MG in DEXT 5% WATER 218 ML IV PRN (11:11)
[2021-10-31] MEDS: FENTANYL CITRATE/PF 2,500 MCG in SODIUM CHLORIDE 0.9% 200 ML IV PRN (11:26)
[2021-10-31] MEDS: SENNOSIDES/DOCUSATE SOD 8.6/50MG TABLET PO PRN (21:36)
[2021-10-31] MEDS: FAMOTIDINE 20MG TABLET PO SCH (21:36)
[2021-11-01] VITALS (92 sets, daily range): BP systolic 62–196; BP diastolic 37–107
[2021-11-01] MEDS: IPRATROPIUM/ALBUTEROL 0.5-3(2.5)MG/3ML NEB HHN SCH ×6 (00:29→20:14)
[2021-11-01] MEDS: BLOOD SUGAR DIAGNOSTIC STRIP TEST SCH ×4 (05:22→17:12)
[2021-11-01] MEDS: INSULIN LISPRO 100 UNITS/ML SUBCUT SCH ×4 (05:26→17:12)
[2021-11-01] MEDS: GABAPENTIN 100MG CAPSULE PO SCH ×3 (06:19→21:33)
[2021-11-01 06:47] LABS: HEMATOCRIT. 35.5 % (36.0-48.0); HEMOGLOBIN. 10.6 g/dL (12.0-16.0); MEAN CORPUSCULAR HEMOGLOBIN 23.9 pg (28.0-32.0); MEAN PLATELET VOLUME 8.6 fl (7.4-10.4); PLATELET 168 x1000/uL (130-400); RED BLOOD CELL COUNT 4.43 mill/uL (4.2-5.4); RED CELL DISTRIBUTION WIDTH 16.9 % (11.6-14.6)
[2021-11-01] MEDS: METHIMAZOLE 5MG TABLET PO SCH (08:31)
[2021-11-01] MEDS: CINACALCET HCL 30MG TABLET PO SCH (08:31)
[2021-11-01] MEDS: MIDODRINE HCL 5MG TABLET PO SCH ×3 (08:31→17:15)
[2021-11-01] MEDS: FLUDROCORTISONE ACETATE 0.1MG TABLET PO SCH (08:31)
[2021-11-01] MEDS: LEVETIRACETAM 500MG TABLET PO SCH ×2 (08:32→21:33)
[2021-11-01] MEDS ORDERED: MORPHINE SULFATE 2 MG/ML CPJ (NOT FOR IM USE) IV PRN (08:45)
[2021-11-01 10:32] LABS: BG BASE EXCESS 4.6 mmol/L (-2.0-2.0); BG CARBOXYHEMOGLOBIN 0.6 % (0.5-1.5); BG DEOXYHEMOGLOBIN 1.8 % (0.0-5.0); BG FRACTION INSPIRED OXYGEN 35; BG HCO3 ACT 30.5 mmol/L (22.0-26.0); BG METHEMOGLOBIN 0.4 % (0.0-1.5); BG OXYGEN SATURATION 98.2 % (92.0-98.5); BG OXYHEMOGLOBIN 97.2 % (94.0-97.0); BG PCO2 51.2 mmHg (35.0-45.0); BG PH 7.393 (7.350-7.450); BG SAMPLE SITE RIGHT RADIAL; BG TOTAL HEMOGLOBIN 12.4 g/dL (12.0-18.0); BG VENT MODE VENT - AC
[2021-11-01] MEDS ORDERED: ALTEPLASE 2MG/VIAL ITC NR (12:30)
[2021-11-01 16:47] LABS: HEPATITIS B SURFACE ANTIGEN NEGATIVE
[2021-11-01] MEDS: DEXT 5%/0.45% NACL 1000ML 1,000 ML IV SCH ×2 (17:12→21:32)
[2021-11-01] MEDS: FAMOTIDINE 20MG TABLET PO SCH (21:33)
[2021-11-02] VITALS (86 sets, daily range): BP systolic 77–158; BP diastolic 41–100
[2021-11-02] MEDS: IPRATROPIUM/ALBUTEROL 0.5-3(2.5)MG/3ML NEB HHN SCH ×6 (00:32→21:01)
[2021-11-02] MEDS: INSULIN LISPRO 100 UNITS/ML SUBCUT SCH ×4 (00:59→17:37)
[2021-11-02 01:19] LABS: PLATELET ESTIMATE NORMAL
[2021-11-02 06:29] LABS: BASOPHILS % 0.6 % (0.0-2.0); EOSINOPHILS % 2.9 % (0.0-5.0); HEMATOCRIT. 32.8 % (36.0-48.0); HEMOGLOBIN. 9.8 g/dL (12.0-16.0); LYMPHOCYTES % 7.8 % (20.0-50.0); MEAN CORPUSCULAR HEMOGLOBIN 23.8 pg (28.0-32.0); MEAN CORPUSCULAR VOLUME 79.8 fL (81.0-99.0); MEAN PLATELET VOLUME 8.3 fl (7.4-10.4); MONOCYTES % 6.8 % (2.0-8.0); NEUTROPHILS % 81.9 % (40.0-76.0); PLATELET 157 x1000/uL (130-400); RED BLOOD CELL COUNT 4.11 mill/uL (4.2-5.4); RED CELL DISTRIBUTION WIDTH 16.6 % (11.6-14.6)
[2021-11-02] MEDS: BLOOD SUGAR DIAGNOSTIC STRIP TEST SCH ×4 (06:47→17:36)
[2021-11-02] MEDS: GABAPENTIN 100MG CAPSULE PO SCH ×3 (06:47→21:45)
[2021-11-02 07:29] LABS: BG BASE EXCESS 1.1 mmol/L (-2.0-2.0); BG CARBOXYHEMOGLOBIN 0.2 % (0.5-1.5); BG DEOXYHEMOGLOBIN 1.2 % (0.0-5.0); BG HCO3 ACT 26.5 mmol/L (22.0-26.0); BG METHEMOGLOBIN 0.6 % (0.0-1.5); BG OXYGEN SATURATION 98.8 % (92.0-98.5); BG PCO2 46.1 mmHg (35.0-45.0); BG PH 7.378 (7.350-7.450); BG PO2 127.6 mmHg (75.0-100.0); BG SAMPLE SITE RIGHT RADIAL; BG TOTAL HEMOGLOBIN 10.3 g/dL (12.0-18.0); BG VENT MODE VENT - AC
[2021-11-02] MEDS: FLUDROCORTISONE ACETATE 0.1MG TABLET PO SCH (09:47)
[2021-11-02] MEDS: CINACALCET HCL 30MG TABLET PO SCH (09:47)
[2021-11-02] MEDS: LEVETIRACETAM 500MG TABLET PO SCH ×2 (09:48→21:45)
[2021-11-02] MEDS: METHIMAZOLE 5MG TABLET PO SCH (09:48)
[2021-11-02] MEDS: MIDODRINE HCL 5MG TABLET PO SCH ×3 (09:48→17:37)
[2021-11-02] MEDS: FAMOTIDINE 20MG TABLET PO SCH (21:45)
[2021-11-03] VITALS (61 sets, daily range): BP systolic 96–161; BP diastolic 47–86
[2021-11-03] MEDS: BLOOD SUGAR DIAGNOSTIC STRIP TEST SCH ×4 (00:27→18:22)
[2021-11-03] MEDS: IPRATROPIUM/ALBUTEROL 0.5-3(2.5)MG/3ML NEB HHN SCH ×6 (01:20→21:11)
[2021-11-03] MEDS: DEXT 5%/0.45% NACL 1000ML 1,000 ML IV SCH (06:00)
[2021-11-03] MEDS: GABAPENTIN 100MG CAPSULE PO SCH ×3 (06:19→21:34)
[2021-11-03] MEDS: NOREPINEPHRINE 32 MG in DEXT 5% WATER 218 ML IV PRN (06:21)
[2021-11-03 07:07] LABS: HEMATOCRIT. 30.4 % (36.0-48.0); HEMOGLOBIN. 9.5 g/dL (12.0-16.0); MEAN CORPUSCULAR VOLUME 80.1 fL (81.0-99.0); MEAN PLATELET VOLUME 8.8 fl (7.4-10.4); PLATELET 162 x1000/uL (130-400); RED BLOOD CELL COUNT 3.79 mill/uL (4.2-5.4); RED CELL DISTRIBUTION WIDTH 16.5 % (11.6-14.6)
[2021-11-03] MEDS: INSULIN LISPRO 100 UNITS/ML SUBCUT SCH ×4 (07:24→18:00)
[2021-11-03] MEDS: LEVETIRACETAM 500MG TABLET PO SCH ×2 (09:29→21:34)
[2021-11-03] MEDS: METHIMAZOLE 5MG TABLET PO SCH (09:29)
[2021-11-03] MEDS: MIDODRINE HCL 5MG TABLET PO SCH ×3 (09:29→17:46)
[2021-11-03] MEDS: CINACALCET HCL 30MG TABLET PO SCH (09:30)
[2021-11-03] MEDS: FLUDROCORTISONE ACETATE 0.1MG TABLET PO SCH (09:30)
[2021-11-03 09:35] LABS: BG BASE EXCESS 0.6 mmol/L (-2.0-2.0); BG CARBOXYHEMOGLOBIN 0.3 % (0.5-1.5); BG DEOXYHEMOGLOBIN 1.3 % (0.0-5.0); BG FRACTION INSPIRED OXYGEN 35; BG METHEMOGLOBIN 0.4 % (0.0-1.5); BG OXYGEN SATURATION 98.7 % (92.0-98.5); BG PCO2 45.3 mmHg (35.0-45.0); BG PH 7.377 (7.350-7.450); BG PO2 143.4 mmHg (75.0-100.0); BG SAMPLE SITE RIGHT RADIAL; BG TOTAL HEMOGLOBIN 10.6 g/dL (12.0-18.0); BG TOTAL RESPIRATORY RATE 12 b/min; BG VENT MODE VENT - AC
[2021-11-03] MEDS ORDERED: NALOXONE HCL 0.4MG/ML VIAL IV PRN (18:15)
[2021-11-03] MEDS ORDERED: EPOETIN ALFA-EPBX 4,000 UNIT/ML VIAL SUBCUT NR (21:00)
[2021-11-03] MEDS: FAMOTIDINE 20MG TABLET PO SCH (21:34)
[2021-11-04] VITALS (66 sets, daily range): BP systolic 98–201; BP diastolic 52–107
[2021-11-04] MEDS: IPRATROPIUM/ALBUTEROL 0.5-3(2.5)MG/3ML NEB HHN SCH ×6 (00:20→20:22)
[2021-11-04] MEDS: BLOOD SUGAR DIAGNOSTIC STRIP TEST SCH ×4 (00:22→18:16)
[2021-11-04] MEDS: DEXT 5%/0.45% NACL 1000ML 1,000 ML IV SCH ×2 (00:23→21:29)
[2021-11-04] MEDS: INSULIN LISPRO 100 UNITS/ML SUBCUT SCH ×4 (06:00→18:00)
[2021-11-04 06:15] LABS: HEMATOCRIT. 29.1 % (36.0-48.0); MEAN CORPUSCULAR HEMOGLOBIN 24.9 pg (28.0-32.0); MEAN CORPUSCULAR VOLUME 80.7 fL (81.0-99.0); MEAN PLATELET VOLUME 8.9 fl (7.4-10.4); PLATELET 164 x1000/uL (130-400); RED CELL DISTRIBUTION WIDTH 16.7 % (11.6-14.6)
[2021-11-04] MEDS: GABAPENTIN 100MG CAPSULE PO SCH ×3 (06:40→21:06)
[2021-11-04 06:48] LABS: PLATELET ESTIMATE NORMAL
[2021-11-04] MEDS: MIDODRINE HCL 5MG TABLET PO SCH ×3 (08:07→18:17)
[2021-11-04] MEDS: FLUDROCORTISONE ACETATE 0.1MG TABLET PO SCH (08:08)
[2021-11-04] MEDS: METHIMAZOLE 5MG TABLET PO SCH (08:08)
[2021-11-04] MEDS: LEVETIRACETAM 500MG TABLET PO SCH ×2 (08:08→21:06)
[2021-11-04] MEDS: CINACALCET HCL 30MG TABLET PO SCH (08:08)
[2021-11-04 09:33] LABS: BG BASE EXCESS -0.9 mmol/L (-2.0-2.0); BG CARBOXYHEMOGLOBIN 0.1 % (0.5-1.5); BG DEOXYHEMOGLOBIN 1.2 % (0.0-5.0); BG FRACTION INSPIRED OXYGEN 35; BG HCO3 ACT 24.7 mmol/L (22.0-26.0); BG METHEMOGLOBIN 0.4 % (0.0-1.5); BG OXYGEN SATURATION 98.8 % (92.0-98.5); BG OXYHEMOGLOBIN 98.3 % (94.0-97.0); BG PCO2 45.2 mmHg (35.0-45.0); BG PH 7.356 (7.350-7.450); BG PO2 144.2 mmHg (75.0-100.0); BG SAMPLE SITE RIGHT RADIAL; BG TOTAL HEMOGLOBIN 9.5 g/dL (12.0-18.0); BG VENT MODE VENT - AC
[2021-11-04 14:07] LABS: PLATELET ESTIMATE NORMAL
[2021-11-04 18:59] LABS: HEPATITIS B SURFACE ANTIGEN NEGATIVE
[2021-11-04] MEDS: FAMOTIDINE 20MG TABLET PO SCH (21:06)
[2021-11-04 22:47] LABS: VITAMIN B12 SERUM 727 pg/mL (211-911)
[2021-11-05] VITALS (58 sets, daily range): BP systolic 110–149; BP diastolic 53–102
[2021-11-05] MEDS: IPRATROPIUM/ALBUTEROL 0.5-3(2.5)MG/3ML NEB HHN SCH ×7 (00:19→23:51)
[2021-11-05] MEDS: GABAPENTIN 100MG CAPSULE PO SCH ×3 (05:42→22:10)
[2021-11-05] MEDS: INSULIN LISPRO 100 UNITS/ML SUBCUT SCH ×3 (06:00→12:00)
[2021-11-05 06:33] LABS: BASOPHILS % 1.3 % (0.0-2.0); EOSINOPHILS % 3.7 % (0.0-5.0); HEMOGLOBIN. 9.5 g/dL (12.0-16.0); LYMPHOCYTES % 8.3 % (20.0-50.0); MEAN CORPUSCULAR HEMOGLOBIN 25.1 pg (28.0-32.0); MEAN CORPUSCULAR VOLUME 79.5 fL (81.0-99.0); MEAN PLATELET VOLUME 9.1 fl (7.4-10.4); MONOCYTES % 6.1 % (2.0-8.0); NEUTROPHILS % 80.6 % (40.0-76.0); PLATELET 222 x1000/uL (130-400); RED BLOOD CELL COUNT 3.77 mill/uL (4.2-5.4); RED CELL DISTRIBUTION WIDTH 16.5 % (11.6-14.6)
[2021-11-05] MEDS: BLOOD SUGAR DIAGNOSTIC STRIP TEST SCH ×3 (06:44→12:28)
[2021-11-05] MEDS: LEVETIRACETAM 500MG TABLET PO SCH ×2 (08:29→22:10)
[2021-11-05] MEDS: METHIMAZOLE 5MG TABLET PO SCH (08:29)
[2021-11-05] MEDS: CINACALCET HCL 30MG TABLET PO SCH (08:29)
[2021-11-05] MEDS: FLUDROCORTISONE ACETATE 0.1MG TABLET PO SCH (08:30)
[2021-11-05] MEDS: MIDODRINE HCL 5MG TABLET PO SCH ×3 (08:32→16:32)
[2021-11-05 09:57] LABS: BG BASE EXCESS -1.5 mmol/L (-2.0-2.0); BG CARBOXYHEMOGLOBIN 0.1 % (0.5-1.5); BG FRACTION INSPIRED OXYGEN 35; BG HCO3 ACT 21.4 mmol/L (22.0-26.0); BG METHEMOGLOBIN 0.3 % (0.0-1.5); BG OXYHEMOGLOBIN 98.6 % (94.0-97.0); BG PCO2 29.4 mmHg (35.0-45.0); BG PH 7.479 (7.350-7.450); BG PO2 136.9 mmHg (75.0-100.0); BG SAMPLE SITE RIGHT RADIAL; BG VENT MODE VENT - AC
[2021-11-05] MEDS: SENNOSIDES/DOCUSATE SOD 8.6/50MG TABLET PO PRN (22:10)
[2021-11-05] MEDS: FAMOTIDINE 20MG TABLET PO SCH (22:10)
[2021-11-06] VITALS (44 sets, daily range): BP systolic 95–158; BP diastolic 43–89
[2021-11-06] MEDS: IPRATROPIUM/ALBUTEROL 0.5-3(2.5)MG/3ML NEB HHN SCH ×5 (03:13→20:02)
[2021-11-06] MEDS: GABAPENTIN 100MG CAPSULE PO SCH ×4 (05:17→22:22)
[2021-11-06 07:28] LABS: HEMATOCRIT. 28.7 % (36.0-48.0); MEAN CORPUSCULAR HEMOGLOBIN 25.3 pg (28.0-32.0); MEAN CORPUSCULAR VOLUME 80.4 fL (81.0-99.0); MEAN PLATELET VOLUME 9.2 fl (7.4-10.4); PLATELET 203 x1000/uL (130-400); RED BLOOD CELL COUNT 3.57 mill/uL (4.2-5.4); RED CELL DISTRIBUTION WIDTH 16.4 % (11.6-14.6)
[2021-11-06 08:43] LABS: BG BASE EXCESS -1.8 mmol/L (-2.0-2.0); BG CARBOXYHEMOGLOBIN 0.3 % (0.5-1.5); BG DEOXYHEMOGLOBIN 1.2 % (0.0-5.0); BG FRACTION INSPIRED OXYGEN 30; BG HCO3 ACT 22.5 mmol/L (22.0-26.0); BG METHEMOGLOBIN 0.4 % (0.0-1.5); BG OXYGEN SATURATION 98.8 % (92.0-98.5); BG OXYHEMOGLOBIN 98.1 % (94.0-97.0); BG PCO2 36.4 mmHg (35.0-45.0); BG PH 7.409 (7.350-7.450); BG SAMPLE SITE RIGHT RADIAL; BG TOTAL HEMOGLOBIN 9.6 g/dL (12.0-18.0); BG TOTAL RESPIRATORY RATE 12 b/min; BG VENT MODE VENT - AC
[2021-11-06] MEDS: CINACALCET HCL 30MG TABLET PO SCH (09:13)
[2021-11-06] MEDS: METHIMAZOLE 5MG TABLET PO SCH (09:13)
[2021-11-06] MEDS: LEVETIRACETAM 500MG TABLET PO SCH ×2 (09:13→22:22)
[2021-11-06] MEDS: MIDODRINE HCL 5MG TABLET PO SCH ×3 (09:13→17:42)
[2021-11-06] MEDS: DEXT 5%/0.45% NACL 1000ML 1,000 ML IV SCH ×2 (13:50→19:00)
[2021-11-06 15:34] LABS: PLATELET ESTIMATE NORMAL
[2021-11-06 17:39] LABS: BG BASE EXCESS -2.8 mmol/L (-2.0-2.0); BG CARBOXYHEMOGLOBIN 0.1 % (0.5-1.5); BG FRACTION INSPIRED OXYGEN 30; BG HCO3 ACT 23.1 mmol/L (22.0-26.0); BG METHEMOGLOBIN 0.4 % (0.0-1.5); BG OXYHEMOGLOBIN 96.5 % (94.0-97.0); BG PCO2 44.8 mmHg (35.0-45.0); BG PO2 98.6 mmHg (75.0-100.0); BG SAMPLE SITE RIGHT RADIAL; BG TOTAL HEMOGLOBIN 10.4 g/dL (12.0-18.0); BG TOTAL RESPIRATORY RATE 10 b/min; BG VENT MODE VENT - SIMV
[2021-11-06] MEDS: FAMOTIDINE 20MG TABLET PO SCH (22:22)
[2021-11-07] VITALS (41 sets, daily range): BP systolic 91–164; BP diastolic 45–90
[2021-11-07] MEDS ORDERED: HEPARIN SODIUM 1,000 UNIT/1ML VIAL IV SCH (00:30)
[2021-11-07] MEDS: IPRATROPIUM/ALBUTEROL 0.5-3(2.5)MG/3ML NEB HHN SCH ×6 (04:02→20:38)
[2021-11-07] MEDS: GABAPENTIN 100MG CAPSULE PO SCH ×3 (05:06→21:08)
[2021-11-07 09:01] LABS: BG BASE EXCESS -4.3 mmol/L (-2.0-2.0); BG CARBOXYHEMOGLOBIN 0.3 % (0.5-1.5); BG DEOXYHEMOGLOBIN 1.5 % (0.0-5.0); BG FRACTION INSPIRED OXYGEN 30; BG METHEMOGLOBIN 0.3 % (0.0-1.5); BG OXYGEN SATURATION 98.5 % (92.0-98.5); BG OXYHEMOGLOBIN 97.9 % (94.0-97.0); BG PCO2 52.6 mmHg (35.0-45.0); BG PH 7.259 (7.350-7.450); BG SAMPLE SITE RIGHT RADIAL; BG TOTAL HEMOGLOBIN 10.8 g/dL (12.0-18.0); BG VENT MODE VENT - SIMV
[2021-11-07] MEDS: METHIMAZOLE 5MG TABLET PO SCH (09:01)
[2021-11-07] MEDS: CINACALCET HCL 30MG TABLET PO SCH (09:01)
[2021-11-07] MEDS: MIDODRINE HCL 5MG TABLET PO SCH ×3 (09:02→17:10)
[2021-11-07] MEDS: LEVETIRACETAM 500MG TABLET PO SCH ×2 (09:02→21:08)
[2021-11-07 11:12] LABS: HEMATOCRIT. 31.8 % (36.0-48.0); HEMOGLOBIN. 9.6 g/dL (12.0-16.0); MEAN CORPUSCULAR HEMOGLOBIN 24.6 pg (28.0-32.0); MEAN CORPUSCULAR VOLUME 81.6 fL (81.0-99.0); MEAN PLATELET VOLUME 8.1 fl (7.4-10.4); PLATELET 264 x1000/uL (130-400); RED CELL DISTRIBUTION WIDTH 16.8 % (11.6-14.6)
[2021-11-07 12:10] LABS: BG BASE EXCESS -4.7 mmol/L (-2.0-2.0); BG CARBOXYHEMOGLOBIN 0.3 % (0.5-1.5); BG DEOXYHEMOGLOBIN 3.7 % (0.0-5.0); BG FRACTION INSPIRED OXYGEN 30; BG HCO3 ACT 23.7 mmol/L (22.0-26.0); BG METHEMOGLOBIN 0.2 % (0.0-1.5); BG OXYGEN SATURATION 96.3 % (92.0-98.5); BG OXYHEMOGLOBIN 95.8 % (94.0-97.0); BG PCO2 61.2 mmHg (35.0-45.0); BG PH 7.206 (7.350-7.450); BG PO2 97.5 mmHg (75.0-100.0); BG SAMPLE SITE RIGHT RADIAL; BG TOTAL HEMOGLOBIN 10.8 g/dL (12.0-18.0); BG VENT MODE VENT - CPAP
[2021-11-07 14:51] LABS: PLATELET ESTIMATE NORMAL
[2021-11-07] MEDS: DEXT 5%/0.45% NACL 1000ML 1,000 ML IV SCH (16:23)
[2021-11-07] MEDS: FAMOTIDINE 20MG TABLET PO SCH (21:08)
[2021-11-08] VITALS (24 sets, daily range): BP systolic 100–161; BP diastolic 51–85
[2021-11-08] MEDS: IPRATROPIUM/ALBUTEROL 0.5-3(2.5)MG/3ML NEB HHN SCH ×6 (00:21→20:27)
[2021-11-08] MEDS: GABAPENTIN 100MG CAPSULE PO SCH ×3 (05:59→21:49)
[2021-11-08] MEDS: CINACALCET HCL 30MG TABLET PO SCH (08:39)
[2021-11-08] MEDS: METHIMAZOLE 5MG TABLET PO SCH (08:39)
[2021-11-08] MEDS: LEVETIRACETAM 500MG TABLET PO SCH ×2 (08:39→21:49)
[2021-11-08] MEDS: MIDODRINE HCL 5MG TABLET PO SCH ×3 (08:41→18:14)
[2021-11-08] MEDS: DEXT 5%/0.45% NACL 1000ML 1,000 ML IV SCH (12:33)
[2021-11-08] MEDS: GUAIFENESIN 200MG/10ML SUGAR FREE UDC PO SCH ×2 (13:58→18:13)
[2021-11-08] MEDS: ACETYLCYSTEINE 100MG/ML 10% VIAL 4ML INH SCH ×2 (13:59→16:21)
[2021-11-08] MEDS: FAMOTIDINE 20MG TABLET PO SCH (21:49)
[2021-11-08 22:58] LABS: HEPATITIS B SURFACE ANTIGEN NEGATIVE
[2021-11-09] VITALS (27 sets, daily range): BP systolic 107–155; BP diastolic 57–93
[2021-11-09] MEDS: GUAIFENESIN 200MG/10ML SUGAR FREE UDC PO SCH ×5 (00:07→23:46)
[2021-11-09] MEDS: IPRATROPIUM/ALBUTEROL 0.5-3(2.5)MG/3ML NEB HHN SCH ×6 (00:09→19:50)
[2021-11-09] MEDS: ACETYLCYSTEINE 100MG/ML 10% VIAL 4ML INH SCH ×3 (00:10→12:19)
[2021-11-09] MEDS: DEXT 5%/0.45% NACL 1000ML 1,000 ML IV SCH (05:48)
[2021-11-09] MEDS: GABAPENTIN 100MG CAPSULE PO SCH ×3 (07:26→21:20)
[2021-11-09 09:40] LABS: BG BASE EXCESS -4.4 mmol/L (-2.0-2.0); BG CARBOXYHEMOGLOBIN 0.1 % (0.5-1.5); BG FRACTION INSPIRED OXYGEN 35; BG HCO3 ACT 21.8 mmol/L (22.0-26.0); BG METHEMOGLOBIN 0.3 % (0.0-1.5); BG OXYHEMOGLOBIN 98.6 % (94.0-97.0); BG PCO2 45.3 mmHg (35.0-45.0); BG PH 7.301 (7.350-7.450); BG PO2 151.2 mmHg (75.0-100.0); BG SAMPLE SITE RIGHT RADIAL; BG TOTAL HEMOGLOBIN 9.9 g/dL (12.0-18.0); BG VENT MODE VENT - AC
[2021-11-09] MEDS: LEVETIRACETAM 500MG TABLET PO SCH ×2 (09:45→21:20)
[2021-11-09] MEDS: METHIMAZOLE 5MG TABLET PO SCH (09:45)
[2021-11-09] MEDS: CINACALCET HCL 30MG TABLET PO SCH (09:45)
[2021-11-09] MEDS: MIDODRINE HCL 5MG TABLET PO SCH ×3 (09:45→17:08)
[2021-11-09 13:17] LABS: BASOPHILS % 1.2 % (0.0-2.0); EOSINOPHILS % 3.7 % (0.0-5.0); HEMATOCRIT. 31.6 % (36.0-48.0); HEMOGLOBIN. 9.6 g/dL (12.0-16.0); LYMPHOCYTES % 7.6 % (20.0-50.0); MEAN CORPUSCULAR HEMOGLOBIN 24.5 pg (28.0-32.0); MEAN CORPUSCULAR VOLUME 80.8 fL (81.0-99.0); MEAN PLATELET VOLUME 7.5 fl (7.4-10.4); MONOCYTES % 5.3 % (2.0-8.0); NEUTROPHILS % 82.2 % (40.0-76.0); PLATELET 288 x1000/uL (130-400); RED BLOOD CELL COUNT 3.91 mill/uL (4.2-5.4); RED CELL DISTRIBUTION WIDTH 16.3 % (11.6-14.6)
[2021-11-09] MEDS: FAMOTIDINE 20MG TABLET PO SCH (21:20)
[2021-11-09] MEDS: SENNOSIDES/DOCUSATE SOD 8.6/50MG TABLET PO PRN (23:46)
[2021-11-10] VITALS (21 sets, daily range): BP systolic 129–156; BP diastolic 61–86
[2021-11-10] MEDS: IPRATROPIUM/ALBUTEROL 0.5-3(2.5)MG/3ML NEB HHN SCH ×6 (00:13→20:37)
[2021-11-10] MEDS: ACETYLCYSTEINE 100MG/ML 10% VIAL 4ML INH SCH ×3 (00:14→16:27)
[2021-11-10] MEDS: DEXT 5%/0.45% NACL 1000ML 1,000 ML IV SCH (02:11)
[2021-11-10] MEDS: GABAPENTIN 100MG CAPSULE PO SCH ×3 (05:54→21:18)
[2021-11-10] MEDS: GUAIFENESIN 200MG/10ML SUGAR FREE UDC PO SCH ×3 (05:54→18:28)
[2021-11-10 06:06] LABS: HEMATOCRIT. 30.9 % (36.0-48.0); HEMOGLOBIN. 9.7 g/dL (12.0-16.0); MEAN CORPUSCULAR HEMOGLOBIN 24.8 pg (28.0-32.0); MEAN CORPUSCULAR VOLUME 79.3 fL (81.0-99.0); MEAN PLATELET VOLUME 7.4 fl (7.4-10.4); PLATELET 254 x1000/uL (130-400); RED CELL DISTRIBUTION WIDTH 16.2 % (11.6-14.6)
[2021-11-10] MEDS: LEVETIRACETAM 500MG TABLET PO SCH ×2 (09:54→21:17)
[2021-11-10] MEDS: CINACALCET HCL 30MG TABLET PO SCH (09:54)
[2021-11-10] MEDS: METHIMAZOLE 5MG TABLET PO SCH (09:54)
[2021-11-10] MEDS: MIDODRINE HCL 5MG TABLET PO SCH ×3 (09:55→17:00)
[2021-11-10 11:20] LABS: BG CARBOXYHEMOGLOBIN 0.1 % (0.5-1.5); BG DEOXYHEMOGLOBIN 0.8 % (0.0-5.0); BG FRACTION INSPIRED OXYGEN 35; BG HCO3 ACT 20.7 mmol/L (22.0-26.0); BG METHEMOGLOBIN 0.4 % (0.0-1.5); BG OXYGEN SATURATION 99.2 % (92.0-98.5); BG OXYHEMOGLOBIN 98.7 % (94.0-97.0); BG PH 7.429 (7.350-7.450); BG PO2 162.8 mmHg (75.0-100.0); BG SAMPLE SITE RIGHT RADIAL; BG TOTAL HEMOGLOBIN 9.5 g/dL (12.0-18.0); BG VENT MODE VENT - AC
[2021-11-10 14:28] LABS: PLATELET ESTIMATE NORMAL
[2021-11-10] MEDS: FAMOTIDINE 20MG TABLET PO SCH (21:18)
[2021-11-11] VITALS (36 sets, daily range): BP systolic 120–196; BP diastolic 61–117
[2021-11-11] MEDS: ACETYLCYSTEINE 100MG/ML 10% VIAL 4ML INH SCH ×2 (00:31→16:47)
[2021-11-11] MEDS: IPRATROPIUM/ALBUTEROL 0.5-3(2.5)MG/3ML NEB HHN SCH ×5 (00:32→20:43)
[2021-11-11] MEDS: GUAIFENESIN 200MG/10ML SUGAR FREE UDC PO SCH ×4 (00:56→23:43)
[2021-11-11] MEDS: GABAPENTIN 100MG CAPSULE PO SCH ×3 (06:00→22:06)
[2021-11-11 06:27] LABS: BASOPHILS % 1.4 % (0.0-2.0); HEMATOCRIT. 27.5 % (36.0-48.0); HEMOGLOBIN. 8.6 g/dL (12.0-16.0); INR 0.9; LYMPHOCYTES % 12.1 % (20.0-50.0); MEAN CORPUSCULAR HEMOGLOBIN 24.5 pg (28.0-32.0); MEAN CORPUSCULAR VOLUME 78.5 fL (81.0-99.0); MEAN PLATELET VOLUME 7.4 fl (7.4-10.4); NEUTROPHILS % 76.5 % (40.0-76.0); PLATELET 204 x1000/uL (130-400); PROTHROMBIN TIME 10.2 sec (9.6-11.0); RED BLOOD CELL COUNT 3.51 mill/uL (4.2-5.4); RED CELL DISTRIBUTION WIDTH 16.2 % (11.6-14.6)
[2021-11-11 06:51] LABS: FOLIC ACID (FOLATE) SERUM 6.5 ng/mL (>5.38)
[2021-11-11] MEDS ORDERED: LIDOCAINE HCL/EPINEPHRINE 1%-EPI 1:100,000 30 ML VIAL INFIL ONE (07:02)
[2021-11-11] MEDS ORDERED: SODIUM CHLORIDE 0.9% 10ML VIAL ONE (07:52)
[2021-11-11] MEDS ORDERED: VECURONIUM BROMIDE 10 MG/VIAL IV ONE (07:52)
[2021-11-11] MEDS: MIDODRINE HCL 5MG TABLET PO SCH ×3 (09:00→17:00)
[2021-11-11 12:45] LABS: GAMMA GLUTAMYL TRANSPEPTIDASE 16 IU/L (7-32)
[2021-11-11] MEDS: CINACALCET HCL 30MG TABLET PO SCH (12:49)
[2021-11-11] MEDS: METHIMAZOLE 5MG TABLET PO SCH (12:50)
[2021-11-11] MEDS: LEVETIRACETAM 500MG TABLET PO SCH ×2 (12:50→21:00)
[2021-11-11] MEDS: PANTOPRAZOLE SODIUM 40 MG/VIAL IV SCH ×2 (12:53→21:00)
[2021-11-12] VITALS (40 sets, daily range): BP systolic 99–171; BP diastolic 50–97
[2021-11-12] MEDS: IPRATROPIUM/ALBUTEROL 0.5-3(2.5)MG/3ML NEB HHN SCH ×6 (00:53→20:57)
[2021-11-12] MEDS: ACETYLCYSTEINE 100MG/ML 10% VIAL 4ML INH SCH ×3 (00:53→16:30)
[2021-11-12] MEDS: GABAPENTIN 100MG CAPSULE PO SCH ×3 (05:50→21:05)
[2021-11-12] MEDS: GUAIFENESIN 200MG/10ML SUGAR FREE UDC PO SCH ×4 (06:00→23:28)
[2021-11-12 06:15] LABS: BASOPHILS % 1.2 % (0.0-2.0); EOSINOPHILS % 4.8 % (0.0-5.0); HEMATOCRIT. 28.5 % (36.0-48.0); HEMOGLOBIN. 8.9 g/dL (12.0-16.0); MEAN CORPUSCULAR HEMOGLOBIN 24.7 pg (28.0-32.0); MEAN CORPUSCULAR VOLUME 78.7 fL (81.0-99.0); MEAN PLATELET VOLUME 7.6 fl (7.4-10.4); MONOCYTES % 5.2 % (2.0-8.0); NEUTROPHILS % 80.8 % (40.0-76.0); PLATELET 213 x1000/uL (130-400); RED BLOOD CELL COUNT 3.62 mill/uL (4.2-5.4); RED CELL DISTRIBUTION WIDTH 16.2 % (11.6-14.6)
[2021-11-12 06:21] LABS: PROTHROMBIN TIME 10.5 sec (9.6-11.0)
[2021-11-12 08:24] LABS: BG CARBOXYHEMOGLOBIN 0.3 % (0.5-1.5); BG DEOXYHEMOGLOBIN 1.2 % (0.0-5.0); BG FRACTION INSPIRED OXYGEN 35; BG HCO3 ACT 19.7 mmol/L (22.0-26.0); BG METHEMOGLOBIN 0.3 % (0.0-1.5); BG OXYGEN SATURATION 98.8 % (92.0-98.5); BG OXYHEMOGLOBIN 98.2 % (94.0-97.0); BG PCO2 35.3 mmHg (35.0-45.0); BG PH 7.365 (7.350-7.450); BG PO2 167.1 mmHg (75.0-100.0); BG SAMPLE SITE RIGHT RADIAL; BG TOTAL HEMOGLOBIN 9.6 g/dL (12.0-18.0); BG TOTAL RESPIRATORY RATE 16 b/min; BG VENT MODE VENT - AC
[2021-11-12] MEDS: MIDODRINE HCL 5MG TABLET PO SCH ×3 (08:37→17:00)
[2021-11-12] MEDS: LEVETIRACETAM 500MG TABLET PO SCH ×2 (08:37→21:05)
[2021-11-12] MEDS: CINACALCET HCL 30MG TABLET PO SCH (09:00)
[2021-11-12] MEDS: METHIMAZOLE 5MG TABLET PO SCH (09:00)
[2021-11-12] MEDS ORDERED: CEFAZOLIN 1000MG PREMIX 50 ML IV NR (09:30)
[2021-11-12] MEDS: PANTOPRAZOLE SODIUM 40 MG/VIAL IV SCH ×2 (10:37→21:05)
[2021-11-12] MEDS: METOCLOPRAMIDE HCL 10MG/2ML VIAL IV SCH ×3 (11:46→23:28)
[2021-11-12] MEDS ORDERED: POLYETHYLENE GLYCOL 3350 (17GM) 1 DOSE PACK PO NR (14:15)
[2021-11-12] MEDS: DOCUSATE SODIUM SUGAR FREE 100MG/10ML UDC NG SCH (15:27)
[2021-11-13] VITALS (12 sets, daily range): BP systolic 117–152; BP diastolic 70–93
[2021-11-13] MEDS: ACETYLCYSTEINE 100MG/ML 10% VIAL 4ML INH SCH ×2 (00:35→08:06)
[2021-11-13] MEDS: IPRATROPIUM/ALBUTEROL 0.5-3(2.5)MG/3ML NEB HHN SCH ×6 (00:35→21:22)
[2021-11-13] MEDS: GABAPENTIN 100MG CAPSULE PO SCH ×3 (05:16→21:34)
[2021-11-13] MEDS: METOCLOPRAMIDE HCL 10MG/2ML VIAL IV SCH ×4 (05:16→23:21)
[2021-11-13] MEDS: GUAIFENESIN 200MG/10ML SUGAR FREE UDC PO SCH ×4 (05:16→23:21)
[2021-11-13 06:10] LABS: HEPATITIS B SURFACE ANTIGEN NEGATIVE
[2021-11-13 06:42] LABS: HEMATOCRIT. 28.8 % (36.0-48.0); HEMOGLOBIN. 9.1 g/dL (12.0-16.0); MEAN CORPUSCULAR HEMOGLOBIN 24.9 pg (28.0-32.0); MEAN CORPUSCULAR VOLUME 78.6 fL (81.0-99.0); RED BLOOD CELL COUNT 3.66 mill/uL (4.2-5.4); RED CELL DISTRIBUTION WIDTH 16.5 % (11.6-14.6)
[2021-11-13] MEDS: DOCUSATE SODIUM SUGAR FREE 100MG/10ML UDC NG SCH (09:00)
[2021-11-13] MEDS: CINACALCET HCL 30MG TABLET PO SCH (09:00)
[2021-11-13] MEDS: METHIMAZOLE 5MG TABLET PO SCH (09:00)
[2021-11-13] MEDS: MIDODRINE HCL 5MG TABLET PO SCH ×3 (09:00→17:00)
[2021-11-13] MEDS: LEVETIRACETAM 500MG TABLET PO SCH ×2 (09:00→21:34)
[2021-11-13] MEDS: PANTOPRAZOLE SODIUM 40 MG/VIAL IV SCH ×2 (11:23→21:34)
[2021-11-13 11:29] LABS: PLATELET 221 x1000/uL (130-400)
[2021-11-13 11:35] LABS: PLATELET ESTIMATE NORMAL
[2021-11-14] VITALS (13 sets, daily range): BP systolic 104–157; BP diastolic 51–94
[2021-11-14] MEDS: IPRATROPIUM/ALBUTEROL 0.5-3(2.5)MG/3ML NEB HHN SCH ×6 (00:45→21:13)
[2021-11-14] MEDS: GABAPENTIN 100MG CAPSULE PO SCH (05:12)
[2021-11-14] MEDS: GUAIFENESIN 200MG/10ML SUGAR FREE UDC PO SCH ×4 (05:12→23:22)
[2021-11-14] MEDS: METOCLOPRAMIDE HCL 10MG/2ML VIAL IV SCH ×4 (05:12→23:22)
[2021-11-14] MEDS ORDERED: CEFAZOLIN 1000MG PREMIX 50 ML IV PRN (06:00)
[2021-11-14 07:46] LABS: BASOPHILS % 0.7 % (0.0-2.0); EOSINOPHILS % 3.5 % (0.0-5.0); HEMATOCRIT. 28.8 % (36.0-48.0); LYMPHOCYTES % 7.6 % (20.0-50.0); MEAN CORPUSCULAR HEMOGLOBIN 24.3 pg (28.0-32.0); MEAN PLATELET VOLUME 7.3 fl (7.4-10.4); MONOCYTES % 4.3 % (2.0-8.0); NEUTROPHILS % 83.9 % (40.0-76.0); PLATELET 235 x1000/uL (130-400); RED BLOOD CELL COUNT 3.69 mill/uL (4.2-5.4); RED CELL DISTRIBUTION WIDTH 16.2 % (11.6-14.6)
[2021-11-14 07:56] LABS: PROTHROMBIN TIME 10.6 sec (9.6-11.0)
[2021-11-14] MEDS: DEXTROSE 50% WATER 50ML SYRINGE IV NR ×2 (08:23→10:47)
[2021-11-14] MEDS: CINACALCET HCL 30MG TABLET PO SCH (09:00)
[2021-11-14] MEDS: METHIMAZOLE 5MG TABLET PO SCH (09:00)
[2021-11-14] MEDS: DOCUSATE SODIUM SUGAR FREE 100MG/10ML UDC NG SCH (09:00)
[2021-11-14] MEDS: MIDODRINE HCL 5MG TABLET PO SCH ×3 (09:00→18:11)
[2021-11-14] MEDS: LEVETIRACETAM 500MG TABLET PO SCH (09:00)
[2021-11-14] MEDS ORDERED: ALTEPLASE 2MG/VIAL ITC NR (10:00)
[2021-11-14] MEDS ORDERED: DEXT 5%/0.45% NACL 500ML 500 ML IV ONE (10:30)
[2021-11-14] MEDS ORDERED: DEXTROSE 50% WATER 50ML SYRINGE IV PRN (10:30)
[2021-11-14] MEDS: PANTOPRAZOLE SODIUM 40 MG/VIAL IV SCH ×2 (10:38→20:57)
[2021-11-15] VITALS (11 sets, daily range): BP systolic 119–152; BP diastolic 66–87
[2021-11-15] MEDS: IPRATROPIUM/ALBUTEROL 0.5-3(2.5)MG/3ML NEB HHN SCH ×6 (01:09→20:27)
[2021-11-15] MEDS: METOCLOPRAMIDE HCL 10MG/2ML VIAL IV SCH ×4 (05:09→23:39)
[2021-11-15] MEDS: GUAIFENESIN 200MG/10ML SUGAR FREE UDC PO SCH ×4 (05:09→23:39)
[2021-11-15] MEDS: MIDODRINE HCL 5MG TABLET PO SCH ×3 (09:00→17:00)
[2021-11-15] MEDS: DOCUSATE SODIUM SUGAR FREE 100MG/10ML UDC NG SCH (09:14)
[2021-11-15] MEDS: PANTOPRAZOLE SODIUM 40 MG/VIAL IV SCH ×2 (09:14→20:14)
[2021-11-15 11:58] LABS: HEMATOCRIT. 29.5 % (36.0-48.0); MEAN CORPUSCULAR VOLUME 78.6 fL (81.0-99.0); MEAN PLATELET VOLUME 7.3 fl (7.4-10.4); PLATELET 227 x1000/uL (130-400); RED BLOOD CELL COUNT 3.76 mill/uL (4.2-5.4); RED CELL DISTRIBUTION WIDTH 16.4 % (11.6-14.6)
[2021-11-15 12:17] LABS: PROTHROMBIN TIME 10.6 sec (9.6-11.0)
[2021-11-15 13:41] LABS: PLATELET ESTIMATE NORMAL
[2021-11-15] MEDS ORDERED: CEFEPIME 1,000 MG in DEXTROSE 5% WATER 50 ML IV SCH (16:00)
[2021-11-15] MEDS: CEFEPIME 1,000 MG in DEXTROSE 5% WATER 50 ML IV SCH (17:32)
[2021-11-16] VITALS (12 sets, daily range): BP systolic 97–154; BP diastolic 48–87
[2021-11-16] MEDS: IPRATROPIUM/ALBUTEROL 0.5-3(2.5)MG/3ML NEB HHN SCH ×6 (00:20→20:37)
[2021-11-16] MEDS: GUAIFENESIN 200MG/10ML SUGAR FREE UDC PO SCH ×4 (05:09→23:42)
[2021-11-16] MEDS: METOCLOPRAMIDE HCL 10MG/2ML VIAL IV SCH ×4 (05:09→23:42)
[2021-11-16 07:07] LABS: PROTHROMBIN TIME 10.4 sec (9.6-11.0)
[2021-11-16 07:19] LABS: HEMATOCRIT. 29.4 % (36.0-48.0); MEAN CORPUSCULAR HEMOGLOBIN 24.1 pg (28.0-32.0); MEAN CORPUSCULAR VOLUME 78.8 fL (81.0-99.0); RED BLOOD CELL COUNT 3.74 mill/uL (4.2-5.4); RED CELL DISTRIBUTION WIDTH 16.3 % (11.6-14.6)
[2021-11-16 08:54] LABS: PLATELET 233 x1000/uL (130-400)
[2021-11-16] MEDS: DOCUSATE SODIUM SUGAR FREE 100MG/10ML UDC NG SCH (09:35)
[2021-11-16] MEDS: PANTOPRAZOLE SODIUM 40 MG/VIAL IV SCH ×2 (09:35→21:29)
[2021-11-16] MEDS: MIDODRINE HCL 5MG TABLET PO SCH (09:35)
[2021-11-16] MEDS: CEFEPIME 1,000 MG in DEXTROSE 5% WATER 50 ML IV SCH (17:29)
[2021-11-17] VITALS (13 sets, daily range): BP systolic 81–131; BP diastolic 48–81
[2021-11-17] MEDS: IPRATROPIUM/ALBUTEROL 0.5-3(2.5)MG/3ML NEB HHN SCH ×6 (00:14→21:13)
[2021-11-17] MEDS: GUAIFENESIN 200MG/10ML SUGAR FREE UDC PO SCH ×3 (05:44→17:44)
[2021-11-17] MEDS: METOCLOPRAMIDE HCL 10MG/2ML VIAL IV SCH ×3 (05:44→17:43)
[2021-11-17] MEDS: MIDODRINE HCL 5MG TABLET PO SCH ×3 (06:26→17:44)
[2021-11-17 06:44] LABS: PROTHROMBIN TIME 11.1 sec (9.6-11.0)
[2021-11-17] MEDS: PANTOPRAZOLE SODIUM 40 MG/VIAL IV SCH ×2 (08:27→20:59)
[2021-11-17] MEDS: DOCUSATE SODIUM SUGAR FREE 100MG/10ML UDC NG SCH (08:27)
[2021-11-17] MEDS: CEFEPIME 1,000 MG in DEXTROSE 5% WATER 50 ML IV SCH (17:44)
[2021-11-18] VITALS (15 sets, daily range): BP systolic 92–135; BP diastolic 54–78
[2021-11-18] MEDS: METOCLOPRAMIDE HCL 10MG/2ML VIAL IV SCH ×5 (00:10→23:06)
[2021-11-18] MEDS: GUAIFENESIN 200MG/10ML SUGAR FREE UDC PO SCH ×6 (00:10→23:06)
[2021-11-18] MEDS: IPRATROPIUM/ALBUTEROL 0.5-3(2.5)MG/3ML NEB HHN SCH ×5 (00:21→20:43)
[2021-11-18 05:41] LABS: HEPATITIS B SURFACE ANTIGEN NEGATIVE
[2021-11-18 06:57] LABS: HEMATOCRIT. 25.3 % (36.0-48.0); MEAN CORPUSCULAR HEMOGLOBIN 24.5 pg (28.0-32.0); MEAN CORPUSCULAR VOLUME 77.4 fL (81.0-99.0); MEAN PLATELET VOLUME 7.5 fl (7.4-10.4); PLATELET 221 x1000/uL (130-400); RED BLOOD CELL COUNT 3.27 mill/uL (4.2-5.4)
[2021-11-18 07:35] LABS: CHLORIDE 102 mEq/L (98-107)
[2021-11-18] MEDS: DOCUSATE SODIUM SUGAR FREE 100MG/10ML UDC NG SCH (08:20)
[2021-11-18] MEDS: MIDODRINE HCL 5MG TABLET PO SCH ×3 (09:00→17:00)
[2021-11-18] MEDS: PANTOPRAZOLE SODIUM 40 MG/VIAL IV SCH ×2 (09:53→22:05)
[2021-11-18] MEDS ORDERED: ALTEPLASE 2MG/VIAL ITC SCH (10:00)
[2021-11-18 17:45] LABS: PLATELET ESTIMATE NORMAL
[2021-11-18] MEDS: CEFEPIME 1,000 MG in DEXTROSE 5% WATER 50 ML IV SCH (19:00)
[2021-11-19] VITALS (13 sets, daily range): BP systolic 106–141; BP diastolic 50–93
[2021-11-19] MEDS: IPRATROPIUM/ALBUTEROL 0.5-3(2.5)MG/3ML NEB HHN SCH ×6 (00:38→20:46)
[2021-11-19] MEDS: GUAIFENESIN 200MG/10ML SUGAR FREE UDC PO SCH ×4 (05:01→23:31)
[2021-11-19] MEDS: METOCLOPRAMIDE HCL 10MG/2ML VIAL IV SCH ×4 (05:13→23:31)
[2021-11-19 07:53] LABS: HEMATOCRIT. 27.6 % (36.0-48.0); HEMOGLOBIN. 8.6 g/dL (12.0-16.0); MEAN CORPUSCULAR HEMOGLOBIN 24.6 pg (28.0-32.0); MEAN CORPUSCULAR VOLUME 78.6 fL (81.0-99.0); MEAN PLATELET VOLUME 7.6 fl (7.4-10.4); PLATELET 245 x1000/uL (130-400); RED BLOOD CELL COUNT 3.51 mill/uL (4.2-5.4); RED CELL DISTRIBUTION WIDTH 16.7 % (11.6-14.6)
[2021-11-19] MEDS: MIDODRINE HCL 5MG TABLET PO SCH ×3 (08:53→17:00)
[2021-11-19] MEDS: DOCUSATE SODIUM SUGAR FREE 100MG/10ML UDC NG SCH (08:53)
[2021-11-19] MEDS: PANTOPRAZOLE SODIUM 40 MG/VIAL IV SCH ×2 (09:31→20:14)
[2021-11-19] MEDS ORDERED: FENTANYL CITRATE/PF 50MCG/ML 2ML VIAL ONE (11:33)
[2021-11-19] MEDS ORDERED: MIDAZOLAM HCL 5 MG/5 ML VIAL ONE (11:33)
[2021-11-19] MEDS ORDERED: MIDAZOLAM HCL 5 MG/5 ML VIAL IV PRN (11:33)
[2021-11-19] MEDS ORDERED: DIAZEPAM 5 MG/ML 2ML CPJ ONE (11:34)
[2021-11-19] MEDS ORDERED: FENTANYL CITRATE/PF 50MCG/ML 2ML VIAL IV PRN (12:28)
[2021-11-19] MEDS: CEFEPIME 1,000 MG in DEXTROSE 5% WATER 50 ML IV SCH ×2 (15:55→17:13)
[2021-11-19 21:40] LABS: PLATELET ESTIMATE NORMAL
[2021-11-20] VITALS (12 sets, daily range): BP systolic 97–155; BP diastolic 54–88
[2021-11-20] MEDS: IPRATROPIUM/ALBUTEROL 0.5-3(2.5)MG/3ML NEB HHN SCH ×5 (00:42→20:39)
[2021-11-20] MEDS: METOCLOPRAMIDE HCL 10MG/2ML VIAL IV SCH ×3 (05:14→18:27)
[2021-11-20] MEDS: GUAIFENESIN 200MG/10ML SUGAR FREE UDC PO SCH ×3 (05:14→18:27)
[2021-11-20 05:32] LABS: HEMATOCRIT. 28.3 % (36.0-48.0); HEMOGLOBIN. 8.8 g/dL (12.0-16.0); MEAN CORPUSCULAR HEMOGLOBIN 24.4 pg (28.0-32.0); MEAN CORPUSCULAR VOLUME 78.4 fL (81.0-99.0); MEAN PLATELET VOLUME 7.3 fl (7.4-10.4); PLATELET 232 x1000/uL (130-400); RED BLOOD CELL COUNT 3.61 mill/uL (4.2-5.4); RED CELL DISTRIBUTION WIDTH 16.7 % (11.6-14.6)
[2021-11-20] MEDS: DOCUSATE SODIUM SUGAR FREE 100MG/10ML UDC NG SCH (08:32)
[2021-11-20] MEDS: PANTOPRAZOLE SODIUM 40 MG/VIAL IV SCH ×2 (08:33→20:54)
[2021-11-20] MEDS: MIDODRINE HCL 5MG TABLET PO SCH ×3 (08:33→17:00)
[2021-11-20 16:49] LABS: PLATELET ESTIMATE NORMAL
[2021-11-20] MEDS: CEFEPIME 1,000 MG in DEXTROSE 5% WATER 50 ML IV SCH (18:28)
[2021-11-20] MEDS: EPOETIN ALFA-EPBX 10,000 UNIT/ML VIAL SUBCUT SCH (20:54)
[2021-11-21] VITALS (12 sets, daily range): BP systolic 91–140; BP diastolic 52–73
[2021-11-21] MEDS: IPRATROPIUM/ALBUTEROL 0.5-3(2.5)MG/3ML NEB HHN SCH ×6 (00:36→20:28)
[2021-11-21] MEDS: GUAIFENESIN 200MG/10ML SUGAR FREE UDC PO SCH ×5 (05:19→23:55)
[2021-11-21] MEDS: METOCLOPRAMIDE HCL 10MG/2ML VIAL IV SCH ×5 (05:20→23:55)
[2021-11-21 08:04] LABS: HEMATOCRIT. 25.6 % (36.0-48.0); HEMOGLOBIN. 8.1 g/dL (12.0-16.0); MEAN CORPUSCULAR HEMOGLOBIN 24.7 pg (28.0-32.0); MEAN CORPUSCULAR VOLUME 77.9 fL (81.0-99.0); MEAN PLATELET VOLUME 7.6 fl (7.4-10.4); PLATELET 199 x1000/uL (130-400); RED BLOOD CELL COUNT 3.28 mill/uL (4.2-5.4); RED CELL DISTRIBUTION WIDTH 16.5 % (11.6-14.6)
[2021-11-21] MEDS: DOCUSATE SODIUM SUGAR FREE 100MG/10ML UDC NG SCH (09:10)
[2021-11-21] MEDS: PANTOPRAZOLE SODIUM 40 MG/VIAL IV SCH ×2 (09:10→21:47)
[2021-11-21 10:32] LABS: PLATELET ESTIMATE NORMAL
[2021-11-21 22:45] LABS: HEPATITIS B SURFACE ANTIGEN NEGATIVE
[2021-11-22] VITALS (12 sets, daily range): BP systolic 113–132; BP diastolic 60–79
[2021-11-22] MEDS: IPRATROPIUM/ALBUTEROL 0.5-3(2.5)MG/3ML NEB HHN SCH ×6 (04:26→20:13)
[2021-11-22] MEDS: METOCLOPRAMIDE HCL 10MG/2ML VIAL IV SCH ×3 (05:06→17:43)
[2021-11-22] MEDS: GUAIFENESIN 200MG/10ML SUGAR FREE UDC PO SCH ×3 (05:08→17:43)
[2021-11-22] MEDS: PANTOPRAZOLE SODIUM 40 MG/VIAL IV SCH ×2 (08:57→21:10)
[2021-11-22] MEDS: DOCUSATE SODIUM SUGAR FREE 100MG/10ML UDC NG SCH (08:57)
[2021-11-22 13:31] LABS: BG BASE EXCESS -2.9 mmol/L (-2.0-2.0); BG DEOXYHEMOGLOBIN 1.8 % (0.0-5.0); BG HCO3 ACT 23.1 mmol/L (22.0-26.0); BG METHEMOGLOBIN 0.6 % (0.0-1.5); BG OXYGEN SATURATION 98.2 % (92.0-98.5); BG OXYHEMOGLOBIN 97.6 % (94.0-97.0); BG PCO2 45.3 mmHg (35.0-45.0); BG PH 7.325 (7.350-7.450); BG PO2 126.7 mmHg (75.0-100.0); BG SAMPLE SITE RIGHT RADIAL; BG VENT MODE VENT - CPAP
[2021-11-22] MEDS: EPOETIN ALFA-EPBX 10,000 UNIT/ML VIAL SUBCUT SCH (21:10)
[2021-11-23] VITALS (12 sets, daily range): BP systolic 103–126; BP diastolic 58–77
[2021-11-23] MEDS: IPRATROPIUM/ALBUTEROL 0.5-3(2.5)MG/3ML NEB HHN SCH ×5 (00:18→20:08)
[2021-11-23] MEDS: GUAIFENESIN 200MG/10ML SUGAR FREE UDC PO SCH ×5 (00:47→23:54)
[2021-11-23] MEDS: METOCLOPRAMIDE HCL 10MG/2ML VIAL IV SCH ×5 (00:47→23:54)
[2021-11-23] MEDS: PANTOPRAZOLE SODIUM 40 MG/VIAL IV SCH ×2 (10:28→20:45)
[2021-11-23] MEDS: DOCUSATE SODIUM SUGAR FREE 100MG/10ML UDC NG SCH (10:29)
[2021-11-23] MEDS: DEXT 5%/0.45% NACL 1000ML 1,000 ML IV SCH (19:35)
[2021-11-24] VITALS (12 sets, daily range): BP systolic 111–139; BP diastolic 65–84
[2021-11-24] MEDS: IPRATROPIUM/ALBUTEROL 0.5-3(2.5)MG/3ML NEB HHN SCH ×6 (00:09→20:04)
[2021-11-24] MEDS: METOCLOPRAMIDE HCL 10MG/2ML VIAL IV SCH ×4 (05:59→23:29)
[2021-11-24] MEDS: GUAIFENESIN 200MG/10ML SUGAR FREE UDC PO SCH ×4 (05:59→23:29)
[2021-11-24] MEDS: PANTOPRAZOLE SODIUM 40 MG/VIAL IV SCH ×2 (08:35→20:21)
[2021-11-24] MEDS: DOCUSATE SODIUM SUGAR FREE 100MG/10ML UDC NG SCH (08:35)
[2021-11-24 19:39] LABS: HEPATITIS B SURFACE ANTIGEN NEGATIVE
[2021-11-24] MEDS: DEXT 5%/0.45% NACL 1000ML 1,000 ML IV SCH (19:59)
[2021-11-25] VITALS (12 sets, daily range): BP systolic 118–145; BP diastolic 58–79
[2021-11-25] MEDS: IPRATROPIUM/ALBUTEROL 0.5-3(2.5)MG/3ML NEB HHN SCH ×6 (00:07→20:24)
[2021-11-25] MEDS: GUAIFENESIN 200MG/10ML SUGAR FREE UDC PO SCH ×2 (05:04→13:11)
[2021-11-25] MEDS: METOCLOPRAMIDE HCL 10MG/2ML VIAL IV SCH ×3 (05:04→23:48)
[2021-11-25] MEDS: PANTOPRAZOLE SODIUM 40 MG/VIAL IV SCH ×2 (09:22→20:05)
[2021-11-25] MEDS: DOCUSATE SODIUM SUGAR FREE 100MG/10ML UDC NG SCH (09:22)
[2021-11-25] MEDS: DEXT 5%/0.45% NACL 1000ML 1,000 ML IV SCH (20:06)
[2021-11-25] MEDS: EPOETIN ALFA-EPBX 10,000 UNIT/ML VIAL SUBCUT SCH (21:06)
[2021-11-26] VITALS (12 sets, daily range): BP systolic 131–152; BP diastolic 71–95
[2021-11-26] MEDS: IPRATROPIUM/ALBUTEROL 0.5-3(2.5)MG/3ML NEB HHN SCH ×6 (01:12→21:32)
[2021-11-26] MEDS: GUAIFENESIN 200MG/10ML SUGAR FREE UDC PO SCH ×4 (01:23→17:53)
[2021-11-26] MEDS: METOCLOPRAMIDE HCL 10MG/2ML VIAL IV SCH ×3 (05:00→17:53)
[2021-11-26] MEDS: DOCUSATE SODIUM SUGAR FREE 100MG/10ML UDC NG SCH (09:50)
[2021-11-26] MEDS: PANTOPRAZOLE SODIUM 40 MG/VIAL IV SCH ×2 (09:51→20:43)
[2021-11-26 15:23] LABS: BG BASE EXCESS -1.1 mmol/L (-2.0-2.0); BG CARBOXYHEMOGLOBIN 0.1 % (0.5-1.5); BG DEOXYHEMOGLOBIN 1.8 % (0.0-5.0); BG HCO3 ACT 25.4 mmol/L (22.0-26.0); BG METHEMOGLOBIN 1.1 % (0.0-1.5); BG OXYGEN SATURATION 98.2 % (92.0-98.5); BG PCO2 51.7 mmHg (35.0-45.0); BG PO2 157.4 mmHg (75.0-100.0); BG SAMPLE SITE RIGHT RADIAL; BG TOTAL HEMOGLOBIN 9.7 g/dL (12.0-18.0); BG VENT MODE VENT - CPAP
[2021-11-26] MEDS: DEXT 5%/0.45% NACL 1000ML 1,000 ML IV SCH (20:44)
[2021-11-27] VITALS (12 sets, daily range): BP systolic 103–164; BP diastolic 64–92
[2021-11-27] MEDS: METOCLOPRAMIDE HCL 10MG/2ML VIAL IV SCH ×5 (00:24→23:48)
[2021-11-27] MEDS: GUAIFENESIN 200MG/10ML SUGAR FREE UDC PO SCH ×5 (00:24→23:48)
[2021-11-27] MEDS: IPRATROPIUM/ALBUTEROL 0.5-3(2.5)MG/3ML NEB HHN SCH ×6 (01:16→20:35)
[2021-11-27] MEDS: DOCUSATE SODIUM SUGAR FREE 100MG/10ML UDC NG SCH (08:49)
[2021-11-27] MEDS: PANTOPRAZOLE SODIUM 40 MG/VIAL IV SCH ×2 (08:49→20:44)
[2021-11-27 10:46] LABS: BG BASE EXCESS -0.1 mmol/L (-2.0-2.0); BG CARBOXYHEMOGLOBIN 0.6 % (0.5-1.5); BG DEOXYHEMOGLOBIN 0.6 % (0.0-5.0); BG FRACTION INSPIRED OXYGEN 35; BG HCO3 ACT 26.3 mmol/L (22.0-26.0); BG METHEMOGLOBIN 0.5 % (0.0-1.5); BG OXYGEN SATURATION 99.4 % (92.0-98.5); BG OXYHEMOGLOBIN 98.3 % (94.0-97.0); BG PCO2 51.7 mmHg (35.0-45.0); BG PH 7.324 (7.350-7.450); BG PO2 204.5 mmHg (75.0-100.0); BG SAMPLE SITE RIGHT RADIAL; BG TOTAL HEMOGLOBIN 9.3 g/dL (12.0-18.0); BG TOTAL RESPIRATORY RATE 23 b/min; BG VENT MODE CPAP/PS
[2021-11-27] MEDS: DEXT 5%/0.45% NACL 1000ML 1,000 ML IV SCH (17:55)
[2021-11-27] MEDS: EPOETIN ALFA-EPBX 10,000 UNIT/ML VIAL SUBCUT SCH (21:49)
[2021-11-28] VITALS (18 sets, daily range): BP systolic 119–173; BP diastolic 68–108
[2021-11-28] MEDS: IPRATROPIUM/ALBUTEROL 0.5-3(2.5)MG/3ML NEB HHN SCH ×6 (00:27→20:36)
[2021-11-28] MEDS: METOCLOPRAMIDE HCL 10MG/2ML VIAL IV SCH ×4 (05:05→23:24)
[2021-11-28] MEDS: GUAIFENESIN 200MG/10ML SUGAR FREE UDC PO SCH ×4 (05:05→23:25)
[2021-11-28 07:20] LABS: HEMATOCRIT. 27.2 % (36.0-48.0); HEMOGLOBIN. 8.3 g/dL (12.0-16.0); MEAN CORPUSCULAR HEMOGLOBIN 24.1 pg (28.0-32.0); MEAN CORPUSCULAR VOLUME 79.4 fL (81.0-99.0); PLATELET 179 x1000/uL (130-400); RED BLOOD CELL COUNT 3.42 mill/uL (4.2-5.4)
[2021-11-28] MEDS: PANTOPRAZOLE SODIUM 40 MG/VIAL IV SCH ×2 (10:50→20:41)
[2021-11-28] MEDS: DOCUSATE SODIUM SUGAR FREE 100MG/10ML UDC NG SCH (10:50)
[2021-11-28] MEDS ORDERED: CEFAZOLIN 1000MG PREMIX 50 ML IV ONE ×2 (11:15→12:30)
[2021-11-28] MEDS ORDERED: LIDOCAINE HCL 1% 20ML VIAL (Pyxis) INJ ONE (12:31)
[2021-11-28 14:22] LABS: PLATELET ESTIMATE NORMAL
[2021-11-28 17:27] LABS: HEPATITIS B SURFACE ANTIGEN NEGATIVE
[2021-11-28] MEDS: DEXT 5%/0.45% NACL 1000ML 1,000 ML IV SCH (17:48)
[2021-11-29] VITALS (12 sets, daily range): BP systolic 121–154; BP diastolic 57–91
[2021-11-29] MEDS: IPRATROPIUM/ALBUTEROL 0.5-3(2.5)MG/3ML NEB HHN SCH ×5 (04:06→22:06)
[2021-11-29] MEDS: GUAIFENESIN 200MG/10ML SUGAR FREE UDC PO SCH ×4 (05:42→22:49)
[2021-11-29] MEDS: METOCLOPRAMIDE HCL 10MG/2ML VIAL IV SCH ×4 (05:42→22:49)
[2021-11-29] MEDS: PANTOPRAZOLE SODIUM 40 MG/VIAL IV SCH ×2 (08:59→22:49)
[2021-11-29] MEDS: DOCUSATE SODIUM SUGAR FREE 100MG/10ML UDC NG SCH (08:59)
[2021-11-29 10:07] LABS: BG BASE EXCESS -4.6 mmol/L (-2.0-2.0); BG CARBOXYHEMOGLOBIN 0.9 % (0.5-1.5); BG DEOXYHEMOGLOBIN 1.2 % (0.0-5.0); BG FRACTION INSPIRED OXYGEN 28; BG METHEMOGLOBIN 0.4 % (0.0-1.5); BG OXYGEN SATURATION 98.8 % (92.0-98.5); BG OXYHEMOGLOBIN 97.5 % (94.0-97.0); BG PCO2 47.9 mmHg (35.0-45.0); BG PO2 133.9 mmHg (75.0-100.0); BG SAMPLE SITE RIGHT RADIAL; BG TOTAL HEMOGLOBIN 9.2 g/dL (12.0-18.0); BG VENT MODE COOL AEROSOL
[2021-11-29] MEDS: DEXT 5%/0.45% NACL 1000ML 1,000 ML IV SCH (18:01)
[2021-11-30] VITALS (76 sets, daily range): BP systolic 70–181; BP diastolic 41–121
[2021-11-30] MEDS: IPRATROPIUM/ALBUTEROL 0.5-3(2.5)MG/3ML NEB HHN SCH ×6 (01:27→20:48)
[2021-11-30] MEDS: EPOETIN ALFA-EPBX 10,000 UNIT/ML VIAL SUBCUT SCH (02:12)
[2021-11-30] MEDS: GUAIFENESIN 200MG/10ML SUGAR FREE UDC PO SCH ×3 (05:22→17:16)
[2021-11-30] MEDS: METOCLOPRAMIDE HCL 10MG/2ML VIAL IV SCH ×3 (05:22→18:20)
[2021-11-30] MEDS ORDERED: PROPOFOL 10MG/ML 100ML 100 ML IV PRN (08:00)
[2021-11-30] MEDS: DOCUSATE SODIUM SUGAR FREE 100MG/10ML UDC NG SCH (08:34)
[2021-11-30] MEDS: PANTOPRAZOLE SODIUM 40 MG/VIAL IV SCH ×2 (09:39→20:50)
[2021-11-30 10:33] LABS: HEMATOCRIT 26.5 % (36.0-48.0); HEMOGLOBIN 8.5 g/dL (12.0-16.0)
[2021-11-30 10:45] LABS: PARTIAL THROMBOPLASTIN TIME 33.8 sec (23.4-31.0); PROTHROMBIN TIME 11.1 sec (9.6-11.0)
[2021-11-30 11:54] LABS: BG CARBOXYHEMOGLOBIN 0.6 % (0.5-1.5); BG DEOXYHEMOGLOBIN 0.4 % (0.0-5.0); BG FRACTION INSPIRED OXYGEN 100; BG HCO3 ACT 26.9 mmol/L (22.0-26.0); BG METHEMOGLOBIN 0.4 % (0.0-1.5); BG OXYGEN SATURATION 99.6 % (92.0-98.5); BG OXYHEMOGLOBIN 98.6 % (94.0-97.0); BG PCO2 43.2 mmHg (35.0-45.0); BG PH 7.412 (7.350-7.450); BG SAMPLE SITE RIGHT RADIAL; BG TOTAL HEMOGLOBIN 8.8 g/dL (12.0-18.0); BG TOTAL RESPIRATORY RATE 16 b/min; BG VENT MODE VENT - AC
[2021-11-30] MEDS: PROPOFOL 10MG/ML 100ML 100 ML IV PRN ×2 (15:52→20:55)
[2021-11-30] MEDS: DEXT 5%/0.45% NACL 1000ML 1,000 ML IV SCH (18:20)
[2021-11-30] MEDS ORDERED: NOREPINEPHRINE 32 MG in DEXT 5% WATER 218 ML IV PRN (19:15)
[2021-11-30] MEDS: PHENYLEPHRINE 100 MG in DEXT 5% WATER 240 ML IV PRN (20:53)
[2021-12-01] VITALS (97 sets, daily range): BP systolic 81–159; BP diastolic 39–97
[2021-12-01] MEDS: IPRATROPIUM/ALBUTEROL 0.5-3(2.5)MG/3ML NEB HHN SCH ×6 (00:34→20:40)
[2021-12-01] MEDS: METOCLOPRAMIDE HCL 10MG/2ML VIAL IV SCH ×4 (01:05→17:52)
[2021-12-01 05:40] LABS: HEMATOCRIT. 24.2 % (36.0-48.0); HEMOGLOBIN. 7.6 g/dL (12.0-16.0); MEAN CORPUSCULAR HEMOGLOBIN 24.4 pg (28.0-32.0); PLATELET 191 x1000/uL (130-400); RED CELL DISTRIBUTION WIDTH 17.1 % (11.6-14.6)
[2021-12-01] MEDS: GUAIFENESIN 200MG/10ML SUGAR FREE UDC PO SCH ×5 (05:50→17:01)
[2021-12-01] MEDS: PROPOFOL 10MG/ML 100ML 100 ML IV PRN ×2 (05:52→20:38)
[2021-12-01] MEDS ORDERED: POTASSIUM CHLORIDE INJ 40 MEQ in DEXT 5% WATER 250 ML IV ONE (07:45)
[2021-12-01] MEDS: DOCUSATE SODIUM SUGAR FREE 100MG/10ML UDC NG SCH (08:16)
[2021-12-01] MEDS: PANTOPRAZOLE SODIUM 40 MG/VIAL IV SCH ×2 (08:17→20:34)
[2021-12-01] MEDS: KCL 20MEQ/100ML X 2 FOR TOTAL KCL 40MEQ/200ML IV SCH ×2 (09:02→11:34)
[2021-12-01 11:13] LABS: PLATELET ESTIMATE NORMAL
[2021-12-01] MEDS ORDERED: LORAZEPAM 2MG/ML CPJ IV SCH (11:30)
[2021-12-01] MEDS ORDERED: DILTIAZEM HCL 5MG/ML 5ML VIAL IV NR (13:45)
[2021-12-01] MEDS: DILTIAZEM HCL 30MG TABLET PO SCH ×2 (14:00→21:24)
[2021-12-01] MEDS ORDERED: DILTIAZEM HCL 5MG/ML 5ML VIAL IV PRN ×2 (14:45→15:00)
[2021-12-01] MEDS ORDERED: PROPOFOL 10MG/ML 100ML 100 ML IV PRN (16:45)
[2021-12-01] MEDS: DEXT 5%/0.45% NACL 1000ML 1,000 ML IV SCH (17:52)
[2021-12-01] MEDS: ACETAMINOPHEN 650MG SUPP PR PRN ×2 (21:03→22:43)
[2021-12-01] MEDS: PIPERACILLIN/TAZOBACTAM 3.375 G in DEXTROSE 5% WATER 50 ML IV SCH (21:25)
[2021-12-01] MEDS ORDERED: AMIODARONE HCL 900 MG in DEXT 5% WATER 482 ML IV PRN (22:15)
[2021-12-01] MEDS ORDERED: AMIODARONE HCL 150 MG in DEXT 5% WATER 100 ML IV NR (22:30)
[2021-12-02] VITALS (91 sets, daily range): BP systolic 80–161; BP diastolic 45–97
[2021-12-02] MEDS: IPRATROPIUM/ALBUTEROL 0.5-3(2.5)MG/3ML NEB HHN SCH ×6 (00:27→20:48)
[2021-12-02] MEDS ORDERED: AMIODARONE HCL 900 MG in DEXT 5% WATER 482 ML IV SCH (00:30)
[2021-12-02 00:33] LABS: HEMOGLOBIN. 8.3 g/dL (12.0-16.0); MEAN CORPUSCULAR HEMOGLOBIN 24.8 pg (28.0-32.0); MEAN CORPUSCULAR VOLUME 78.1 fL (81.0-99.0); MEAN PLATELET VOLUME 7.8 fl (7.4-10.4); PLATELET 164 x1000/uL (130-400); RED BLOOD CELL COUNT 3.33 mill/uL (4.2-5.4); RED CELL DISTRIBUTION WIDTH 17.3 % (11.6-14.6)
[2021-12-02] MEDS: METOCLOPRAMIDE HCL 10MG/2ML VIAL IV SCH ×4 (00:33→17:20)
[2021-12-02] MEDS ORDERED: VANCOMYCIN 2,000 MG in DEXT 5% WATER 500 ML IV NR (01:00)
[2021-12-02 02:28] LABS: PLATELET ESTIMATE NORMAL
[2021-12-02] MEDS: PHENYLEPHRINE 100 MG in DEXT 5% WATER 240 ML IV PRN ×2 (02:34→12:08)
[2021-12-02] MEDS ORDERED: DILTIAZEM HCL 5MG/ML 5ML VIAL IV PRN (03:00)
[2021-12-02] MEDS: ACETAMINOPHEN 650MG SUPP PR PRN (04:33)
[2021-12-02 05:27] LABS: HEMATOCRIT. 25.7 % (36.0-48.0); MEAN CORPUSCULAR HEMOGLOBIN 24.3 pg (28.0-32.0); MEAN CORPUSCULAR VOLUME 78.3 fL (81.0-99.0); MEAN PLATELET VOLUME 8.1 fl (7.4-10.4); PLATELET 178 x1000/uL (130-400); RED BLOOD CELL COUNT 3.28 mill/uL (4.2-5.4); RED CELL DISTRIBUTION WIDTH 17.2 % (11.6-14.6)
[2021-12-02] MEDS: DILTIAZEM HCL 30MG TABLET PO SCH ×3 (05:40→22:00)
[2021-12-02] MEDS: GUAIFENESIN 200MG/10ML SUGAR FREE UDC PO SCH ×4 (05:41→17:19)
[2021-12-02] MEDS: PANTOPRAZOLE SODIUM 40 MG/VIAL IV SCH ×2 (08:58→21:46)
[2021-12-02] MEDS: DOCUSATE SODIUM SUGAR FREE 100MG/10ML UDC NG SCH (08:58)
[2021-12-02 09:51] LABS: PLATELET ESTIMATE NORMAL
[2021-12-02] MEDS ORDERED: HEPARIN SODIUM 1,000 UNIT/1ML VIAL IV NR (10:00)
[2021-12-02] MEDS ORDERED: MORPHINE SULFATE 2 MG/ML CPJ (NOT FOR IM USE) IV PRN (10:30)
[2021-12-02] MEDS ORDERED: NALOXONE HCL 0.4MG/ML VIAL IV PRN (10:30)
[2021-12-02 13:04] LABS: BG BASE EXCESS 1.8 mmol/L (-2.0-2.0); BG CARBOXYHEMOGLOBIN 0.9 % (0.5-1.5); BG DEOXYHEMOGLOBIN 1.3 % (0.0-5.0); BG FRACTION INSPIRED OXYGEN 30; BG HCO3 ACT 26.6 mmol/L (22.0-26.0); BG METHEMOGLOBIN 0.1 % (0.0-1.5); BG OXYGEN SATURATION 98.7 % (92.0-98.5); BG OXYHEMOGLOBIN 97.7 % (94.0-97.0); BG PO2 130.9 mmHg (75.0-100.0); BG SAMPLE SITE RIGHT RADIAL; BG VENT MODE VENT - CPAP
[2021-12-02] MEDS: PIPERACILLIN/TAZOBACTAM 3.375 G in DEXTROSE 5% WATER 50 ML IV SCH ×2 (13:53→21:45)
[2021-12-02] MEDS: DEXT 5%/0.45% NACL 1000ML 1,000 ML IV SCH ×2 (17:20→19:00)
[2021-12-02] MEDS ORDERED: RACEPINEPHRINE 2.25% 0.5ML NEB VIAL HHN PRN (19:45)
[2021-12-02] MEDS ORDERED: METHYLPREDNISOLONE SOD SUCC 125 MG/2 ML VIAL IV NR (20:30)
[2021-12-02] MEDS: EPOETIN ALFA-EPBX 10,000 UNIT/ML VIAL SUBCUT SCH (21:46)
[2021-12-02] MEDS ORDERED: LEVETIRACETAM 500MG/5ML CUP PO SCH (22:00)
[2021-12-02] MEDS ORDERED: PROPOFOL 10MG/ML 100ML 100 ML IV PRN (22:45)
[2021-12-02] MEDS ORDERED: AMIKACIN SULFATE 700 MG in SODIUM CHLORIDE 0.9% 100 ML IV NR (23:30)
[2021-12-03] MEDS ORDERED: LEVETIRACETAM 500MG/5ML CUP PO SCH (09:00)
[2021-12-03] MEDS ORDERED: SUCCINYLCHOLINE CHLORIDE 200MG/10ML IV ONE (09:03)
[2021-12-03] MEDS ORDERED: ATROPINE SULFATE 1MG/10ML SYR ONE (09:03)
[2021-12-03] MEDS ORDERED: ETOMIDATE 2MG/ML 10ML VIAL IV ONE (09:03)
[2021-12-03] MEDS ORDERED: SODIUM BICARBONATE 8.4% 1 MEQ/ML 50ML SYR IV ONE (09:08)
[2021-12-03] MEDS ORDERED: EPINEPHRINE 0.1MG/ML (1:10,000) 10ML SYR ONE (09:08)
== END 2021-12-02 23:26 | DRG 5 ==
LOC: ER 16:06 → 7EST 20:20 → ENRESERV 21:52 → MICUSO 10-19 22:26 → MICUNO 10-20 18:00 → CVICU 10-21 20:00 → 5EST 11-12 18:13 → MICUNO 11-30 07:49
PROVIDERS: ADMIT Internal Medicine; ATTEND Internal Medicine
PROC: 02H633Z Insertion of Infusion Device into Right Atrium, Percutaneous Approach (ICD-10-PCS; 2021-10-20)
PROC: B548ZZA Ultrasonography of Superior Vena Cava, Guidance (ICD-10-PCS; 2021-10-20)
PROC: 30233N1 Transfusion of Nonautologous Red Blood Cells into Peripheral Vein, Percutaneous Approach (ICD-10-PCS; 2021-10-21)
PROC: 5A09457 Assistance with Respiratory Ventilation, 24-96 Consecutive Hours, Continuous Positive Airway Pressure (ICD-10-PCS; 2021-10-21)
PROC: 5A1D70Z Performance of Urinary Filtration, Intermittent, Less than 6 Hours Per Day (ICD-10-PCS; 2021-10-22)
PROC: 5A1D70Z Performance of Urinary Filtration, Intermittent, Less than 6 Hours Per Day (ICD-10-PCS; 2021-10-24)
PROC: 5A09357 Assistance with Respiratory Ventilation, Less than 24 Consecutive Hours, Continuous Positive Airway Pressure (ICD-10-PCS; 2021-10-25)
PROC: 02HV33Z Insertion of Infusion Device into Superior Vena Cava, Percutaneous Approach (ICD-10-PCS; 2021-10-26)
PROC: B548ZZA Ultrasonography of Superior Vena Cava, Guidance (ICD-10-PCS; 2021-10-26)
PROC: 5A09457 Assistance with Respiratory Ventilation, 24-96 Consecutive Hours, Continuous Positive Airway Pressure (ICD-10-PCS; 2021-10-26)
PROC: 5A1D70Z Performance of Urinary Filtration, Intermittent, Less than 6 Hours Per Day (ICD-10-PCS; 2021-10-26)
PROC: 5A1D70Z Performance of Urinary Filtration, Intermittent, Less than 6 Hours Per Day (ICD-10-PCS; 2021-10-27)
PROC: 0BH17EZ Insertion of Endotracheal Airway into Trachea, Via Natural or Artificial Opening (ICD-10-PCS; 2021-10-28)
PROC: 5A1955Z Respiratory Ventilation, Greater than 96 Consecutive Hours (ICD-10-PCS; 2021-10-28)
PROC: 5A1D70Z Performance of Urinary Filtration, Intermittent, Less than 6 Hours Per Day (ICD-10-PCS; 2021-10-28)
PROC: 5A1D70Z Performance of Urinary Filtration, Intermittent, Less than 6 Hours Per Day (ICD-10-PCS; 2021-10-29)
PROC: 5A1D70Z Performance of Urinary Filtration, Intermittent, Less than 6 Hours Per Day (ICD-10-PCS; 2021-10-31)
PROC: 5A1D70Z Performance of Urinary Filtration, Intermittent, Less than 6 Hours Per Day (ICD-10-PCS; 2021-11-01)
PROC: 5A1D70Z Performance of Urinary Filtration, Intermittent, Less than 6 Hours Per Day (ICD-10-PCS; 2021-11-03)
PROC: 4A10X4Z Monitoring of Central Nervous Electrical Activity, External Approach (ICD-10-PCS; 2021-11-05)
PROC: 5A1D70Z Performance of Urinary Filtration, Intermittent, Less than 6 Hours Per Day (ICD-10-PCS; 2021-11-05)
PROC: 5A1D70Z Performance of Urinary Filtration, Intermittent, Less than 6 Hours Per Day (ICD-10-PCS; 2021-11-09)
PROC: 0B110F4 Bypass Trachea to Cutaneous with Tracheostomy Device, Open Approach (ICD-10-PCS; 2021-11-11)
PROC: 5A1D70Z Performance of Urinary Filtration, Intermittent, Less than 6 Hours Per Day (ICD-10-PCS; 2021-11-11)
PROC: 5A1D70Z Performance of Urinary Filtration, Intermittent, Less than 6 Hours Per Day (ICD-10-PCS; 2021-11-13)
PROC: 5A1D70Z Performance of Urinary Filtration, Intermittent, Less than 6 Hours Per Day (ICD-10-PCS; 2021-11-16)
PROC: 5A1D70Z Performance of Urinary Filtration, Intermittent, Less than 6 Hours Per Day (ICD-10-PCS; 2021-11-18)
PROC: 0DH63UZ Insertion of Feeding Device into Stomach, Percutaneous Approach (ICD-10-PCS; 2021-11-19)
PROC: 0DB78ZX Excision of Stomach, Pylorus, Via Natural or Artificial Opening Endoscopic, Diagnostic (ICD-10-PCS; 2021-11-19)
PROC: 5A1D70Z Performance of Urinary Filtration, Intermittent, Less than 6 Hours Per Day (ICD-10-PCS; 2021-11-20)
PROC: 5A1D70Z Performance of Urinary Filtration, Intermittent, Less than 6 Hours Per Day (ICD-10-PCS; 2021-11-22)
PROC: 5A1D70Z Performance of Urinary Filtration, Intermittent, Less than 6 Hours Per Day (ICD-10-PCS; 2021-11-27)
PROC: 0JH63XZ Insertion of Tunneled Vascular Access Device into Chest Subcutaneous Tissue and Fascia, Percutaneous Approach (ICD-10-PCS; 2021-11-28)
PROC: 02HV33Z Insertion of Infusion Device into Superior Vena Cava, Percutaneous Approach (ICD-10-PCS; 2021-11-28)
PROC: B5181ZA Fluoroscopy of Superior Vena Cava using Low Osmolar Contrast, Guidance (ICD-10-PCS; 2021-11-28)
PROC: 5A1D70Z Performance of Urinary Filtration, Intermittent, Less than 6 Hours Per Day (ICD-10-PCS; 2021-11-29)
PROC: 0BH17EZ Insertion of Endotracheal Airway into Trachea, Via Natural or Artificial Opening (ICD-10-PCS; principal; 2021-11-30)
PROC: 30233R1 Transfusion of Nonautologous Platelets into Peripheral Vein, Percutaneous Approach (ICD-10-PCS; 2021-11-30)
PROC: 0BH17EZ Insertion of Endotracheal Airway into Trachea, Via Natural or Artificial Opening (ICD-10-PCS; 2021-12-02)
PROC: 5A12012 Performance of Cardiac Output, Single, Manual (ICD-10-PCS; 2021-12-02)
PROC: 5A1D70Z Performance of Urinary Filtration, Intermittent, Less than 6 Hours Per Day (ICD-10-PCS; 2021-12-02)
DX: A41.9 Sepsis, unspecified organism (principal); R65.21 Severe sepsis with septic shock; G92.8 Other toxic encephalopathy; I50.33 Acute on chronic diastolic (congestive) heart failure; E44.0 Moderate protein-calorie malnutrition; J18.9 Pneumonia, unspecified organism; D68.69 Other thrombophilia; R16.0 Hepatomegaly, not elsewhere classified; D69.6 Thrombocytopenia, unspecified; J96.01 Acute respiratory failure with hypoxia; J96.02 Acute respiratory failure with hypercapnia; N18.6 End stage renal disease; E11.649 Type 2 diabetes mellitus with hypoglycemia without coma; D62 Acute posthemorrhagic anemia; D63.8 Anemia in other chronic diseases classified elsewhere; E87.4 Mixed disorder of acid-base balance; G90.8 Other disorders of autonomic nervous system; E11.40 Type 2 diabetes mellitus with diabetic neuropathy, unspecified; L97.919 Non-pressure chronic ulcer of unspecified part of right lower leg with unspecified severity; I13.2 Hypertensive heart and chronic kidney disease with heart failure and with stage 5 chronic kidney disease, or end stage renal disease; E11.22 Type 2 diabetes mellitus with diabetic chronic kidney disease; E04.9 Nontoxic goiter, unspecified; G40.909 Epilepsy, unspecified, not intractable, without status epilepticus; E11.622 Type 2 diabetes mellitus with other skin ulcer; I48.0 Paroxysmal atrial fibrillation; F02.80 Dementia in other diseases classified elsewhere, unspecified severity, without behavioral disturbance, psychotic disturbance, mood disturbance, and anxiety; G30.9 Alzheimer's disease, unspecified; I25.2 Old myocardial infarction; I50.32 Chronic diastolic (congestive) heart failure; S80.811A Abrasion, right lower leg, initial encounter; E11.51 Type 2 diabetes mellitus with diabetic peripheral angiopathy without gangrene; D53.9 Nutritional anemia, unspecified; E66.2 Morbid (severe) obesity with alveolar hypoventilation; I27.29 Other secondary pulmonary hypertension; I47.1 Supraventricular tachycardia; I48.92 Unspecified atrial flutter; K29.70 Gastritis, unspecified, without bleeding; R13.12 Dysphagia, oropharyngeal phase; E05.90 Thyrotoxicosis, unspecified without thyrotoxic crisis or storm; K80.20 Calculus of gallbladder without cholecystitis without obstruction; R53.81 Other malaise; T82.838A Hemorrhage due to vascular prosthetic devices, implants and grafts, initial encounter; T82.49XA Other complication of vascular dialysis catheter, initial encounter; J95.01 Hemorrhage from tracheostomy stoma; Z20.822 Contact with and (suspected) exposure to COVID-19; L97.929 Non-pressure chronic ulcer of unspecified part of left lower leg with unspecified severity; Y92.238 Other place in hospital as the place of occurrence of the external cause; X58.XXXA Exposure to other specified factors, initial encounter; Y84.1 Kidney dialysis as the cause of abnormal reaction of the patient, or of later complication, without mention of misadventure at the time of the procedure; G93.89 Other specified disorders of brain; Z95.810 Presence of automatic (implantable) cardiac defibrillator; Z99.2 Dependence on renal dialysis; Z99.3 Dependence on wheelchair; Z99.11 Dependence on respirator [ventilator] status; Z68.43 Body mass index [BMI] 50.0-59.9, adult; Z79.82 Long term (current) use of aspirin; Z79.899 Other long term (current) drug therapy; Y93.89 Activity, other specified; Y92.89 Other specified places as the place of occurrence of the external cause; Y99.8 Other external cause status
CPT/HCPCS: 31500; 36415; 36556; 36558; 36600; 71045; 74018; 76700; 76937; 77001; 80048; 80053; 80061; 80076; 82140; 82375; 82607; 82728; 82746; 82805; 82962; 82977; 83036; 83540; 83550; 83735; 83880; 84100; 84145; 84439; 84443; 84478; 84481; 84484; 85014; 85018; 85025; 85049; 85384; 86705; 86709; 86803; 86850; 86900; 86920; 87070; 87077; 87186; 87340; 87426; 88305; 88312; 88313; 92610; 93005; 93306; 93923; 93970; 94002; 94003; 94640; 94660; 95816; 99285; A6261; C1725; C1750; C1752; C1769; C1893; C9113; J0278; J0282; J0330; J0461; J0690; J0692; J0696; J0885; J1642; J1644; J1815; J2060; J2250; J2370; J2543; J2704; J2765; J2930; J2997; J3010; J3370; J3480; J3490; J7040; J7042; J7050; J7060; J7608; P9021; P9034